=== PATIENT | female | born 1965 | race Caucasian/White ===

== ENCOUNTER → 2017-06-11 | Outpatient (CLI) | payer BC ==
[2015-11-01 16:28] VITALS: BP 98/56
--- NOTE | 2017-06-12 13:12 | MG ---
HISTORY: SCREENING Comparison: None available. FINDINGS: Bilateral CC and MLO projections of the right and left breast were obtained. Heterogeneously dense fibroglandular tissue is seen to be present. No significant architectural distortion, mass or clust ered microcalcifications can be observed to suggest malignancy. No skin thickening or nipple retrac tion is appreciated. No pathological lymphadenopathy can be identified. Benign-appearing calcifica tions scattered throughout the right and left breasts are observed. IMPRESSION: NO RADIOGRAPHIC EVIDENCE OF MALIGNANCY. ACR CATEGORY: 2 - benign findings. FOLLOW-UP EXAM 1 YEAR. Diagnostic CAD was utilized and reviewed. * 0 (ZERO) - ASSESSMENT INCOMPLETE; ADDITIONAL IMAGING IS NEEDED. * 1/1 (ONE) - NEGATIVE. * 2/II (TWO) - BENIGN FINDINGS. * 3/III (THREE) - PROBABLY BENIGN FINDING; SHORT INTERVAL FOLLOW-UP SUGGESTED. * 4/IV (FOUR) - SUSPICIOUS ABNORMALITY; BIOPSY SHOULD BE CONSIDERED. * 5/V - HIGHLY SUSPICIOUS OF MALIGNANCY; BIOPSY SHOULD BE PERFORMED. A NEGATIVE X-RAY REPORT SHOULD NOT DELAY BIOPSY IF A DOMINANT OR CLINICALLY SUSPICIOUS MASS IS PRESENT; 4 TO 8 PERCENT OF CANCERS ARE NOT IDENTIFIED BY X-RAY. A NEG ATIVE REPORT MAY REINFORCE THE CLINICAL IMPRESSION. ADENOSIS AND DENSE BREASTS MAY OBSCURE AN UNDER LYING NEOPLASM. Reported By:
== END ==
LOC: RAD 15:57
PROVIDERS: ATTEND Obstetrics & Gynecology
DX: Z12.31 Encounter for screening mammogram for malignant neoplasm of breast (principal)
CPT/HCPCS: 77067

== ENCOUNTER → 2017-07-02 | Outpatient (CLI) | payer BC ==
[2015-11-01 16:28] VITALS: BP 98/56
[~2017-07-02] MED LIST: NS 100 ML IV 100 ML IV ONE
[2017-07-02 10:09] LABS: CREATININE 0.75 mg/dL (0.55-1.02)
--- NOTE | 2017-07-02 11:54 | CT ---
CT NECK WITH IV CONTRAST CLINICAL INDICATION: Bilateral neck swelling. TECHNIQUE: Multiple-row detector helical CT examination of the neck with IV contrast per standard de partmental protocol.Dose reduction techniques including Automated Exposure Control (AEC) and adjustme nt of mA and kV were utlized. COMPARISON: None. FINDINGS: The aerodigestive structures are within normal limits. Specifically, the nasal cavity, nasopharynx, oral cavity, oropharynx, hypopharynx, larynx, and visualized trachea and esophagus demonstrate no mas ses or abnormal enhancement. No pathologically enlarged, necrotic, or otherwise abnormal lymph nodes. Submandibular glands are normal. Bilateral, small parotid calcifications and small intra parotid lymp h nodes. No ductal dilatation. The thyroid gland is normal in size without focal abnormality. Evaluation of the visualized portions of brain parenchyma and orbits demonstrates no abnormality. The visualized paranasal sinuses are predominantly clear. The tympanomastoid cavities are unopacified. T here is normal intravascular enhancement. Limited evaluation of the lung apices demonstrates no abnormality. The visualized osseous structures are within normal limits. Following administration of intravenous contrast material, there is no abnormal enhancement. IMPRESSION: 1. Bilateral, small parotid calcifications and intra parotid lymph nodes without evidence of inflamma tion or ductal obstruction. Reported By:
== END | disposition home or self-care (01) | DRG 156 ==
LOC: RAD 09:39
PROVIDERS: ATTEND Internal Medicine
DX: K11.8 Other diseases of salivary glands (principal)
CPT/HCPCS: 36415; 70491; 82565; 84520; A4222

== ENCOUNTER 2020-06-20 18:11 | Observation (INO) ==
[2020-06-20] MEDS ORDERED: TUSSIONEX PENNKINETIC SUSP ONE (20:59)
[2020-06-20] MEDS ORDERED: NS 1/2 1000 ML IV 1,000 ML IV ONE (21:00)
[2020-06-20] MEDS ORDERED: DUONEB 0.5 MG/3 MG (3 mL) NEB SCH (21:00)
[2020-06-20] MEDS ORDERED: ROBITUSSIN DM ONE (21:00)
[2020-06-20] MEDS ORDERED: VSL#3 PO ONE (21:01)
[2020-06-20] MEDS ORDERED: LEVAQUIN PREMIX IV 750 MG 750 MG/150 ML BAG IV ONE (21:01)
[2020-06-20] MEDS ORDERED: ZOFRAN INJ 4 MG VIAL IVP PRN (21:05)
[2020-06-20] MEDS ORDERED: TYLENOL 325 MG TAB PO PRN (21:05)
[2020-06-20] MEDS ORDERED: ZOFRAN INJ 4 MG VIAL ONE (21:09)
[2020-06-20] MEDS ORDERED: TYLENOL 325 MG TAB PO ONE (21:10)
[2020-06-20 21:20] LABS: BASOPHILS % (AUTO) 0.4 % (0.2-1.0); EOSINOPHILS % (AUTO) 0.1 % (0.9-2.9); HEMATOCRIT 46.8 % (36.0-47.0); HEMOGLOBIN 16.1 g/dL (12.0-16.0); LYMPHOCYTES # (AUTO) 1.2 X10^3/uL (1.3-2.9); LYMPHOCYTES % (AUTO) 22.3 % (21.0-51.0); MEAN CORPUSCULAR HEMOGLOBIN 28.6 pg (27.0-34.0); MEAN CORPUSCULAR HGB CONC 34.3 g/dL (33.0-35.0); MEAN CORPUSCULAR VOLUME 83.2 fL (80.0-100.0); MEAN PLATELET VOLUME 8.5 fL (7.4-11.0); MONOCYTES # (AUTO) 0.5 x10^3/uL (0.3-0.8); MONOCYTES % (AUTO) 8.5 % (0.0-13.0); NEUTROPHILS # (AUTO) 3.6 x10^3/uL (2.2-4.8); NEUTROPHILS % (AUTO) 68.7 % (42.0-75.0); PLATELET COUNT 160 X10^3/uL (150.0-450.0); RED BLOOD COUNT 5.63 X10^6/uL (3.5-5.4); RED CELL DISTRIBUTION WIDTH 13.1 % (11.6-16.5); WHITE BLOOD COUNT 5.3 X10^3/uL (3.6-10.0)
[2020-06-20 21:31] LABS: ALANINE AMINOTRANSFERASE 34 Units/L (12-78); ALBUMIN 3.7 g/dL (3.4-5.0); ALKALINE PHOSPHATASE 76 Units/L (46-116); ASPARTATE AMINO TRANSFERASE 52 Units/L (15-37); BLOOD UREA NITROGEN 8 mg/dL (7-18); CALCIUM 8.9 mg/dL (8.5-10.1); CARBON DIOXIDE 25.5 mmol/L (21-32); CHLORIDE 99 mmol/L (98-107); COR NA(FOR HYPERGLY) 136 mmol/L (136-145); CREATININE 0.78 mg/dL (0.55-1.02); SODIUM 135 mmol/L (136-145); TOTAL PROTEIN 7.9 g/dL (6.4-8.2); eGFR NON BLACK RACES > 60 (>60)
[2020-06-20] MEDS: LEVAQUIN PREMIX IV 750 MG 750 MG/150 ML BAG IV SCH (21:49)
[2020-06-20] MEDS: VSL#3 PO SCH (21:49)
[2020-06-20] MEDS: NS 1/2 1000 ML IV 1,000 ML IV SCH (21:49)
[2020-06-20] MEDS: ROBITUSSIN DM PO SCH (21:50)
[2020-06-20] MEDS: TUSSIONEX PENNKINETIC SUSP PO SCH (21:50)
[2020-06-20 21:51] LABS: ABG ALLEN TEST POS; ABG BASE EXCESS 1.9 mmol/L (-2.0-2.0); ABG HCO3 25.6 mmol/L (22-26)
[2020-06-20] MEDS: MUCOMYST 20% 200 MG/ML NEB SCH (22:10)
[2020-06-20] MEDS ORDERED: DUONEB 0.5 MG/3 MG (3 mL) NEB ONE (22:10)
[2020-06-20] MEDS: PULMICORT NEB TX 0.5 MG NEB SCH (22:10)
[2020-06-20] MEDS ORDERED: MUCOMYST (RESPIRATORY USE ONLY) ONE (22:11)
[2020-06-20] MEDS ORDERED: PULMICORT NEB TX 0.5 MG NEB ONE (22:11)
[2020-06-21 05:51] LABS: ABG HCO3 27.9 mmol/L (22-26)
[2020-06-21 05:52] LABS: ABG ALLEN TEST POS
[2020-06-21 06:15] LABS: BASOPHILS % (AUTO) 0.3 % (0.2-1.0); HEMOGLOBIN 14.6 g/dL (12.0-16.0); LYMPHOCYTES # (AUTO) 0.9 X10^3/uL (1.3-2.9); LYMPHOCYTES % (AUTO) 19.2 % (21.0-51.0); MEAN CORPUSCULAR HEMOGLOBIN 28.8 pg (27.0-34.0); MEAN CORPUSCULAR HGB CONC 34.8 g/dL (33.0-35.0); MEAN CORPUSCULAR VOLUME 82.8 fL (80.0-100.0); MEAN PLATELET VOLUME 8.7 fL (7.4-11.0); MONOCYTES # (AUTO) 0.4 x10^3/uL (0.3-0.8); MONOCYTES % (AUTO) 8.7 % (0.0-13.0); NEUTROPHILS # (AUTO) 3.4 x10^3/uL (2.2-4.8); NEUTROPHILS % (AUTO) 71.8 % (42.0-75.0); PLATELET COUNT 135 X10^3/uL (150.0-450.0); RED BLOOD COUNT 5.07 X10^6/uL (3.5-5.4); RED CELL DISTRIBUTION WIDTH 13.1 % (11.6-16.5); WHITE BLOOD COUNT 4.7 X10^3/uL (3.6-10.0)
--- NOTE | 2020-06-21 06:32 | RAD ---
HISTORYShortness of breathSTUDYChest AP portableCOMPARISONNoneFINDINGSThe heart is within normal limits in size. The chano are normal. The lungs are well inflated and free of acute infiltrates. No pleural effusions are identified. Bony thorax is unremarkable.IMPRESSIONLungs clearElectronically signed by: DUNIA KNIGHT (Jun 21, 2020 06:31:32)
[2020-06-21 07:12] LABS: ALANINE AMINOTRANSFERASE 30 Units/L (12-78); ALBUMIN 3.3 g/dL (3.4-5.0); ALKALINE PHOSPHATASE 67 Units/L (46-116); ASPARTATE AMINO TRANSFERASE 48 Units/L (15-37); BLOOD UREA NITROGEN 8 mg/dL (7-18); CALCIUM 8.3 mg/dL (8.5-10.1); CARBON DIOXIDE 23.8 mmol/L (21-32); CHLORIDE 99 mmol/L (98-107); COR CA(FOR HYPOALB) 8.9 mg/dL (8.5-10.1); COR NA(FOR HYPERGLY) 135 mmol/L (136-145); CREATININE 0.65 mg/dL (0.55-1.02); SODIUM 134 mmol/L (136-145); eGFR NON BLACK RACES > 60 (>60)
[2020-06-21] MEDS ORDERED: K-DUR TAB 20 MEQ PO PRN (07:58)
[2020-06-21] MEDS ORDERED: POTASSIUM CHL 60 MEQ/NS 0.45% 500 ML IV PRN (07:58)
[2020-06-21] MEDS ORDERED: K-RIDER 10 MEQ/NS 100 ML 10 MEQ/100 ML BAG IV PRN (07:58)
[2020-06-21] MEDS ORDERED: POTASSIUM CHL 40 MEQ/NS 0.45% 500 ML IV PRN (07:58)
[2020-06-21] MEDS ORDERED: MICRO K EXTEN CAP 10 MEQ PO PRN (07:58)
[2020-06-21] MEDS ORDERED: KLOR-CON PO PRN (07:58)
[2020-06-21] MEDS ORDERED: POTASSIUM CHLORIDE LIQ 20 MEQ UDC PO PRN (07:58)
[2020-06-21] MEDS ORDERED: MAGNESIUM SULFATE 1 GRAM/100 mL PREMIX 1 GM/100 ML BAG IV PRN (07:58)
[2020-06-21] MEDS ORDERED: K-DUR TAB 20 MEQ PO ONE (08:39)
[2020-06-21] MEDS ORDERED: DUONEB 0.5 MG/3 MG (3 mL) NEB SCH (09:00)
[2020-06-21] MEDS ORDERED: DECADRON TAB ONE (10:19)
[2020-06-21] MEDS: LOVENOX INJ 40 MG SYR SC SCH (10:28)
[2020-06-21] MEDS: ROBITUSSIN DM PO SCH ×4 (10:29→20:12)
[2020-06-21] MEDS: VSL#3 PO SCH (10:29)
[2020-06-21] MEDS: DECADRON TAB PO SCH (10:30)
[2020-06-21] MEDS: TUSSIONEX PENNKINETIC SUSP PO SCH ×2 (10:31→21:01)
[2020-06-21] MEDS: TORADOL 30 MG VIAL IVP SCH ×2 (10:37→18:31)
[2020-06-21] MEDS: XOPENEX 1.25 MG/3 ML NEBULE NEB SCH ×3 (10:45→17:45)
[2020-06-21] MEDS: PULMICORT NEB TX 0.5 MG NEB SCH ×2 (10:45→21:00)
[2020-06-21] MEDS: MUCOMYST 20% 200 MG/ML NEB SCH ×2 (10:45→21:00)
[2020-06-21] MEDS ORDERED: XOPENEX 1.25 MG/3 ML NEBULE NEB ONE (10:46)
[2020-06-21] MEDS ORDERED: NS 1/2 1000 ML IV 1,000 ML IV ONE (11:55)
[2020-06-21] MEDS ORDERED: SINGULAIR TAB 10 MG ONE (12:00)
[2020-06-21] MEDS ORDERED: FLONASE NASAL SPRAY ENOSTRIL ONE (12:01)
[2020-06-21] MEDS: NS 1/2 1000 ML IV 1,000 ML IV SCH (12:31)
[2020-06-21] MEDS: SINGULAIR TAB 10 MG PO SCH (12:50)
[2020-06-21] MEDS: FLONASE NASAL SPRAY ENOSTRIL SCH ×2 (12:50→20:12)
[2020-06-21] MEDS: JANUVIA PO SCH (13:54)
--- NOTE | 2020-06-21 14:36 | DR.H&P ---
H&P - History & Physical for Day of: H&P Date: 06/20/20 - Chief Complaint Chief Complaint: FEVER, CONGESTION, NAUSEA, COUGH, SOB - History of Present Illness History of Present Illness: IS A 55 YEAR OLD PATIENT OF OURS WHO PRESENTED TO THE HOSPITAL A DIRECT ADMISSION DUE TO COMPLAINTS OF FEVER, SINUS CONGESTION, NAUSEA, COUGH, AND SHORTNESS OF BREATH X 5 DAYS. SHE ADMITS TO BEING TESTED FOR COVID-19 TWO DAYS AGO, HOWEVER, RESULTS ARE STILL PENDING. SHE HAS BEEN TAKING CIPRO 500MG PO BID X 3 DAYS WITHOUT IMPROVEMENT IN SYMPTOMS. HER PAST MEDICAL HISTORY INCLUDES: HIATAL HERNIA, IBS, DIARRHEA II, APPENDECTOMY, C- SECTION, CHOLECYSTECTOMY, HYSTERECTOMY, AND HERNIA REPAIR. ON ARRIVAL TO THE ER, VITALS WERE 100.2-101-20-95%-127/86. LABS WERE OBTAINED. ABNORMAL LAB VALUES INCLUDE THE FOLLOWING: RBC 5.63, HGB 16.1, SODIUM 135, POTASSIUM 3.4, GLUCOSE 136, FERRITIN 427, TOTAL BILI 1.30, AST 52, CRP 5.40. ABG OBTAINED AND REVEALED: PH 7.460, PC02 36.0, P02 55.0, HC03 25.6, 02 SATURATION 90, FI02 21.0. BLOOD CULTURES ARE PENDING. A CHEST XTAY WAS OBTAINED AND REVEALED: LUNG CLEAR. COVID- 19 PENDING. SHE WAS STARTED ON 1/2NS AT 75 ML/HR, LEVAQUIN 750MG IV DAILY, DECADRON 6MG PO DAILY, PULMICORT NEBS BID, XOPENEX NEBS Q6H, MUCOMYST IN NEB [place] BID, TUSSIONEX 5ML PO Q12H, ROBITUSSIN DM 10ML PO QID, LOVENOX 40MG SC DAILY, TORADOL 30MG IV Q8H, HUMULIN R SLIDING SCALE, THE POTASSIUM AND MAGNESIUM PROTOCOLS, ZOFRAN 4MG IV Q6H PRN, AND HOME MEDICATIONS WERE RESUMED. OTHERWISE, WE PLAN TO FOLLOW UP WITH AM LABS, CHEST XRAY, ABG, AND CONTINUE TO MONITOR. - Past Medical History Past Medical History: Diabetes, GERD, Hypertension Additional Medical History: IBS, HIATAL HERNIA - Past Surgical History Surgical History: Appendectomy, , Cholecystectomy, Hysterectomy Additional Surgical History: HERNIA REPAIR - Family History Family Medical History: Hypertension - Social History Alcohol Use: None Drug Use: None - Medications Home Medications: Sulfa (Sulfonamide Antibiotics) [SULFA] Allergy (Verified 06/20/20 21:28) CONTINUE taking the following medications fluticasone propionate [Flonase Allergy Relief] 1 spray INTRANASAL BID 06/20/20 [History] montelukast 10 mg PO DAILY 06/20/20 [History] nebivolol [Bystolic] 2.5 mg PO DAILY 06/20/20 [History] rosuvastatin 10 mg PO HS 06/20/20 [History] semaglutide [Ozempic] 0.5 mg SUBCUT QWEEK 06/20/20 [History] sitagliptin [Januvia] 100 mg PO DAILY 06/20/20 [History] - Review of Systems Constitutional: See HPI, Fever, Chills, Weakness Eyes: No Symptoms Reported ENT: Nose Congestion Respiratory: See HPI, Cough, Shortness of Breath, SOB with Excertion Cardiovascular: No Symptoms Reported Gastrointestinal: Nausea Genitourinary: No Symptoms Reported Musculoskeletal: No Symptoms Reported Skin: No Symptoms Reported Neurological: No Symptoms Reported - Physical Exam Vital Signs: Temperature 98.2 F Pulse Rate [Right Brachial] 97 Pulse Rate 90 Respiratory Rate 20 Blood Pressure [Right Arm] 115/61 Blood Pressure [Left Arm] 119/79 Blood Pressure 98/56 O2 Sat by Pulse Oximetry 95 Oriented: Normal Eyes: Normal Ear: Normal Nose: Normal Throat: Normal Respiratory: Diminished Throughout Cardiovascular: Tachycardia : Normal Auscultation: Bowel Sounds: Normal Palpation: Normal Tenderness: Normal Skin: Normal Musculoskeletal: Normal Psychiatric: Normal Mood Description: Calm Affect: Normal Speech Pattern: Clear - Assessment/Plan (1) Acute bronchitis Qualifiers: Bronchitis organism: unspecified organism Qualified Code(s): J20.9 - Acute bronchitis, unspecified Status: Acute Plan: ADMIT, 1/2NS AT 75 ML/HR, LEVAQUIN 750MG IV DAILY, DECADRON 6MG PO DAILY, PULMICORT NEBS BID, XOPENEX NEBS Q6H, MUCOMYST IN NEB [place] BID, TUSSIONEX 5ML PO Q12H, ROBITUSSIN DM 10ML PO QID, LOVENOX 40MG SC DAILY, TORADOL 30MG IV Q8H, HUMULIN R SLIDING SCALE, THE POTASSIUM AND MAGNESIUM PROTOCOLS, ZOFRAN 4MG IV Q6H PRN, AND HOME MEDICATIONS WERE RESUMED. (2) Fever Qualifiers: Fever type: unspecified Qualified Code(s): R50.9 - Fever, unspecified Status: Acute (3) Shortness of breath Status: Acute (4) Suspected COVID-19 virus infection Status: Acute - Allergies Allergies/Adverse Reactions: Allergies Allergy/AdvReac Type Severity Reaction Status Date / Time Sulfa (Sulfonamide Allergy Verified 06/20/20 21:28 Antibiotics) [SULFA]
[2020-06-21] MEDS: NEBIVOLOL 2.5 MG PO SCH (16:09)
[2020-06-21] MEDS: HumuLIN R SUBCUT PRN ×2 (18:02→21:01)
[2020-06-21 19:03] VITALS: BMI 42.7
[2020-06-21] MEDS ORDERED: SNACK - Diabetic Appropriate PO SCH (20:00)
[2020-06-21] MEDS: LEVAQUIN PREMIX IV 750 MG 750 MG/150 ML BAG IV SCH (20:11)
[2020-06-21] MEDS ORDERED: CRESTOR TAB 10 MG PO SCH (21:00)
[2020-06-22] MEDS: TORADOL 30 MG VIAL IVP SCH ×2 (01:51→09:59)
[2020-06-22] MEDS: NS 1/2 1000 ML IV 1,000 ML IV SCH ×2 (02:06→06:42)
[2020-06-22 05:38] LABS: BASOPHILS % (AUTO) 0.2 % (0.2-1.0); HEMATOCRIT 39.7 % (36.0-47.0); HEMOGLOBIN 13.5 g/dL (12.0-16.0); LYMPHOCYTES # (AUTO) 0.7 X10^3/uL (1.3-2.9); LYMPHOCYTES % (AUTO) 12.4 % (21.0-51.0); MEAN CORPUSCULAR HEMOGLOBIN 28.6 pg (27.0-34.0); MEAN CORPUSCULAR HGB CONC 34.1 g/dL (33.0-35.0); MONOCYTES # (AUTO) 0.4 x10^3/uL (0.3-0.8); MONOCYTES % (AUTO) 7.9 % (0.0-13.0); NEUTROPHILS # (AUTO) 4.2 x10^3/uL (2.2-4.8); NEUTROPHILS % (AUTO) 79.5 % (42.0-75.0); PLATELET COUNT 131 X10^3/uL (150.0-450.0); RED BLOOD COUNT 4.72 X10^6/uL (3.5-5.4); RED CELL DISTRIBUTION WIDTH 12.9 % (11.6-16.5); WHITE BLOOD COUNT 5.3 X10^3/uL (3.6-10.0)
[2020-06-22 05:45] LABS: ALANINE AMINOTRANSFERASE 29 Units/L (12-78); ALBUMIN 3.1 g/dL (3.4-5.0); ALKALINE PHOSPHATASE 65 Units/L (46-116); ASPARTATE AMINO TRANSFERASE 44 Units/L (15-37); BLOOD UREA NITROGEN 9 mg/dL (7-18); CALCIUM 8.3 mg/dL (8.5-10.1); CARBON DIOXIDE 27.1 mmol/L (21-32); CHLORIDE 102 mmol/L (98-107); COR NA(FOR HYPERGLY) 138 mmol/L (136-145); CREATININE 0.67 mg/dL (0.55-1.02); MAGNESIUM 2.3 mg/dL (1.7-2.9); SODIUM 137 mmol/L (136-145); TOTAL PROTEIN 6.7 g/dL (6.4-8.2); eGFR NON BLACK RACES > 60 (>60)
[2020-06-22] MEDS ORDERED: NS 1/2 1000 ML IV 1,000 ML IV ONE (06:21)
--- NOTE | 2020-06-22 06:23 | RAD ---
HISTORYSOBSTUDYCHEST, 1 [id number]/12/2020TECHNIQUEAP view of the chestFINDINGSCardiac and mediastinal contours are stable. No consolidation, segmental collapse, pleural effusion or pneumothorax.IMPRESSIONNo acute pulmonary process.Electronically signed by: Donal Starks (Jun 22, 2020 06:22:09)
[2020-06-22 06:35] LABS: ABG HCO3 25.2 mmol/L (22-26)
[2020-06-22 06:36] LABS: ABG ALLEN TEST POS
[2020-06-22] MEDS ORDERED: TUSSIONEX PENNKINETIC SUSP ONE (08:09)
[2020-06-22] MEDS: TUSSIONEX PENNKINETIC SUSP PO SCH (09:12)
[2020-06-22] MEDS: LOVENOX INJ 40 MG SYR SC SCH (09:13)
[2020-06-22] MEDS: FLONASE NASAL SPRAY ENOSTRIL SCH (09:13)
[2020-06-22] MEDS: VSL#3 PO SCH (09:14)
[2020-06-22] MEDS: DECADRON TAB PO SCH (09:20)
[2020-06-22] MEDS: JANUVIA PO SCH (09:21)
[2020-06-22] MEDS: ROBITUSSIN DM PO SCH (09:22)
[2020-06-22] MEDS: SINGULAIR TAB 10 MG PO SCH (09:22)
[2020-06-22] MEDS: PULMICORT NEB TX 0.5 MG NEB SCH (11:00)
[2020-06-22] MEDS: XOPENEX 1.25 MG/3 ML NEBULE NEB SCH (11:00)
[2020-06-22] MEDS: MUCOMYST 20% 200 MG/ML NEB SCH (11:00)
[2020-06-22] MEDS: NEBIVOLOL 2.5 MG PO SCH (11:03)
[2020-06-22 13:05] VITALS: BP 110/66
== END 2020-06-22 12:40 | disposition home or self-care (01) ==
LOC: MED/SURG
PROVIDERS: ADMIT Internal Medicine; ATTEND Internal Medicine
DX: R50.9 Fever, unspecified; Z20.818 Contact with and (suspected) exposure to other bacterial communicable diseases; R79.82 Elevated C-reactive protein (CRP); J20.9 Acute bronchitis, unspecified; R73.09 Other abnormal glucose; R06.02 Shortness of breath

== ENCOUNTER 2020-06-23 12:28 | Inpatient (IN) ==
[2020-06-23] MEDS ORDERED: NS 1000 ML 1,000 ML ONE ×3 (12:44→21:20)
[2020-06-23] MEDS ORDERED: NS 1000 ML 1,000 ML IV ONE ×2 (12:47→15:31)
--- NOTE | 2020-06-23 13:21 | RAD ---
HISTORYFever SOBSTUDYPortable AP [id number]/14/2020FINDINGSNormal heart size. The right lung is essentially clear. The left diaphragm is now obscured, previously visible. There may be a left lower lobe airspace process present. No pleural fluid or pneumothorax seen.IMPRESSIONNo definite abnormality identified although there may be a developing pneumonia in the left lower lobe. See above. Correlate clinically with follow-up to confirm or exclude.Electronically signed by: RIKA STERLING (Jun 23, 2020 13:19:41)
[2020-06-23 13:26] LABS: BASOPHILS % (AUTO) 0.1 % (0.2-1.0); HEMATOCRIT 39.4 % (36.0-47.0); HEMOGLOBIN 13.6 g/dL (12.0-16.0); LYMPHOCYTES # (AUTO) 0.9 X10^3/uL (1.3-2.9); LYMPHOCYTES % (AUTO) 11.9 % (21.0-51.0); MEAN CORPUSCULAR HEMOGLOBIN 28.5 pg (27.0-34.0); MEAN CORPUSCULAR HGB CONC 34.4 g/dL (33.0-35.0); MEAN CORPUSCULAR VOLUME 82.9 fL (80.0-100.0); MEAN PLATELET VOLUME 8.2 fL (7.4-11.0); MONOCYTES # (AUTO) 0.4 x10^3/uL (0.3-0.8); MONOCYTES % (AUTO) 4.6 % (0.0-13.0); NEUTROPHILS # (AUTO) 6.5 x10^3/uL (2.2-4.8); NEUTROPHILS % (AUTO) 83.4 % (42.0-75.0); PLATELET COUNT 157 X10^3/uL (150.0-450.0); RED BLOOD COUNT 4.76 X10^6/uL (3.5-5.4); WHITE BLOOD COUNT 7.8 X10^3/uL (3.6-10.0)
[2020-06-23 13:36] LABS: ALANINE AMINOTRANSFERASE 23 Units/L (12-78); ALBUMIN 2.9 g/dL (3.4-5.0); ALKALINE PHOSPHATASE 58 Units/L (46-116); ASPARTATE AMINO TRANSFERASE 37 Units/L (15-37); BLOOD UREA NITROGEN 12 mg/dL (7-18); CALCIUM 8.3 mg/dL (8.5-10.1); CARBON DIOXIDE 26.4 mmol/L (21-32); CHLORIDE 101 mmol/L (98-107); COR CA(FOR HYPOALB) 9.2 mg/dL (8.5-10.1); COR NA(FOR HYPERGLY) 138 mmol/L (136-145); CREATININE 0.77 mg/dL (0.55-1.02); SODIUM 137 mmol/L (136-145); TOTAL PROTEIN 6.8 g/dL (6.4-8.2); eGFR NON BLACK RACES > 60 (>60)
--- NOTE | 2020-06-23 14:31 | DR.GENAD ---
HPI Time Seen Time Seen by Provider: 06/23/20 13:58 PCP Primary Care Physician: BLANE HPI Comment HPI Comment: According to pt she has been treated azithromax , hydroxychloroquine after admitted to hospital .Pt was discharged home yesterday .returns indicating she had high temp and shortness of breath and not feeling well .returns for evaluation Complaint/Symptoms Chief Complaint:: PT. WAS ADMITTED TO THE HOSPITAL ON THURSDAY PER DR. ARGUELLES FOR POTENTIAL COVID. PT. WAS DISCHARGED YESTERDAY. SPOUSE STATES OVER NIGHT, PT. BECAME WORSE. PT. C/O FEVER, SHORTNESS OF BREATH, FATIGUE AND BODY ACHES. 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 PT'S TEMP. WAS 103.6. PT. STATES COVID REPORT CAME BACK NEGATIVE. COVID-19 Coronavirus risk:travel/contact w/high risk person: No Has patient experienced Coronavirus symptoms: Yes Coronavirus symptoms experienced: Fever and Shortness of Breath Source History Provided: Patient and Family Member Mode of Arrival Mode of Arrival: Wheelchair Timing Onset of Chief Complaint: 06/23/20 PMH PMH Past Medical History: Yes Past Medical History: Diabetes, GERD and Hypertension Past Surgical History: Yes Surgical History: Appendectomy, , Cholecystectomy and Hysterectomy Family History History of Family Medical Conditions: Yes Family Medical History: Hypertension Social History Does patient currently use any type of tobacco product: No Have you used tobacco products in the last 12 months: No Type of Tobacco Use: None Does any household member use tobacco: No Alcohol Use: None Do you use any recreational Drugs:: No Lives With: Spouse Lives Where: Home Travel Risk Coronavirus risk:travel/contact w/high risk person: No Has patient experienced Coronavirus symptoms: Yes Coronavirus symptoms experienced: Fever and Shortness of Breath Infectious screening In the last 2 months have you had wt loss of >10#?: NO Have you had fever, night sweats or hemotysis?: No Have you traveled outside the country in the last 6 months?: No Isolation: Droplet ROS Review of Systems Constitutional: Chills, Fever and Weakness Eyes: No Symptoms Reported ENTM: No Symptoms Reported Respiratoy: Dry Cough and Short of Breath Cardiovascular: No Symptoms Reported Gastrointestinal/Abdominal: No Symptoms Reported Genitourinary: No Symptoms Reported Neurological: No Symptoms Reported Musculoskeletal: No Symptoms Reported Integumentary: See HPI Hematologic/Lymphatic: No Symptoms Reported PE Vital Signs Vitals: Temperature 98.6 F Pulse Rate 75 Respiratory Rate 20 Blood Pressure [Right Arm] 110/66 Blood Pressure 140/79 O2 Sat by Pulse Oximetry 95 General Limitations: No Limitations General Appearance: Alert, Anxious and In Distress Eyes Eye exam: Normal Appearance and PERRL ENT ENT Exam: Normal Oropharynx and Mucous Membranes Moist TM/Canal Exam: Bilateral: Normal Neck Neck Exam: Normal Inspection and Full ROM Chest Chest Inspection: Normal Inspection Respiratory Respiratory Exam: Normal Lung Sounds Bilat and Accessory Muscle Use Cardiovascular Cardiovascular Exam: Tachycardia, +S1 and +S2 Abdominal Exam Abdominal Exam: Normal Inspection, Normal Bowel Sounds and Soft Extremities Extremities Exam: Normal Inspection and Full ROM Back Back Exam: Normal Inspection Neurologic Neurological Exam: Alert and Oriented X3 Psychiatric Psychiatric Exam: Normal Affect Skin Skin Exam: Warm MDM Differential Diagnosis Differential Diagnosis: covid pos, cough ,hypoxia COURSE Treatment Treatment: IV fluids oxygen ROR Labs Reviewed Result Diagrams: 06/23/20 13:04 06/23/20 13:04 Laboratory: WBC 7.8 X10^3/uL (3.6-10.0) 06/23/20 13:04 RBC 4.76 X10^6/uL (3.5-5.4) 06/23/20 13:04 Hgb 13.6 g/dL (12.0-16.0) 06/23/20 13:04 Hct 39.4 % (36.0-47.0) 06/23/20 13:04 MCV 82.9 fL (80.0-100.0) 06/23/20 13:04 MCH 28.5 pg (27.0-34.0) 06/23/20 13:04 MCHC 34.4 g/dL (33.0-35.0) 06/23/20 13:04 RDW 13.0 % (11.6-16.5) 06/23/20 13:04 Plt Count 157 X10^3/uL (150.0-450.0) 06/23/20 13:04 MPV 8.2 fL (7.4-11.0) 06/23/20 13:04 Neut % (Auto) 83.4 % (42.0-75.0) H 06/23/20 13:04 Lymph % (Auto) 11.9 % (21.0-51.0) L 06/23/20 13:04 Weld % (Auto) 4.6 % (0.0-13.0) 06/23/20 13:04 Eos % (Auto) 0.0 % (0.9-2.9) L 06/23/20 13:04 Baso % (Auto) 0.1 % (0.2-1.0) L 06/23/20 13:04 Neut # (Auto) 6.5 x10^3/uL (2.2-4.8) H 06/23/20 13:04 Lymph # (Auto) 0.9 X10^3/uL (1.3-2.9) L 06/23/20 13:04 Weld # (Auto) 0.4 x10^3/uL (0.3-0.8) 06/23/20 13:04 Eos # (Auto) 0.0 x10^3/uL (0.0-0.2) 06/23/20 13:04 Baso # (Auto) 0.0 X10^3/uL (0.0-0.1) 06/23/20 13:04 Absolute Nucleated RBC 0.0 /100WBC 06/23/20 13:04 Sodium 137 mmol/L (136-145) 06/23/20 13:04 Corrected Sodium 138 mmol/L (136-145) 06/23/20 13:04 Potassium 3.4 mmol/L (3.5-5.1) L 06/23/20 13:04 Chloride 101 mmol/L (98-107) 06/23/20 13:04 Carbon Dioxide 26.4 mmol/L (21-32) 06/23/20 13:04 BUN 12 mg/dL (7-18) 06/23/20 13:04 Creatinine 0.77 mg/dL (0.55-1.02) 06/23/20 13:04 Est GFR (MDRD) Af Amer > 60 (>60) 06/23/20 13:04 Est GFR (MDRD) Non-Af > 60 (>60) 06/23/20 13:04 Glucose 124 mg/dL (65-99) H 06/23/20 13:04 Calcium 8.3 mg/dL (8.5-10.1) L 06/23/20 13:04 Corrected Calcium 9.2 mg/dL (8.5-10.1) 06/23/20 13:04 Ferritin 418 ng/mL (8-252) H 06/23/20 13:04 Total Bilirubin 1.20 mg/dL (0.2-1.0) H 06/23/20 13:04 AST 37 Units/L (15-37) 06/23/20 13:04 ALT 23 Units/L (12-78) 06/23/20 13:04 Alkaline Phosphatase 58 Units/L (46-116) 06/23/20 13:04 C-Reactive Protein 41.90 mg/L (0-3.0) H 06/23/20 13:04 Total Protein 6.8 g/dL (6.4-8.2) 06/23/20 13:04 Albumin 2.9 g/dL (3.4-5.0) L 06/23/20 13:04 Globulin 3.9 g/dL (2.5-4.5) 06/23/20 13:04 Albumin/Globulin Ratio 0.7 Ratio (1.1-2.1) L 06/23/20 13:04 Opioid Opioid Risk Tool Age (Brandon box if 16-45): No History of Preadolescent Sexual Abuse: No Total: 0 Total Score Risk Category: Low Risk Copyright: Victor M JUAREZ predicting aberrant behaviors
[2020-06-23] MEDS ORDERED: PLAQUENIL PO SCH (21:00)
[2020-06-23] MEDS ORDERED: LOVENOX INJ 30 MG SYR SC ONE (21:07)
[2020-06-23] MEDS ORDERED: PLAQUENIL PO ONE (21:07)
[2020-06-23] MEDS ORDERED: NS 100 ML IV 100 ML IV ONE (21:11)
[2020-06-23] MEDS ORDERED: ASCORBIC ACID INJ MULTI-DOSE VIAL IV ONE (21:12)
[2020-06-23] MEDS: ZINC SULFATE PO SCH (21:16)
[2020-06-23] MEDS: LOVENOX INJ 30 MG SYR SC SCH (21:17)
[2020-06-23] MEDS: ASCORBIC ACID INJ MULTI-DOSE VIAL 1,500 MG in NS 100 ML IV 100 ML IV SCH (21:17)
[2020-06-24] MEDS ORDERED: TYLENOL 325 MG TAB PO ONE (00:13)
[2020-06-24] MEDS: TYLENOL 325 MG TAB PO PRN ×3 (00:15→21:47)
[2020-06-24 00:31] VITALS: BMI 42.8
[2020-06-24] MEDS: NS 1000 ML 1,000 ML IV SCH ×3 (00:55→19:02)
[2020-06-24] MEDS: ASCORBIC ACID INJ MULTI-DOSE VIAL 1,500 MG in NS 100 ML IV 100 ML IV SCH ×4 (02:39→21:43)
[2020-06-24] MEDS ORDERED: DUONEB 0.5 MG/3 MG (3 mL) NEB ONE (04:05)
[2020-06-24 05:35] LABS: BASOPHILS % (AUTO) 0.1 % (0.2-1.0); HEMATOCRIT 36.3 % (36.0-47.0); HEMOGLOBIN 12.4 g/dL (12.0-16.0); MEAN CORPUSCULAR HEMOGLOBIN 28.7 pg (27.0-34.0); MEAN CORPUSCULAR HGB CONC 34.2 g/dL (33.0-35.0); MEAN CORPUSCULAR VOLUME 83.9 fL (80.0-100.0); MEAN PLATELET VOLUME 8.6 fL (7.4-11.0); MONOCYTES # (AUTO) 0.3 x10^3/uL (0.3-0.8); MONOCYTES % (AUTO) 4.3 % (0.0-13.0); NEUTROPHILS # (AUTO) 4.9 x10^3/uL (2.2-4.8); NEUTROPHILS % (AUTO) 79.6 % (42.0-75.0); PLATELET COUNT 134 X10^3/uL (150.0-450.0); RED BLOOD COUNT 4.33 X10^6/uL (3.5-5.4); RED CELL DISTRIBUTION WIDTH 12.9 % (11.6-16.5); WHITE BLOOD COUNT 6.1 X10^3/uL (3.6-10.0)
[2020-06-24] MEDS: DUONEB 0.5 MG/3 MG (3 mL) NEB SCH ×3 (05:43→20:10)
[2020-06-24 06:05] LABS: ALANINE AMINOTRANSFERASE 20 Units/L (12-78); ALBUMIN 2.6 g/dL (3.4-5.0); ALKALINE PHOSPHATASE 50 Units/L (46-116); ASPARTATE AMINO TRANSFERASE 39 Units/L (15-37); BLOOD UREA NITROGEN 6 mg/dL (7-18); CALCIUM 7.7 mg/dL (8.5-10.1); CHLORIDE 101 mmol/L (98-107); COR CA(FOR HYPOALB) 8.8 mg/dL (8.5-10.1); CREATININE 0.59 mg/dL (0.55-1.02); SODIUM 135 mmol/L (136-145); TOTAL PROTEIN 6.1 g/dL (6.4-8.2); eGFR NON BLACK RACES > 60 (>60)
[2020-06-24] MEDS: ZINC SULFATE PO SCH ×2 (08:50→21:45)
[2020-06-24] MEDS: LOVENOX INJ 30 MG SYR SC SCH ×2 (08:59→21:43)
[2020-06-24] MEDS ORDERED: VITAMIN A PO SCH ×3 (09:00→11:00)
[2020-06-24] MEDS ORDERED: DECADRON TAB PO SCH (09:00)
[2020-06-24] MEDS ORDERED: VITAMIN D (1.25MG) PO SCH (09:00)
[2020-06-24] MEDS ORDERED: PLAQUENIL PO ONE (09:11)
[2020-06-24] MEDS ORDERED: REMDESIVIR (INVESTIGATIONAL DRUG GS-5734) 200 MG in NS 250 ML IV 250 ML IV NR (10:00)
[2020-06-24] MEDS ORDERED: DECADRON INJ PRESERVATIVE-FREE ONE (10:55)
[2020-06-24] MEDS ORDERED: ZOFRAN INJ 4 MG VIAL ONE (10:55)
[2020-06-24] MEDS ORDERED: ATIVAN INJ 2 MG VIAL ONE (10:56)
[2020-06-24] MEDS ORDERED: NS 50 ML IV 50 ML IV ONE (10:59)
[2020-06-24] MEDS: ZOFRAN INJ 4 MG VIAL 16 MG, ATIVAN INJ 2 MG VIAL 1 MG, DECADRON INJ 10 MG in NS 50 ML I... IV PRN (11:01)
[2020-06-24] MEDS: SOLU-Medrol 40 MG VIAL IVP SCH ×3 (11:02→21:45)
[2020-06-24 11:43] LABS: ABG ALLEN TEST POSS; ABG BASE EXCESS 1.6 mmol/L (-2.0-2.0); ABG HCO3 23.9 mmol/L (22-26)
[2020-06-24] MEDS: PULMICORT NEB TX 0.5 MG NEB SCH ×2 (14:20→20:10)
[2020-06-24] MEDS ORDERED: SOLU-Medrol 40 MG VIAL ONE ×2 (15:25→21:02)
[2020-06-24] MEDS ORDERED: POTASSIUM CHL 40 MEQ/NS 0.45% 500 ML IV PRN (16:34)
[2020-06-24] MEDS ORDERED: KLOR-CON PO PRN (16:34)
[2020-06-24] MEDS ORDERED: K-DUR TAB 20 MEQ PO PRN (16:34)
[2020-06-24] MEDS ORDERED: MICRO K EXTEN CAP 10 MEQ PO PRN (16:34)
[2020-06-24] MEDS ORDERED: POTASSIUM CHL 60 MEQ/NS 0.45% 500 ML IV PRN (16:34)
[2020-06-24] MEDS ORDERED: POTASSIUM CHLORIDE LIQ 20 MEQ UDC PO PRN (16:34)
[2020-06-24] MEDS ORDERED: K-RIDER 10 MEQ/NS 100 ML 10 MEQ/100 ML BAG IV PRN (16:34)
[2020-06-24] MEDS ORDERED: K-DUR TAB 20 MEQ PO ONE (16:40)
[2020-06-24] MEDS ORDERED: MAGNESIUM SULFATE 1 GRAM/100 mL PREMIX 1 GM/100 ML BAG IV PRN (16:58)
[2020-06-24] MEDS ORDERED: MAGNESIUM SULFATE 1 GRAM/100 mL PREMIX 1 G/100 ML BAG IV ONE (17:05)
--- NOTE | 2020-06-24 20:11 | DR.UPDATE ---
H&P Update History and Physical Update: History and Physical reviewed and patient examined. Changes noted: Yes with the following: WAS DISCHARGED FROM THE HOSPITAL ON 06/22/20 FOLLOWING TREATMENT FOR ACUTE BRONCHITIS AND SUSPECTED COVID. SHE WAS STABLE UPON DISCHARGE, HOWEVER, SHE RETURNED 06/23/20 REPORTING INCREASED SHORTNESS OF BREATH, FATIGUE, BODY ACHES, COUGH, AND FEVER. ON ARRIVAL TO THE ER, VITALS WERE 99.4-84-22-93%RA-98/52. LABS WERE OBTAINED. ABNRORMAL LAB VALUES INCLUDE THE FOLLOWING: POTASSIUM 3.4, GLUCOSE 124, CALCIUM 8.3, FERRITIN 418, TOTAL BILI 1.20, CRP 41.90, ALBUMIN 2.9. AN ABG WAS OBTAINED AND REVEALED: PH 7.510, PC02 30.0, P02 79.0, HC03 23.9, 02 SATURATION 97, BASE EXCESS 1.6, FI02 36.0. A CHEST XRAY WAS OBTAINED AND REVEALED: No definite abnormality identified although there may be a developing pneumonia in the left lower lobe. SHE WAS READMITTED FOR FURTHER EVALUATION AND TREATMENT OF DEVELOPING PNEUMONIA AND SUSPECTED COVID. SHE WAS STARTED ON NS AT KVO, REMDESIVIR 200MG IV X 1, THEN 100MG IV DAILY, SOLU-MEDROL 80MG IV Q8H, LOVENOX 30MG SC BID, DUONEBS TID, PULMICORT NEBS BID, THE POTASSIUM AND MAGNESIUM PROTOCOL, ASCORBIC ACID 1500MG IV Q6H, VITAMIN A DAILY, ZINC 220MG PO BID, AND A ZOFRAN COCKTAIL. WE WILL REVIEW HER HOME MEDICATIONS. OTHERWISE, WE WILL FOLLOW UP WITH AM LABS, CHEST XRAY, ABG, AND CONTINUE TO MONITOR. H&P Reviewed: Yes Patient was examined?: Yes
[2020-06-24] MEDS ORDERED: HumuLIN R ONE (22:00)
[2020-06-24] MEDS: HumuLIN R SUBCUT PRN (22:28)
[2020-06-25] MEDS: ASCORBIC ACID INJ MULTI-DOSE VIAL 1,500 MG in NS 100 ML IV 100 ML IV SCH ×4 (02:00→21:14)
[2020-06-25] MEDS ORDERED: SOLU-Medrol 40 MG VIAL ONE (04:54)
[2020-06-25 05:06] LABS: ABG ALLEN TEST POS; ABG HCO3 24.8 mmol/L (22-26)
[2020-06-25] MEDS ORDERED: SOLU-Medrol 125 MG VIAL ONE (05:37)
[2020-06-25] MEDS: SOLU-Medrol 40 MG VIAL IVP SCH ×3 (06:03→22:31)
[2020-06-25] MEDS: HumuLIN R SUBCUT PRN ×4 (06:04→21:15)
--- NOTE | 2020-06-25 06:05 | RAD ---
HISTORYSOB, COVID +STUDYCHEST, 1 [id number]/15/2020TECHNIQUEAP view of the chestFINDINGSCardiac and mediastinal contours are stable. Stable bilateral scattered interstitial opacities. No pleural effusion or pneumothorax.IMPRESSIONNo significant change in mild interstitial opacities consistent with covid 19.Electronically signed by: Donal Starks (Jun 25, 2020 06:04:48)
[2020-06-25 06:11] LABS: ALANINE AMINOTRANSFERASE 23 Units/L (12-78); ALBUMIN 2.6 g/dL (3.4-5.0); ALKALINE PHOSPHATASE 57 Units/L (46-116); ASPARTATE AMINO TRANSFERASE 38 Units/L (15-37); BLOOD UREA NITROGEN 8 mg/dL (7-18); CALCIUM 8.3 mg/dL (8.5-10.1); CARBON DIOXIDE 23.9 mmol/L (21-32); CHLORIDE 105 mmol/L (98-107); COR CA(FOR HYPOALB) 9.4 mg/dL (8.5-10.1); COR NA(FOR HYPERGLY) 142 mmol/L (136-145); CREATININE 0.54 mg/dL (0.55-1.02); MAGNESIUM 2.3 mg/dL (1.7-2.9); SODIUM 139 mmol/L (136-145); TOTAL PROTEIN 6.8 g/dL (6.4-8.2); eGFR NON BLACK RACES > 60 (>60)
[2020-06-25 06:15] LABS: BASOPHILS % (AUTO) 0 % (0.2-1.0); EOSINOPHILS % (AUTO) 0.1 % (0.9-2.9); HEMATOCRIT 38.7 % (36.0-47.0); HEMOGLOBIN 13.1 g/dL (12.0-16.0); LYMPHOCYTES # (AUTO) 0.5 X10^3/uL (1.3-2.9); LYMPHOCYTES % (AUTO) 9.6 % (21.0-51.0); MEAN CORPUSCULAR HEMOGLOBIN 28.4 pg (27.0-34.0); MEAN CORPUSCULAR HGB CONC 33.9 g/dL (33.0-35.0); MEAN CORPUSCULAR VOLUME 83.8 fL (80.0-100.0); MONOCYTES # (AUTO) 0.1 x10^3/uL (0.3-0.8); MONOCYTES % (AUTO) 2.9 % (0.0-13.0); NEUTROPHILS # (AUTO) 4.5 x10^3/uL (2.2-4.8); NEUTROPHILS % (AUTO) 87.4 % (42.0-75.0); PLATELET COUNT 172 X10^3/uL (150.0-450.0); RED BLOOD COUNT 4.62 X10^6/uL (3.5-5.4); WHITE BLOOD COUNT 5.1 X10^3/uL (3.6-10.0)
[2020-06-25] MEDS: DUONEB 0.5 MG/3 MG (3 mL) NEB SCH ×3 (06:34→20:05)
[2020-06-25] MEDS: PULMICORT NEB TX 0.5 MG NEB SCH ×2 (08:45→20:05)
[2020-06-25] MEDS ORDERED: REMDESIVIR (INVESTIGATIONAL DRUG GS-5734) IV ONE (08:48)
[2020-06-25] MEDS ORDERED: VITAMIN A PO SCH (09:00)
[2020-06-25] MEDS ORDERED: NS 250 ML IV 250 ML IV ONE (09:19)
[2020-06-25] MEDS ORDERED: LOVENOX INJ 40 MG SYR SC SCH (10:00)
[2020-06-25] MEDS: ZINC SULFATE PO SCH ×2 (10:04→21:13)
[2020-06-25] MEDS: VITAMIN A PO SCH (10:04)
[2020-06-25] MEDS: REMDESIVIR (INVESTIGATIONAL DRUG GS-5734) 100 MG in NS 250 ML IV 250 ML IV SCH (10:05)
[2020-06-25] MEDS: VITAMIN D3 125 mcg (5,000 UNITS) PO SCH (10:05)
[2020-06-25] MEDS: ELIQUIS PO SCH ×2 (11:41→21:14)
[2020-06-25] MEDS: TUSSIONEX PENNKINETIC SUSP PO SCH ×2 (11:43→22:33)
[2020-06-25] MEDS: FLONASE NASAL SPRAY ENOSTRIL SCH ×2 (11:43→21:15)
[2020-06-25] MEDS: TESSALON PERLES PO SCH ×3 (11:44→21:10)
[2020-06-25] MEDS: JANUVIA PO SCH (11:44)
[2020-06-25] MEDS: SINGULAIR TAB 10 MG PO SCH (11:44)
--- NOTE | 2020-06-25 18:13 | PCM.PROG ---
Progress Note - Progress Note for Day of Date of Exam: 06/25/20 - Subjective Subjective: IS BEING TREATED FOR PNEUMONIA DUE TO SUSPECTED COVID-19. HER COVID TEST LAST WEEK WAS NEGATIVE, HOWEVER, HER SPOUSE HAS TESTED POSITIVE AND LABS ARE INDICITIVE OF COVID. TODAY, SHE IS ALERT AND ORIENTED, LYING IN BED ON MORNING ROUNDS. SHE CONTINUES WITH COMPLAINTS OF COUGH, SHORNTESS OF BREATH, WEAKNESS, AND BODY ACHES. SHE REPORTS INCREASE IN SHORTNESS OF BREATH TODAY. ON EXAMINATION, HEART IS REGULAR IN RATE AND RHYTHM. BILATERAL LUNGS ARE NOTED WITH SCATTERED WHEEZING THROUGHOUT. ABDOMEN IS ROUND, SOFT, AND NON-TENDER WITH NORMAL BOWEL SOUNDS NOTED IN ALL QUADRANTS. HER VITALS THIS MORNING ARE: 97.7-91-24-90%NC-111/56. LABS WERE OBTAINED. ABNORMAL LAB VALUES INCLUDE THE FOLLOWING: CREATININE 0.54, GLUCOSE 219, CALCIUM 8.3, FERRITIN 609, AST 38, CRP 108.40, ALBUMIN 2.6. AN ABG WAS OBTAINED AND REVEALED: PH 7.400, PC02 40.0, P02 57.0, HC03 24.8, 02 SATURATION 89.0, FI02 36.0. A CHEST XRAY WAS OBTAINED AND REVEALED: No significant change in mild interstitial opacities consistent with covid 19. SHE IS CURRENTLY RECEIVING NS AT KVO, REMDESIVIR 100MG IV DAILY, SOLU-MEDROL 80MG IV Q8H, LOVENOX 30MG SC BID, DUONEBS TID, PULMICORT NEBS BID, THE POTASSIUM AND MAGNESIUM PROTOCOL, ASCORBIC ACID 1500MG IV Q6H, VITAMIN A DAILY, ZINC 220MG PO BID, AND A ZOFRAN COCKTAIL. WE HAVE ORDERED A UNIT OF [facility]ES[facility] PLASMA AND WILL TRANSFUSE WHEN IT IS AVAILABLE. OTHERWISE, WE PLAN TO FOLLOW UP WITH AM LABS, CHEST XRAY, AND ABG AND CONTINUE TO MONITOR. - Past Medical Family Social History Past Med/Fam/Surg Hx: No changes since H&P Allergies: Allergies Sulfa (Sulfonamide Antibiotics) [SULFA] Allergy (Verified 06/23/20 12:40) - Review of Systems ROS: No change since H&P - Vital Signs and I&O's Vital Signs: Temperature 97.9 F Pulse Rate [Right Brachial] 87 Pulse Rate 78 Respiratory Rate 22 Blood Pressure [Right Arm] 110/53 Blood Pressure 120/55 O2 Sat by Pulse Oximetry 94 Intake and Output: Intake & Output 06/23/20 06/24/20 06/25/20 06/26/20 11:59 11:59 11:59 11:59 Intake Total 501 / 501 3203 / 3203 Output Total 400 / 400 Balance 501 / 501 2803 / 2803 - Physical Exam Oriented: Normal Eyes: Normal Ear: Normal Nose: Normal Throat: Normal Respiratory: Generalized, Diminished, Wheezes Cardiovascular: Normal : Normal Auscultation: Bowel Sounds: Normal Palpation: Normal Tenderness: Normal Skin: Normal Musculoskeletal: Normal Psychiatric: Normal Mood Description: Calm Affect: Normal Speech Pattern: Clear, Appropriate - Laboratory and Diagnostics Result Diagrams: 06/25/20 04:47 06/25/20 04:47 Labs: Laboratory WBC 5.1 X10^3/uL (3.6-10.0) 06/25/20 04:47 RBC 4.62 X10^6/uL (3.5-5.4) 06/25/20 04:47 Hgb 13.1 g/dL (12.0-16.0) 06/25/20 04:47 Hct 38.7 % (36.0-47.0) 06/25/20 04:47 MCV 83.8 fL (80.0-100.0) 06/25/20 04:47 MCH 28.4 pg (27.0-34.0) 06/25/20 04:47 MCHC 33.9 g/dL (33.0-35.0) 06/25/20 04:47 RDW 13.0 % (11.6-16.5) 06/25/20 04:47 Plt Count 172 X10^3/uL (150.0-450.0) 06/25/20 04:47 MPV 8.0 fL (7.4-11.0) 06/25/20 04:47 Neut % (Auto) 87.4 % (42.0-75.0) H 06/25/20 04:47 Lymph % (Auto) 9.6 % (21.0-51.0) L 06/25/20 04:47 Dewey % (Auto) 2.9 % (0.0-13.0) 06/25/20 04:47 Eos % (Auto) 0.1 % (0.9-2.9) L 06/25/20 04:47 Baso % (Auto) 0 % (0.2-1.0) L 06/25/20 04:47 Neut # (Auto) 4.5 x10^3/uL (2.2-4.8) 06/25/20 04:47 Lymph # (Auto) 0.5 X10^3/uL (1.3-2.9) L 06/25/20 04:47 [place]wey # (Auto) 0.1 x10^3/uL (0.3-0.8) L 06/25/20 04:47 Eos # (Auto) 0.0 x10^3/uL (0.0-0.2) 06/25/20 04:47 Baso # (Auto) 0.0 X10^3/uL (0.0-0.1) 06/25/20 04:47 Absolute Nucleated RBC 0.1 /100WBC 06/25/20 04:47 Sample Site Rr 06/25/20 05:00 ABG pH 7.400 (7.35-7.45) 06/25/20 05:00 ABG pCO2 40.0 mmHg (35.0-45.0) 06/25/20 05:00 ABG pO2 57.0 mmHg (80.0-100.0) L 06/25/20 05:00 ABG HCO3 24.8 mmol/L (22-26) 06/25/20 05:00 ABG O2 Saturation 89.0 % (90-100) L 06/25/20 05:00 ABG Base Excess 0.0 mmol/L (-2.0-2.0) 06/25/20 05:00 Luis F Test Pos 06/25/20 05:00 A-a Gradient 150.0 mmHg 06/25/20 05:00 FiO2 36.0 06/25/20 05:00 Blood Gas Comments Ghislaine well sw 06/25/20 05:00 Sodium 139 mmol/L (136-145) 06/25/20 04:47 Corrected Sodium 142 mmol/L (136-145) 06/25/20 04:47 Potassium 4.0 mmol/L (3.5-5.1) 06/25/20 04:47 Chloride 105 mmol/L (98-107) 06/25/20 04:47 Carbon Dioxide 23.9 mmol/L (21-32) 06/25/20 04:47 BUN 8 mg/dL (7-18) 06/25/20 04:47 Creatinine 0.54 mg/dL (0.55-1.02) L 06/25/20 04:47 Est GFR (MDRD) Af Amer > 60 (>60) 06/25/20 04:47 Est GFR (MDRD) Non-Af > 60 (>60) 06/25/20 04:47 Glucose 219 mg/dL (65-99) H 06/25/20 04:47 Calcium 8.3 mg/dL (8.5-10.1) L 06/25/20 04:47 Corrected Calcium 9.4 mg/dL (8.5-10.1) 06/25/20 04:47 Magnesium 2.3 mg/dL (1.7-2.9) 06/25/20 04:47 Ferritin 609 ng/mL (8-252) H 06/25/20 04:47 Total Bilirubin 0.60 mg/dL (0.2-1.0) 06/25/20 04:47 AST 38 Units/L (15-37) H 06/25/20 04:47 ALT 23 Units/L (12-78) 06/25/20 04:47 Alkaline Phosphatase 57 Units/L (46-116) 06/25/20 04:47 Troponin I < 0.02 ng/mL (0-1.5) 06/23/20 18:57 C-Reactive Protein 108.40 mg/L (0-3.0) H 06/25/20 04:47 Total Protein 6.8 g/dL (6.4-8.2) 06/25/20 04:47 Albumin 2.6 g/dL (3.4-5.0) L 06/25/20 04:47 Globulin 4.2 g/dL (2.5-4.5) 06/25/20 04:47 Albumin/Globulin Ratio 0.6 Ratio (1.1-2.1) L 06/25/20 04:47 SARS-CoV-2 (PCR) Positive (NEGATIVE) A 06/25/20 14:55 Blood Type A POSITIVE 06/25/20 11:00 - Plan (1) Pneumonia Status: Acute Qualifiers: Pneumonia type: due to unspecified organism Laterality: left Lung location: lower lobe of lung Qualified Code(s): J18.9 - Pneumonia, unspecified organism Plan: NS AT KVO, REMDESIVIR 100MG IV DAILY, SOLU-MEDROL 80MG IV Q8H, LOVENOX 30MG SC BID, DUONEBS TID, PULMICORT NEBS BID, THE POTASSIUM AND MAGNESIUM PROTOCOL, ASCORBIC ACID 1500MG IV Q6H, VITAMIN A DAILY, ZINC 220MG PO BID, AND A ZOFRAN COCKTAIL, PLASMA WHEN AVAILABLE (2) Suspected COVID-19 virus infection Status: Acute
[2020-06-25] MEDS: NS 1000 ML 1,000 ML IV SCH (19:43)
[2020-06-25] MEDS: SNACK - Diabetic Appropriate PO SCH (19:45)
[2020-06-25] MEDS ORDERED: SNACK - Diabetic Appropriate PO SCH (20:00)
[2020-06-25] MEDS: CRESTOR TAB 10 MG PO SCH (21:14)
[2020-06-26] MEDS: ASCORBIC ACID INJ MULTI-DOSE VIAL 1,500 MG in NS 100 ML IV 100 ML IV SCH ×4 (02:46→21:45)
[2020-06-26 04:24] LABS: ABG BASE EXCESS 3.9 mmol/L (-2.0-2.0); ABG HCO3 28.5 mmol/L (22-26)
[2020-06-26 04:25] LABS: ABG ALLEN TEST POS
[2020-06-26] MEDS: DUONEB 0.5 MG/3 MG (3 mL) NEB SCH ×3 (05:38→21:25)
--- NOTE | 2020-06-26 05:59 | RAD ---
HISTORYSOBSTUDYCHEST, 1 [id number]/17/2020TECHNIQUEAP view of the chestFINDINGSCardiac silhouette is stably enlarged. Mild worsening in bilateral scattered airspace and interstitial opacities. No pleural effusion or pneumothorax.IMPRESSIONMild worsening bilateral infiltrates.Electronically signed by: Donal Starks (Jun 26, 2020 05:59:15)
[2020-06-26] MEDS: TESSALON PERLES PO SCH ×3 (06:01→21:00)
[2020-06-26] MEDS: SOLU-Medrol 40 MG VIAL IVP SCH ×3 (06:01→20:58)
[2020-06-26] MEDS: HumuLIN R SUBCUT PRN ×4 (06:02→20:52)
[2020-06-26 06:03] LABS: BASOPHILS % (AUTO) 0.2 % (0.2-1.0); HEMATOCRIT 37.8 % (36.0-47.0); HEMOGLOBIN 12.9 g/dL (12.0-16.0); LYMPHOCYTES # (AUTO) 0.7 X10^3/uL (1.3-2.9); LYMPHOCYTES % (AUTO) 6.5 % (21.0-51.0); MEAN CORPUSCULAR HEMOGLOBIN 28.4 pg (27.0-34.0); MEAN CORPUSCULAR HGB CONC 34.2 g/dL (33.0-35.0); MEAN CORPUSCULAR VOLUME 83.2 fL (80.0-100.0); MEAN PLATELET VOLUME 7.8 fL (7.4-11.0); MONOCYTES # (AUTO) 0.4 x10^3/uL (0.3-0.8); MONOCYTES % (AUTO) 3.6 % (0.0-13.0); NEUTROPHILS % (AUTO) 89.7 % (42.0-75.0); PLATELET COUNT 229 X10^3/uL (150.0-450.0); RED BLOOD COUNT 4.54 X10^6/uL (3.5-5.4); RED CELL DISTRIBUTION WIDTH 12.9 % (11.6-16.5)
[2020-06-26 06:26] LABS: ALANINE AMINOTRANSFERASE 19 Units/L (12-78); ALBUMIN 2.5 g/dL (3.4-5.0); ALKALINE PHOSPHATASE 56 Units/L (46-116); ASPARTATE AMINO TRANSFERASE 32 Units/L (15-37); BLOOD UREA NITROGEN 10 mg/dL (7-18); CALCIUM 8.5 mg/dL (8.5-10.1); CARBON DIOXIDE 25.9 mmol/L (21-32); CHLORIDE 106 mmol/L (98-107); COR CA(FOR HYPOALB) 9.7 mg/dL (8.5-10.1); COR NA(FOR HYPERGLY) 146 mmol/L (136-145); CREATININE 0.72 mg/dL (0.55-1.02); SODIUM 142 mmol/L (136-145); TOTAL PROTEIN 6.4 g/dL (6.4-8.2); eGFR NON BLACK RACES > 60 (>60)
[2020-06-26] MEDS: ELIQUIS PO SCH ×2 (08:29→21:54)
[2020-06-26] MEDS: FLONASE NASAL SPRAY ENOSTRIL SCH ×2 (08:30→21:50)
[2020-06-26] MEDS: JANUVIA PO SCH (08:31)
[2020-06-26] MEDS: ZINC SULFATE PO SCH ×2 (08:31→21:55)
[2020-06-26] MEDS: VITAMIN D3 125 mcg (5,000 UNITS) PO SCH (08:31)
[2020-06-26] MEDS: VITAMIN A PO SCH (08:32)
[2020-06-26] MEDS: SINGULAIR TAB 10 MG PO SCH (08:32)
[2020-06-26] MEDS ORDERED: LOVENOX INJ 30 MG SYR SC SCH (09:00)
[2020-06-26] MEDS: NEBIVOLOL 2.5 MG PO SCH (09:29)
[2020-06-26] MEDS: REMDESIVIR (INVESTIGATIONAL DRUG GS-5734) 100 MG in NS 250 ML IV 250 ML IV SCH (09:30)
[2020-06-26] MEDS: PULMICORT NEB TX 0.5 MG NEB SCH ×2 (09:50→21:25)
[2020-06-26] MEDS: TUSSIONEX PENNKINETIC SUSP PO SCH ×2 (11:32→23:06)
[2020-06-26] MEDS: TYLENOL 325 MG TAB PO PRN (11:36)
[2020-06-26] MEDS ORDERED: BENADRYL INJ 50 MG VIAL IVP ONE (16:35)
[2020-06-26] MEDS ORDERED: TYLENOL 325 MG TAB PO ONE ×2 (16:39→16:41)
[2020-06-26] MEDS ORDERED: BENADRYL INJ 50 MG VIAL ONE (16:41)
[2020-06-26] MEDS: NS 1000 ML 1,000 ML IV SCH (19:25)
[2020-06-26] MEDS: CRESTOR TAB 10 MG PO SCH (20:46)
[2020-06-26] MEDS: SNACK - Diabetic Appropriate PO SCH (22:33)
[2020-06-27] MEDS: ASCORBIC ACID INJ MULTI-DOSE VIAL 1,500 MG in NS 100 ML IV 100 ML IV SCH ×4 (03:31→21:00)
[2020-06-27 05:03] LABS: BASOPHILS % (AUTO) 0.1 % (0.2-1.0); HEMATOCRIT 37.2 % (36.0-47.0); HEMOGLOBIN 12.5 g/dL (12.0-16.0); LYMPHOCYTES # (AUTO) 0.5 X10^3/uL (1.3-2.9); LYMPHOCYTES % (AUTO) 4.1 % (21.0-51.0); MEAN CORPUSCULAR HEMOGLOBIN 28.4 pg (27.0-34.0); MEAN CORPUSCULAR HGB CONC 33.7 g/dL (33.0-35.0); MEAN CORPUSCULAR VOLUME 84.1 fL (80.0-100.0); MEAN PLATELET VOLUME 8.2 fL (7.4-11.0); MONOCYTES # (AUTO) 0.5 x10^3/uL (0.3-0.8); MONOCYTES % (AUTO) 3.9 % (0.0-13.0); NEUTROPHILS # (AUTO) 11.2 x10^3/uL (2.2-4.8); NEUTROPHILS % (AUTO) 91.9 % (42.0-75.0); PLATELET COUNT 265 X10^3/uL (150.0-450.0); RED BLOOD COUNT 4.42 X10^6/uL (3.5-5.4); RED CELL DISTRIBUTION WIDTH 13.2 % (11.6-16.5); WHITE BLOOD COUNT 12.1 X10^3/uL (3.6-10.0)
[2020-06-27 05:22] LABS: ALANINE AMINOTRANSFERASE 20 Units/L (12-78); ALBUMIN 2.4 g/dL (3.4-5.0); ALKALINE PHOSPHATASE 58 Units/L (46-116); ASPARTATE AMINO TRANSFERASE 41 Units/L (15-37); BLOOD UREA NITROGEN 16 mg/dL (7-18); CALCIUM 8.2 mg/dL (8.5-10.1); CARBON DIOXIDE 28.6 mmol/L (21-32); CHLORIDE 108 mmol/L (98-107); COR CA(FOR HYPOALB) 9.5 mg/dL (8.5-10.1); COR NA(FOR HYPERGLY) 148 mmol/L (136-145); CREATININE 0.75 mg/dL (0.55-1.02); SODIUM 144 mmol/L (136-145); eGFR NON BLACK RACES > 60 (>60)
[2020-06-27] MEDS: TESSALON PERLES PO SCH ×2 (05:50→17:56)
[2020-06-27] MEDS: SOLU-Medrol 40 MG VIAL IVP SCH ×3 (05:50→22:00)
[2020-06-27 05:56] LABS: BAND NEUTROPHILS % 3 % (0-10); PLATELET MORPHOLOGY COMMENT NORMAL (NORMAL)
--- NOTE | 2020-06-27 06:12 | RAD ---
HISTORYShortness of breathSTUDYChest AP [id number]/18/2020FINDINGSThe heart remains enlarged. No definite congestive heart failure is noted. Bilateral interstitial patchy alveolar and some confluent alveolar infiltrates are again identified and are more prominent than on the prior examination even considering a difference in film technique. No pleural effusions are identified. Bony thorax is unremarkable.IMPRESSIONNo change cardiomegaly without congestive heart failureIncreasing bilateral interstitial, patchy alveolar and confluent alveolar infiltrates when compared with the prior examinationElectronically signed by: DUNIA KNIGHT (Jun 27, 2020 06:11:22)
[2020-06-27] MEDS: DUONEB 0.5 MG/3 MG (3 mL) NEB SCH ×3 (06:15→20:32)
[2020-06-27] MEDS: HumuLIN R SUBCUT PRN ×3 (06:27→21:00)
[2020-06-27 06:57] LABS: ABG BASE EXCESS 6.3 mmol/L (-2.0-2.0)
[2020-06-27 06:58] LABS: ABG ALLEN TEST POS; ABG HCO3 32.7 mmol/L (22-26)
--- NOTE | 2020-06-27 08:28 | PCM.PROG ---
Progress Note - Progress Note for Day of Date of Exam: 06/26/20 - Subjective Subjective: IS BEING TREATED FOR PNEUMONIA DUE TO SUSPECTED COVID- 19. TODAY, SHE IS ALERT AND ORIENTED, LYING IN BED ON MORNING ROUNDS. SHE CONTINUES WITH COMPLAINTS OF COUGH, SHORNTESS OF BREATH, WEAKNESS, AND BODY ACHES. SHE DENIES SIGNIFICANT IMPROVEMENT IN SYMPTOMS SINCE YESTERDAY. ON EX AMINATION, HEART IS REGULAR IN RATE AND RHYTHM. BILATERAL LUNGS ARE NOTED WITH SCATTERED WHEEZING THROUGHOUT. ABDOMEN IS ROUND, SOFT, AND NON-TENDER WITH NORMAL BOWEL SOUNDS NOTED IN ALL QUADRANTS. HER VITALS THIS MORNING ARE: 98.1-77-20-92%NC-117/62. LABS WERE OBTAINED. ABNORMAL LAB VALUES INCLUDE THE FOLLOWING: GLUCOSE 271, FERRITIN 781, CRP 32.30, ALBUMIN 2.5. AN ABG WAS OBTAINED AND REVEALED: PH 7.390, PC02 54, P02 56, HC03 32.7, 02 SAT 88, BASE EXCESS 6.3, FIO2 100. A CHEST XRAY WAS OBTAINED AND REVEALED: No change cardiomegaly without congestive heart failure. Increasing bilateral inters titial, patchy alveolar and confluent alveolar infiltrates when compared with the prior examination. SHE IS CURRENTLY RECEIVING NS AT [facility], REMDESIVIR 100MG IV DAILY, SOLU-MEDROL 80MG IV Q8H, LOVENOX 30MG SC BID, DUONEBS TID, PULMICORT NEBS BID, THE POTASSIUM AND MAGNESIUM PROTOCOL, ASCORBIC ACID 1500MG IV Q6H, VITAMIN A DAILY, ZINC 220MG PO BID, AND A ZOFRAN COCKTAIL. WE HAVE ORDERED A UNIT OF CON [facility]ES[facility] PLASMA AND WILL TRANSFUSE WHEN IT IS AVAILABLE. OTHERWISE, WE PLAN TO FOLLOW UP WITH AM LABS, CHEST XRAY, AND ABG AND CONTINUE TO MONITOR. - Past Medical Family Social History Past Med/Fam/Surg Hx: No changes since H&P Allergies: Allergies Sulfa (Sulfonamide Antibiotics) [SULFA] Allergy (Verified 06/23/20 12:40) - Review of Systems ROS: No change since H&P - Vital Signs and I&O's Vital Signs: Temperature 98.4 F Pulse Rate [Right Brachial] 71 Pulse Rate 77 Respiratory Rate 24 Blood Pressure [Right Arm] 125/60 Blood Pressure 120/55 O2 Sat by Pulse Oximetry 97 Intake and Output: Intake & Output 08/16/06/25/20 06/26/20 06/27/20 11:59 11:59 11:59 11:59 Intake Total 501 / 501 3203 / 3203 3439 / 3439 2814 / 2814 Output Total 400 / 400 Balance 501 / 501 2803 / 2803 3439 / 3439 2814 / 2814 - Physical Exam Oriented: Normal Eyes: Normal Ear: Normal Nose: Normal Throat: Normal Respiratory: Generalized, Diminished, Wheezes Cardiovascular: Normal : Normal Auscultation: Bowel Sounds: Normal Tenderness: Normal Skin: Normal Musculoskeletal: Normal Psychiatric: Normal Mood Description: Calm Affect: Normal Speech Pattern: Clear, Appropriate - Laboratory and Diagnostics Result Diagrams: 06/27/20 04:31 06/27/20 04:31 Labs: Laboratory WBC 12.1 X10^3/uL (3.6-10.0) H 06/27/20 04:31 RBC 4.42 X10^6/uL (3.5-5.4) 06/27/20 04:31 Hgb 12.5 g/dL (12.0-16.0) 06/27/20 04:31 Hct 37.2 % (36.0-47.0) 06/27/20 04:31 MCV 84.1 fL (80.0-100.0) 06/27/20 04:31 MCH 28.4 pg (27.0-34.0) 06/27/20 04:31 MCHC 33.7 g/dL (33.0-35.0) 06/27/20 04:31 RDW 13.2 % (11.6-16.5) 06/27/20 04:31 Plt Count 265 X10^3/uL (150.0-450.0) 06/27/20 04:31 Plt Count Comment Adequate (ADEQUATE) 06/27/20 04:31 MPV 8.2 fL (7.4-11.0) 06/27/20 04:31 Neut % (Auto) 91.9 % (42.0-75.0) H 06/27/20 04:31 Lymph % (Auto) 4.1 % (21.0-51.0) L 06/27/20 04:31 [place] % (Auto) 3.9 % (0.0-13.0) 06/27/20 04:31 Eos % (Auto) 0.0 % (0.9-2.9) L 06/27/20 04:31 Baso % (Auto) 0.1 % (0.2-1.0) L 06/27/20 04:31 Neut # (Auto) 11.2 x10^3/uL (2.2-4.8) H 06/27/20 04:31 Lymph # (Auto) 0.5 X10^3/uL (1.3-2.9) L 06/27/20 04:31 [place] # (Auto) 0.5 x10^3/uL (0.3-0.8) 06/27/20 04:31 Eos # (Auto) 0.0 x10^3/uL (0.0-0.2) 06/27/20 04:31 Baso # (Auto) 0.0 X10^3/uL (0.0-0.1) 06/27/20 04:31 Absolute Nucleated RBC 0.0 /100WBC 06/27/20 04:31 Total Counted 100 06/27/20 04:31 Neutrophils % (Manual) 86 % (39-76) H 06/27/20 04:31 Band Neutrophils % 3 % (0-10) 06/27/20 04:31 Lymphocytes % (Manual) 8 % (13-43) L 06/27/20 04:31 Monocytes % (Manual) 3 % (4-9) L 06/27/20 04:31 Plt Morphology Comment Normal (NORMAL) 06/27/20 04:31 RBC Morphology Normal (NORMAL) 06/27/20 04:31 Sample Site Rrad 06/27/20 05:00 ABG pH 7.390 (7.35-7.45) 06/27/20 05:00 ABG pCO2 54.0 mmHg (35.0-45.0) H* 06/27/20 05:00 ABG pO2 56.0 mmHg (80.0-100.0) L 06/27/20 05:00 ABG HCO3 32.7 mmol/L (22-26) H* 06/27/20 05:00 ABG O2 Saturation 88.0 % (90-100) L 06/27/20 05:00 ABG Base Excess 6.3 mmol/L (-2.0-2.0) H 06/27/20 05:00 Luis F Test Pos 06/27/20 05:00 A-a Gradient 590.0 mmHg 06/27/20 05:00 FiO2 100.0 06/27/20 05:00 Blood Gas Comments Ghislaine abg well-mtf 06/27/20 05:00 Sodium 144 mmol/L (136-145) 06/27/20 04:31 Corrected Sodium 148 mmol/L (136-145) H 06/27/20 04:31 Potassium 3.9 mmol/L (3.5-5.1) 06/27/20 04:31 Chloride 108 mmol/L (98-107) H 06/27/20 04:31 Carbon Dioxide 28.6 mmol/L (21-32) 06/27/20 04:31 BUN 16 mg/dL (7-18) 06/27/20 04:31 Creatinine 0.75 mg/dL (0.55-1.02) 06/27/20 04:31 Est GFR (MDRD) Af Amer > 60 (>60) 06/27/20 04:31 Est GFR (MDRD) Non-Af > 60 (>60) 06/27/20 04:31 Glucose 251 mg/dL (65-99) H 06/27/20 04:31 Calcium 8.2 mg/dL (8.5-10.1) L 06/27/20 04:31 Corrected Calcium 9.5 mg/dL (8.5-10.1) 06/27/20 04:31 Magnesium 2.3 mg/dL (1.7-2.9) 06/25/20 04:47 Ferritin 657 ng/mL (8-252) H 06/27/20 04:31 Total Bilirubin 0.50 mg/dL (0.2-1.0) 06/27/20 04:31 AST 41 Units/L (15-37) H 06/27/20 04:31 ALT 20 Units/L (12-78) 06/27/20 04:31 Alkaline Phosphatase 58 Units/L (46-116) 06/27/20 04:31 Troponin I < 0.02 ng/mL (0-1.5) 06/23/20 18:57 C-Reactive Protein 13.30 mg/L (0-3.0) H 06/27/20 04:31 Total Protein 6.0 g/dL (6.4-8.2) L 06/27/20 04:31 Albumin 2.4 g/dL (3.4-5.0) L 06/27/20 04:31 Globulin 3.6 g/dL (2.5-4.5) 06/27/20 04:31 Albumin/Globulin Ratio 0.7 Ratio (1.1-2.1) L 06/27/20 04:31 SARS-CoV-2 (PCR) Positive (NEGATIVE) A 06/25/20 14:55 Blood Type A POSITIVE 06/25/20 11:00 Antibody Screen Cancelled 06/25/20 11:00 - Plan (1) Pneumonia Status: Acute Qualifiers: Pneumonia type: due to unspecified organism Laterality: left Lung location: lower lobe of lung Qualified Code(s): J18.9 - Pneumonia, unspecified organism Plan: NS AT [facility], REMDESIVIR 100MG IV DAILY, SOLU-MEDROL 80MG IV Q8H, LOVENOX 30MG SC BID, DUONEBS TID, PULMICORT NEBS BID, THE POTASSIUM AND MAGNESIUM PROTOCOL, ASCORBIC ACID 1500MG IV Q6H, VITAMIN A DAILY, ZINC 220MG PO BID, AND A ZOFRAN COCKTAIL, PLASMA WHEN AVAILABLE (2) Suspected COVID-19 virus infection Status: Acute
[2020-06-27] MEDS: NEBIVOLOL 2.5 MG PO SCH (09:00)
[2020-06-27] MEDS: SINGULAIR TAB 10 MG PO SCH (09:00)
[2020-06-27] MEDS: ZINC SULFATE PO SCH (09:00)
[2020-06-27] MEDS: JANUVIA PO SCH (09:00)
[2020-06-27] MEDS: VITAMIN D3 125 mcg (5,000 UNITS) PO SCH (09:00)
[2020-06-27] MEDS: FLONASE NASAL SPRAY ENOSTRIL SCH ×2 (09:00→21:00)
[2020-06-27] MEDS: VITAMIN A PO SCH (09:00)
[2020-06-27] MEDS: REMDESIVIR (INVESTIGATIONAL DRUG GS-5734) 100 MG in NS 250 ML IV 250 ML IV SCH (09:00)
[2020-06-27] MEDS: ELIQUIS PO SCH (09:00)
[2020-06-27] MEDS: PULMICORT NEB TX 0.5 MG NEB SCH ×2 (09:05→20:32)
--- NOTE | 2020-06-27 11:57 | PCM.PROG ---
Progress Note - Progress Note for Day of Date of Exam: 06/27/20 - Subjective Subjective: IS BEING TREATED FOR PNEUMONIA DUE TO SUSPECTED COVID- 19. TODAY, SHE IS ALERT AND ORIENTED, LYING IN BED ON MORNING ROUNDS. SHE CONTINUES WITH COMPLAINTS OF COUGH, SHORNTESS OF BREATH, WEAKNESS, AND BODY ACHES. SHE REPORTS INCREASE OF SHORTNESS OF BREATH LAST NIGHT AND THIS MORNING. OXYGEN WAS INCREASED THROUGHOUT THE NIGHT. ON EXAMINATION, HEART IS REGULAR IN RATE AND RHYTHM. BILATERAL LUNGS ARE NOTED WITH SCATTERED WHEEZING THROUGHOUT. ABDOMEN IS ROUND, SOFT, AND NON-TENDER WITH NORMAL BOWEL SOUNDS NOTED IN ALL QUADRANTS. HER VITALS THIS MORNING ARE: 98.4-77-22-94%NRB-128/68. LABS WERE OBTAINED. ABNORMAL LAB VALUES INCLUDE THE FOLLOWING: WBC 12.1, CHLORIDE 108, GLUCOSE 251, CALCIUM 8.2, FERRITIN 657, AST 41, CRP 13.30, TOTAL PROTEIN 6.0, ALBUMIN 2.4. AN ABG WAS OBTAINED AND REVEALED: PH 7.390, PC02 54.0, P02 56, HC03 32.7, 02 SAT 88.0, BASE EXCESS 6.3, FI02 100. A CHEST XRAY WAS OBTAINED AND REVEALED: No change cardiomegaly without congestive heart failure. Increasing bilateral interstitial, patchy alveolar and confluent alveolar infiltrates when compared with the prior examination. SHE IS CURRENTLY RECEIVING NS AT [facility], REMDESIVIR 100MG IV DAILY, SOLU-MEDROL 80MG IV Q8H, LOVENOX 30MG SC BID, DUONEBS TID, PULMICORT NEBS BID, THE POTASSIUM AND MAGNESIUM PROTOCOL, ASCORBIC ACID 1500MG IV Q6H, VITAMIN A DAILY, ZINC 220MG PO BID, AND A ZOFRAN COCKTAIL. WE HAVE ORDERED A UNIT OF [facility] PLASMA AND WILL TRANSFUSE WHEN IT IS AVAILABLE. OTHERWISE, WE PLAN TO FOLLOW UP WITH AM LABS, CHEST XRAY, AND ABG AND CONTINUE TO MONITOR. - Past Medical Family Social History Past Med/Fam/Surg Hx: No changes since H&P Allergies: Allergies Sulfa (Sulfonamide Antibiotics) [SULFA] Allergy (Verified 06/23/20 12:40) - Review of Systems ROS: No change since H&P - Vital Signs and I&O's Vital Signs: Temperature 98.4 F Pulse Rate [Right Brachial] 71 Pulse Rate 77 Respiratory Rate 24 Blood Pressure [Right Arm] 125/60 Blood Pressure 120/55 O2 Sat by Pulse Oximetry 94 Intake and Output: Intake & Output 06/24/20 06/25/20 06/26/20 06/27/20 11:59 11:59 11:59 11:59 Intake Total 501 / 501 3203 / 3203 3439 / 3439 2814 / 2814 Output Total 400 / 400 Balance 501 / 501 2803 / 2803 3439 / 3439 2814 / 2814 - Physical Exam Oriented: Normal Eyes: Normal Ear: Normal Nose: Normal Throat: Normal Respiratory: Generalized, Diminished, Wheezes Cardiovascular: Normal : Normal Auscultation: Bowel Sounds: Normal Palpation: Normal Tenderness: Normal Skin: Normal Musculoskeletal: Normal Psychiatric: Normal Mood Description: Calm Affect: Normal Speech Pattern: Clear, Appropriate - Laboratory and Diagnostics Result Diagrams: 06/27/20 04:31 06/27/20 04:31 Labs: Laboratory WBC 12.1 X10^3/uL (3.6-10.0) H 06/27/20 04:31 RBC 4.42 X10^6/uL (3.5-5.4) 06/27/20 04:31 Hgb 12.5 g/dL (12.0-16.0) 06/27/20 04:31 Hct 37.2 % (36.0-47.0) 06/27/20 04:31 MCV 84.1 fL (80.0-100.0) 06/27/20 04:31 MCH 28.4 pg (27.0-34.0) 06/27/20 04:31 MCHC 33.7 g/dL (33.0-35.0) 06/27/20 04:31 RDW 13.2 % (11.6-16.5) 06/27/20 04:31 Plt Count 265 X10^3/uL (150.0-450.0) 06/27/20 04:31 Plt Count Comment Adequate (ADEQUATE) 06/27/20 04:31 MPV 8.2 fL (7.4-11.0) 06/27/20 04:31 Neut % (Auto) 91.9 % (42.0-75.0) H 06/27/20 04:31 Lymph % (Auto) 4.1 % (21.0-51.0) L 06/27/20 04:31 [place] % (Auto) 3.9 % (0.0-13.0) 06/27/20 04:31 Eos % (Auto) 0.0 % (0.9-2.9) L 06/27/20 04:31 Baso % (Auto) 0.1 % (0.2-1.0) L 06/27/20 04:31 Neut # (Auto) 11.2 x10^3/uL (2.2-4.8) H 06/27/20 04:31 Lymph # (Auto) 0.5 X10^3/uL (1.3-2.9) L 06/27/20 04:31 [place] # (Auto) 0.5 x10^3/uL (0.3-0.8) 06/27/20 04:31 Eos # (Auto) 0.0 x10^3/uL (0.0-0.2) 06/27/20 04:31 Baso # (Auto) 0.0 X10^3/uL (0.0-0.1) 06/27/20 04:31 Absolute Nucleated RBC 0.0 /100WBC 06/27/20 04:31 Total Counted 100 06/27/20 04:31 Neutrophils % (Manual) 86 % (39-76) H 06/27/20 04:31 Band Neutrophils % 3 % (0-10) 06/27/20 04:31 Lymphocytes % (Manual) 8 % (13-43) L 06/27/20 04:31 Monocytes % (Manual) 3 % (4-9) L 06/27/20 04:31 Plt Morphology Comment Normal (NORMAL) 06/27/20 04:31 RBC Morphology Normal (NORMAL) 06/27/20 04:31 Sample Site Rrad 06/27/20 05:00 ABG pH 7.390 (7.35-7.45) 06/27/20 05:00 ABG pCO2 54.0 mmHg (35.0-45.0) H* 06/27/20 05:00 ABG pO2 56.0 mmHg (80.0-100.0) L 06/27/20 05:00 ABG HCO3 32.7 mmol/L (22-26) H* 06/27/20 05:00 ABG O2 Saturation 88.0 % (90-100) L 06/27/20 05:00 ABG Base Excess 6.3 mmol/L (-2.0-2.0) H 06/27/20 05:00 Luis F Test Pos 06/27/20 05:00 A-a Gradient 590.0 mmHg 06/27/20 05:00 FiO2 100.0 06/27/20 05:00 Blood Gas Comments Ghislaine abg well-mtf 06/27/20 05:00 Sodium 144 mmol/L (136-145) 06/27/20 04:31 Corrected Sodium 148 mmol/L (136-145) H 06/27/20 04:31 Potassium 3.9 mmol/L (3.5-5.1) 06/27/20 04:31 Chloride 108 mmol/L (98-107) H 06/27/20 04:31 Carbon Dioxide 28.6 mmol/L (21-32) 06/27/20 04:31 BUN 16 mg/dL (7-18) 06/27/20 04:31 Creatinine 0.75 mg/dL (0.55-1.02) 06/27/20 04:31 Est GFR (MDRD) Af Amer > 60 (>60) 06/27/20 04:31 Est GFR (MDRD) Non-Af > 60 (>60) 06/27/20 04:31 Glucose 251 mg/dL (65-99) H 06/27/20 04:31 Calcium 8.2 mg/dL (8.5-10.1) L 06/27/20 04:31 Corrected Calcium 9.5 mg/dL (8.5-10.1) 06/27/20 04:31 Magnesium 2.3 mg/dL (1.7-2.9) 06/25/20 04:47 Ferritin 657 ng/mL (8-252) H 06/27/20 04:31 Total Bilirubin 0.50 mg/dL (0.2-1.0) 06/27/20 04:31 AST 41 Units/L (15-37) H 06/27/20 04:31 ALT 20 Units/L (12-78) 06/27/20 04:31 Alkaline Phosphatase 58 Units/L (46-116) 06/27/20 04:31 Troponin I < 0.02 ng/mL (0-1.5) 06/23/20 18:57 C-Reactive Protein 13.30 mg/L (0-3.0) H 06/27/20 04:31 Total Protein 6.0 g/dL (6.4-8.2) L 06/27/20 04:31 Albumin 2.4 g/dL (3.4-5.0) L 06/27/20 04:31 Globulin 3.6 g/dL (2.5-4.5) 06/27/20 04:31 Albumin/Globulin Ratio 0.7 Ratio (1.1-2.1) L 06/27/20 04:31 SARS-CoV-2 (PCR) Positive (NEGATIVE) A 06/25/20 14:55 Blood Type A POSITIVE 06/25/20 11:00 Antibody Screen Cancelled 06/25/20 11:00 - Plan (1) Pneumonia Status: Acute Qualifiers: Pneumonia type: due to unspecified organism Laterality: left Lung location: lower lobe of lung Qualified Code(s): J18.9 - Pneumonia, unspecified organism Plan: NS AT [facility], REMDESIVIR 100MG IV DAILY, SOLU-MEDROL 80MG IV Q8H, LOVENOX 30MG SC BID, DUONEBS TID, PULMICORT NEBS BID, THE POTASSIUM AND MAGNESIUM PROTOCOL, ASCORBIC ACID 1500MG IV Q6H, VITAMIN A DAILY, ZINC 220MG PO BID, AND A ZOFRAN COCKTAIL, PLASMA WHEN AVAILABLE (2) Suspected COVID-19 virus infection Status: Acute
[2020-06-27] MEDS: ZOFRAN INJ 4 MG VIAL 16 MG, ATIVAN INJ 2 MG VIAL 1 MG, DECADRON INJ 10 MG in NS 50 ML I... IV PRN ×2 (13:31→21:00)
[2020-06-27] MEDS ORDERED: ZOFRAN INJ 4 MG VIAL ONE (20:27)
[2020-06-27] MEDS ORDERED: DECADRON INJ PRESERVATIVE-FREE ONE (20:27)
[2020-06-27] MEDS ORDERED: ATIVAN INJ 2 MG VIAL ONE (20:28)
[2020-06-27] MEDS ORDERED: NS 100 ML IV 100 ML IV ONE (20:30)
[2020-06-27] MEDS: NS 1000 ML 1,000 ML IV SCH (21:00)
[2020-06-27] MEDS: SNACK - Diabetic Appropriate PO SCH (23:33)
[2020-06-28] MEDS: TUSSIONEX PENNKINETIC SUSP PO SCH ×3 (01:00→21:00)
[2020-06-28] MEDS: CRESTOR TAB 10 MG PO SCH ×2 (01:00→21:00)
[2020-06-28] MEDS: ELIQUIS PO SCH ×3 (01:00→21:00)
[2020-06-28] MEDS: ZINC SULFATE PO SCH ×3 (01:00→21:00)
[2020-06-28] MEDS: TESSALON PERLES PO SCH ×4 (01:00→21:00)
[2020-06-28 01:41] LABS: BILIRUBIN,URINE NEGATIVE (NEGATIVE); BLOOD/HEMOGLOBIN,URINE NEGATIVE (NEGATIVE); GLUCOSE, URINE NEGATIVE (NEGATIVE); KETONES,URINE NEGATIVE (NEGATIVE); LEUKOCYTE ESTERASE ,URINE NEGATIVE (NEGATIVE); NITRITES,URINE NEGATIVE (NEGATIVE); PROTEIN,URINE 1+ (NEGATIVE); UROBILINOGEN,URINE NORMAL (NORMAL)
[2020-06-28 01:43] LABS: APPEARANCE,URINE CLEAR (CLEAR); COLOR,URINE YELLOW (YELLOW)
[2020-06-28 01:44] LABS: BACTERIA,URINE NEGATIVE /HPF (NEGATIVE); MUCUS,URINE FEW /HPF (NEGATIVE); RBC,URINE NONE SEEN /HPF (0-3); SQUAMOUS EPITHELIAL CELL,UR RARE /HPF (NEGATIVE)
[2020-06-28] MEDS: ASCORBIC ACID INJ MULTI-DOSE VIAL 1,500 MG in NS 100 ML IV 100 ML IV SCH ×4 (03:11→21:00)
--- NOTE | 2020-06-28 05:44 | RAD ---
HISTORYSOBSTUDYCHEST, 1 [id number] trachea is midline. The cardiac silhouette is stable. Improved left lung aeration and worsening right lung field patchy opacity/infiltrates. Right lower lobe air bronchogram increased.. The bony thorax is stable.IMPRESSIONWorsening right lung field airspace opacity/infiltrates.Slight interval improvement in left lung field opacities/infiltrates.Electronically signed by: Ginna Velásquez (Jun 28, 2020 05:42:47)
[2020-06-28 06:06] LABS: ALANINE AMINOTRANSFERASE 19 Units/L (12-78); ALBUMIN 2.2 g/dL (3.4-5.0); ALKALINE PHOSPHATASE 68 Units/L (46-116); ASPARTATE AMINO TRANSFERASE 49 Units/L (15-37); BLOOD UREA NITROGEN 17 mg/dL (7-18); CALCIUM 8.1 mg/dL (8.5-10.1); CARBON DIOXIDE 33.3 mmol/L (21-32); CHLORIDE 105 mmol/L (98-107); COR CA(FOR HYPOALB) 9.5 mg/dL (8.5-10.1); COR NA(FOR HYPERGLY) 147 mmol/L (136-145); CREATININE 0.76 mg/dL (0.55-1.02); SODIUM 143 mmol/L (136-145); TOTAL PROTEIN 5.7 g/dL (6.4-8.2); eGFR NON BLACK RACES > 60 (>60)
[2020-06-28 06:12] LABS: BASOPHILS % (AUTO) 0.1 % (0.2-1.0); HEMATOCRIT 38.5 % (36.0-47.0); HEMOGLOBIN 12.9 g/dL (12.0-16.0); LYMPHOCYTES # (AUTO) 0.5 X10^3/uL (1.3-2.9); LYMPHOCYTES % (AUTO) 4.2 % (21.0-51.0); MEAN CORPUSCULAR HEMOGLOBIN 28.1 pg (27.0-34.0); MEAN CORPUSCULAR HGB CONC 33.4 g/dL (33.0-35.0); MEAN CORPUSCULAR VOLUME 84.1 fL (80.0-100.0); MEAN PLATELET VOLUME 7.7 fL (7.4-11.0); MONOCYTES # (AUTO) 0.4 x10^3/uL (0.3-0.8); MONOCYTES % (AUTO) 3.9 % (0.0-13.0); NEUTROPHILS # (AUTO) 10.5 x10^3/uL (2.2-4.8); NEUTROPHILS % (AUTO) 91.8 % (42.0-75.0); PLATELET COUNT 267 X10^3/uL (150.0-450.0); RED BLOOD COUNT 4.59 X10^6/uL (3.5-5.4); RED CELL DISTRIBUTION WIDTH 12.9 % (11.6-16.5); WHITE BLOOD COUNT 11.4 X10^3/uL (3.6-10.0)
[2020-06-28] MEDS: SOLU-Medrol 40 MG VIAL IVP SCH (06:17)
[2020-06-28] MEDS: HumuLIN R SUBCUT PRN ×4 (06:20→21:00)
[2020-06-28 06:40] LABS: ABG BASE EXCESS 12.7 mmol/L (-2.0-2.0)
[2020-06-28 06:42] LABS: ABG ALLEN TEST POS; ABG HCO3 38.9 mmol/L (22-26)
[2020-06-28] MEDS: DUONEB 0.5 MG/3 MG (3 mL) NEB SCH ×4 (06:45→21:25)
[2020-06-28 07:02] LABS: BAND NEUTROPHILS % 3 % (0-10)
[2020-06-28 07:04] LABS: PLATELET MORPHOLOGY COMMENT NORMAL (NORMAL)
--- NOTE | 2020-06-28 08:36 | PCM.PROG ---
Progress Note - Progress Note for Day of Date of Exam: 06/26/20 - Subjective Subjective: IS BEING TREATED FOR PNEUMONIA DUE TO SUSPECTED COVID- 19. TODAY, SHE IS ALERT AND ORIENTED, LYING IN BED ON MORNING ROUNDS. SHE CONTINUES WITH COMPLAINTS OF COUGH, SHORNTESS OF BREATH, WEAKNESS, AND BODY ACHES. SHE DENIES SIGNIFICANT IMPROVEMENT IN SYMPTOMS SINCE YESTERDAY. ON EX AMINATION, HEART IS REGULAR IN RATE AND RHYTHM. BILATERAL LUNGS ARE NOTED WITH SCATTERED WHEEZING THROUGHOUT. ABDOMEN IS ROUND, SOFT, AND NON-TENDER WITH NORMAL BOWEL SOUNDS NOTED IN ALL QUADRANTS. HER VITALS THIS MORNING ARE: 98.1-77-20-92%NC-117/62. LABS WERE OBTAINED. ABNORMAL LAB VALUES INCLUDE THE FOLLOWING: GLUCOSE 271, FERRITIN 781, TOTAL PROTEIN 32.30, ALBUMIN 2.5. AN ABG WAS OBTAINED AND REVEALED: PH 7.440, PC02 42, P02 59, HC03 28.5, 02 SAT 91, FI02 36.0. A CHEST XRAY WAS OBTAINED AND REVEALED: Mild worsening bilateral infiltrates. SHE IS CURRENTLY RECEIVING NS AT [facility], REMDESIVIR 100MG IV DAILY, SOLU-MEDROL 80MG IV Q8H, LOVENOX 30MG SC BID, DUONEBS TID, PULMICORT NEBS BID, THE POTASSIUM AND MAGNESIUM PROTOCOL, ASCORBIC ACID 1500MG IV Q6H, VITAMIN A DAILY, ZINC 220MG PO BID, AND A ZOFRAN COCKTAIL. WE HAVE ORDERED A UNIT OF [facility] PLASMA AND WILL TRANSFUSE WHEN IT IS AVAILABLE. OTHERWISE, WE PLAN TO FOLLOW UP WITH AM LABS, CHEST XRAY, AND ABG AND CONTINUE TO MONITOR. - Past Medical Family Social History Past Med/Fam/Surg Hx: No changes since H&P Allergies: Allergies Sulfa (Sulfonamide Antibiotics) [SULFA] Allergy (Verified 06/23/20 12:40) - Review of Systems ROS: No change since H&P - Vital Signs and I&O's Vital Signs: Temperature 98.8 F Pulse Rate [Right Brachial] 62 Pulse Rate 64 Respiratory Rate 26 Blood Pressure [Right Arm] 133/63 Blood Pressure 120/55 O2 Sat by Pulse Oximetry 95 Intake and Output: Intake & Output 06/25/20 06/26/20 06/27/20 06/28/20 11:59 11:59 11:59 11:59 Intake Total 3203 / 3203 3439 / 3439 2814 / 2814 1562 / 1562 Output Total 400 / 400 530 / 530 Balance 2803 / 2803 3439 / 3439 2814 / 2814 1032 / 1032 - Physical Exam Oriented: Normal Eyes: Normal Ear: Normal Nose: Normal Throat: Normal Respiratory: Generalized, Diminished, Wheezes Cardiovascular: Normal : Normal Auscultation: Bowel Sounds: Normal Tenderness: Normal Skin: Normal Musculoskeletal: Normal Psychiatric: Normal Mood Description: Calm Affect: Normal Speech Pattern: Clear, Appropriate - Laboratory and Diagnostics Result Diagrams: 06/28/20 04:55 06/28/20 04:55 Labs: Laboratory WBC 11.4 X10^3/uL (3.6-10.0) H 06/28/20 04:55 RBC 4.59 X10^6/uL (3.5-5.4) 06/28/20 04:55 Hgb 12.9 g/dL (12.0-16.0) 06/28/20 04:55 Hct 38.5 % (36.0-47.0) 06/28/20 04:55 MCV 84.1 fL (80.0-100.0) 06/28/20 04:55 MCH 28.1 pg (27.0-34.0) 06/28/20 04:55 MCHC 33.4 g/dL (33.0-35.0) 06/28/20 04:55 RDW 12.9 % (11.6-16.5) 06/28/20 04:55 Plt Count 267 X10^3/uL (150.0-450.0) 06/28/20 04:55 Plt Count Comment Adequate (ADEQUATE) 06/28/20 04:55 MPV 7.7 fL (7.4-11.0) 06/28/20 04:55 Neut % (Auto) 91.8 % (42.0-75.0) H 06/28/20 04:55 Lymph % (Auto) 4.2 % (21.0-51.0) L 06/28/20 04:55 [place] % (Auto) 3.9 % (0.0-13.0) 06/28/20 04:55 Eos % (Auto) 0.0 % (0.9-2.9) L 06/28/20 04:55 Baso % (Auto) 0.1 % (0.2-1.0) L 06/28/20 04:55 Neut # (Auto) 10.5 x10^3/uL (2.2-4.8) H 06/28/20 04:55 Lymph # (Auto) 0.5 X10^3/uL (1.3-2.9) L 06/28/20 04:55 [place] # (Auto) 0.4 x10^3/uL (0.3-0.8) 06/28/20 04:55 Eos # (Auto) 0.0 x10^3/uL (0.0-0.2) 06/28/20 04:55 Baso # (Auto) 0.0 X10^3/uL (0.0-0.1) 06/28/20 04:55 Absolute Nucleated RBC 0.0 /100WBC 06/28/20 04:55 Total Counted 100 06/28/20 04:55 Neutrophils % (Manual) 89 % (39-76) H 06/28/20 04:55 Band Neutrophils % 3 % (0-10) 06/28/20 04:55 Lymphocytes % (Manual) 6 % (13-43) L 06/28/20 04:55 Monocytes % (Manual) 2 % (4-9) L 06/28/20 04:55 Plt Morphology Comment Normal (NORMAL) 06/28/20 04:55 RBC Morphology Normal (NORMAL) 06/28/20 04:55 Sample Site Rrad 06/28/20 06:33 ABG pH 7.450 (7.35-7.45) 06/28/20 06:33 ABG pCO2 56.0 mmHg (35.0-45.0) H* 06/28/20 06:33 ABG pO2 61.0 mmHg (80.0-100.0) L 06/28/20 06:33 ABG HCO3 38.9 mmol/L (22-26) H* 06/28/20 06:33 ABG O2 Saturation 92.0 % (90-100) 06/28/20 06:33 ABG Base Excess 12.7 mmol/L (-2.0-2.0) H 06/28/20 06:33 Luis F Test Pos 06/28/20 06:33 A-a Gradient 582.0 mmHg 06/28/20 06:33 FiO2 100.0 06/28/20 06:33 Blood Gas Comments Ghislaine abg well-mtf 06/28/20 06:33 Sodium 143 mmol/L (136-145) 06/28/20 04:55 Corrected Sodium 147 mmol/L (136-145) H 06/28/20 04:55 Potassium 3.8 mmol/L (3.5-5.1) 06/28/20 04:55 Chloride 105 mmol/L (98-107) 06/28/20 04:55 Carbon Dioxide 33.3 mmol/L (21-32) H 06/28/20 04:55 BUN 17 mg/dL (7-18) 06/28/20 04:55 Creatinine 0.76 mg/dL (0.55-1.02) 06/28/20 04:55 Est GFR (MDRD) Af Amer > 60 (>60) 06/28/20 04:55 Est GFR (MDRD) Non-Af > 60 (>60) 06/28/20 04:55 Glucose 258 mg/dL (65-99) H 06/28/20 04:55 Calcium 8.1 mg/dL (8.5-10.1) L 06/28/20 04:55 Corrected Calcium 9.5 mg/dL (8.5-10.1) 06/28/20 04:55 Magnesium 2.3 mg/dL (1.7-2.9) 06/25/20 04:47 Ferritin 538 ng/mL (8-252) H 06/28/20 04:55 Total Bilirubin 0.80 mg/dL (0.2-1.0) 06/28/20 04:55 AST 49 Units/L (15-37) H 06/28/20 04:55 ALT 19 Units/L (12-78) 06/28/20 04:55 Alkaline Phosphatase 68 Units/L (46-116) 06/28/20 04:55 Troponin I < 0.02 ng/mL (0-1.5) 06/23/20 18:57 C-Reactive Protein 14.60 mg/L (0-3.0) H 06/28/20 04:55 Total Protein 5.7 g/dL (6.4-8.2) L 06/28/20 04:55 Albumin 2.2 g/dL (3.4-5.0) L 06/28/20 04:55 Globulin 3.5 g/dL (2.5-4.5) 06/28/20 04:55 Albumin/Globulin Ratio 0.6 Ratio (1.1-2.1) L 06/28/20 04:55 Specimen Type Clean catch urine 06/28/20 01:20 Urine Color Yellow (YELLOW) 06/28/20 01:20 Urine Appearance Clear (CLEAR) 06/28/20 01:20 Urine pH 5.0 (5.0 - 8.0) 06/28/20 01:20 Ur Specific [place] 1.020 (1.000-1.030) 06/28/20 01:20 Urine Protein 1+ (NEGATIVE) 06/28/20 01:20 Urine Glucose (UA) Negative (NEGATIVE) 06/28/20 01:20 Urine Ketones Negative (NEGATIVE) 06/28/20 01:20 Urine Occult Blood Negative (NEGATIVE) 06/28/20 01:20 Urine Nitrite Negative (NEGATIVE) 06/28/20 01:20 Urine Bilirubin Negative (NEGATIVE) 06/28/20 01:20 Urine Urobilinogen Normal (NORMAL) 06/28/20 01:20 Ur Leukocyte Esterase Negative (NEGATIVE) 06/28/20 01:20 Urine RBC None seen /HPF (0-3) 06/28/20 01:20 Urine WBC 0-2 /HPF (0-5) 06/28/20 01:20 Ur Squamous Epith Cells Rare /HPF (NEGATIVE) 06/28/20 01:20 Urine Bacteria Negative /HPF (NEGATIVE) 06/28/20 01:20 Urine Mucus Few /HPF (NEGATIVE) 06/28/20 01:20 Ur Culture Indicated? No/not indicated 06/28/20 01:20 SARS-CoV-2 (PCR) Positive (NEGATIVE) A 06/25/20 14:55 Blood Type A POSITIVE 06/25/20 11:00 Antibody Screen Cancelled 06/25/20 11:00 - Plan (1) Pneumonia Status: Acute Qualifiers: Pneumonia type: due to unspecified organism Laterality: left Lung location: lower lobe of lung Qualified Code(s): J18.9 - Pneumonia, unspecified organism Plan: NS AT KVO, REMDESIVIR 100MG IV DAILY, SOLU-MEDROL 80MG IV Q8H, LOVENOX 30MG SC BID, DUONEBS TID, PULMICORT NEBS BID, THE POTASSIUM AND MAGNESIUM PROTOCOL, ASCORBIC ACID 1500MG IV Q6H, VITAMIN A DAILY, ZINC 220MG PO BID, AND A ZOFRAN COCKTAIL, PLASMA WHEN AVAILABLE (2) Suspected COVID-19 virus infection Status: Acute
[2020-06-28] MEDS ORDERED: NS 100 ML IV 100 ML IV ONE (09:00)
[2020-06-28] MEDS: SINGULAIR TAB 10 MG PO SCH (09:11)
[2020-06-28] MEDS: JANUVIA PO SCH (09:11)
[2020-06-28] MEDS: REMDESIVIR (INVESTIGATIONAL DRUG GS-5734) 100 MG in NS 250 ML IV 250 ML IV SCH (09:13)
[2020-06-28] MEDS: VITAMIN D3 125 mcg (5,000 UNITS) PO SCH (09:14)
[2020-06-28] MEDS: VITAMIN A PO SCH (09:21)
[2020-06-28] MEDS: PULMICORT NEB TX 0.5 MG NEB SCH ×2 (09:30→21:25)
[2020-06-28] MEDS: FLONASE NASAL SPRAY ENOSTRIL SCH ×2 (10:56→21:00)
[2020-06-28] MEDS: NEBIVOLOL 2.5 MG PO SCH (10:56)
[2020-06-28] MEDS: LEVAQUIN PREMIX IV 750 MG 750 MG/150 ML BAG IV SCH (11:07)
[2020-06-28] MEDS ORDERED: ZOFRAN INJ 4 MG VIAL IVP PRN (12:34)
[2020-06-28] MEDS: MORPHINE SULFATE JET NEB NEB SCH ×3 (12:40→23:16)
[2020-06-28] MEDS: SOLU-Medrol 125 MG VIAL IVP SCH ×2 (13:39→21:00)
[2020-06-28] MEDS: XANAX PO PRN (16:05)
[2020-06-28] MEDS ORDERED: MORPHINE SULFATE JET NEB NEB ONE (17:24)
[2020-06-28] MEDS ORDERED: ZOFRAN INJ 4 MG VIAL ONE (22:58)
[2020-06-28] MEDS ORDERED: ATIVAN INJ 2 MG VIAL ONE (22:59)
[2020-06-28] MEDS ORDERED: DECADRON INJ PRESERVATIVE-FREE ONE (22:59)
[2020-06-29] MEDS: XANAX PO PRN
[2020-06-29] MEDS ORDERED: SALINE 0.9% 3 ML NEB TX ONE ×2 (03:33→09:35)
[2020-06-29] MEDS: NS 1000 ML 1,000 ML IV SCH ×3 (03:45→19:06)
[2020-06-29] MEDS: SNACK - Diabetic Appropriate PO SCH ×2 (03:48→20:00)
[2020-06-29] MEDS: ASCORBIC ACID INJ MULTI-DOSE VIAL 1,500 MG in NS 100 ML IV 100 ML IV SCH ×4 (04:00→21:00)
[2020-06-29] MEDS ORDERED: ASCORBIC ACID INJ MULTI-DOSE VIAL IV ONE (04:10)
[2020-06-29 05:07] LABS: ABG BASE EXCESS 13.2 mmol/L (-2.0-2.0)
[2020-06-29 05:09] LABS: ABG ALLEN TEST POS; ABG HCO3 38.7 mmol/L (22-26)
[2020-06-29] MEDS: MORPHINE SULFATE JET NEB NEB SCH ×4 (05:17→22:00)
[2020-06-29 06:06] LABS: ALANINE AMINOTRANSFERASE 19 Units/L (12-78); ALBUMIN 2.2 g/dL (3.4-5.0); ALKALINE PHOSPHATASE 75 Units/L (46-116); ASPARTATE AMINO TRANSFERASE 49 Units/L (15-37); BLOOD UREA NITROGEN 15 mg/dL (7-18); CALCIUM 8.1 mg/dL (8.5-10.1); CARBON DIOXIDE 35.2 mmol/L (21-32); CHLORIDE 100 mmol/L (98-107); COR CA(FOR HYPOALB) 9.5 mg/dL (8.5-10.1); COR NA(FOR HYPERGLY) 142 mmol/L (136-145); SODIUM 138 mmol/L (136-145); TOTAL PROTEIN 5.8 g/dL (6.4-8.2); eGFR NON BLACK RACES > 60 (>60)
--- NOTE | 2020-06-29 06:09 | RAD ---
HISTORYShortness of breathSTUDYChest AP [id number]/2020FINDINGSThe heart remains enlarged. Bilateral interstitial and confluent alveolar infiltrates are again identified slightly improved when compared with the prior examination. No pleural effusions are identified. Bony thorax is unremarkable. Mild gastric distension is identified.IMPRESSIONNo change cardiomegaly without congestive heart failureSlight improvement in the bilateral interstitial and confluent alveolar infiltrates being followedMild gastric distensionElectronically signed by: DUNIA KNIGHT (Jun 29, 2020 06:08:19)
[2020-06-29 06:10] LABS: BASOPHILS % (AUTO) 0.1 % (0.2-1.0); HEMATOCRIT 37.8 % (36.0-47.0); HEMOGLOBIN 12.9 g/dL (12.0-16.0); LYMPHOCYTES # (AUTO) 0.4 X10^3/uL (1.3-2.9); LYMPHOCYTES % (AUTO) 3.4 % (21.0-51.0); MEAN CORPUSCULAR HEMOGLOBIN 28.1 pg (27.0-34.0); MEAN CORPUSCULAR HGB CONC 34.2 g/dL (33.0-35.0); MEAN CORPUSCULAR VOLUME 82.3 fL (80.0-100.0); MEAN PLATELET VOLUME 7.8 fL (7.4-11.0); MONOCYTES # (AUTO) 0.4 x10^3/uL (0.3-0.8); MONOCYTES % (AUTO) 3.5 % (0.0-13.0); NEUTROPHILS # (AUTO) 10.5 x10^3/uL (2.2-4.8); PLATELET COUNT 242 X10^3/uL (150.0-450.0); RED CELL DISTRIBUTION WIDTH 13.1 % (11.6-16.5); WHITE BLOOD COUNT 11.3 X10^3/uL (3.6-10.0)
[2020-06-29] MEDS: SOLU-Medrol 125 MG VIAL IVP SCH ×3 (06:29→22:00)
[2020-06-29] MEDS: TESSALON PERLES PO SCH ×3 (06:29→22:00)
[2020-06-29] MEDS: HumuLIN R SUBCUT PRN ×3 (06:33→16:54)
[2020-06-29 07:44] LABS: BAND NEUTROPHILS % 4 % (0-10); PLATELET MORPHOLOGY COMMENT NORMAL (NORMAL)
[2020-06-29] MEDS: LEVAQUIN PREMIX IV 750 MG 750 MG/150 ML BAG IV SCH (08:05)
--- NOTE | 2020-06-29 08:11 | PCM.PROG ---
Progress Note - Progress Note for Day of Date of Exam: 06/28/20 - Subjective Subjective: IS BEING TREATED FOR PNEUMONIA DUE TO SUSPECTED COVID- 19 AND RESPIRATORY DISTRESS. TODAY, SHE IS ALERT AND ORIENTED, LYING IN BED ON MORNING ROUNDS. SHE CONTINUES WITH COMPLAINTS OF COUGH, SHORNTESS OF BREATH, WEAKNESS, AND BODY ACHES. SHE CONTINUES TO REPORT INCREASE IN SHORTNESS OF BREATH. SHE WAS PLACED ON THE BIPAP THROUGHOUT THE NIGHT. ON EXAMINATION, HEART IS REGULAR IN RATE AND RHYTHM. BILATERAL LUNGS ARE NOTED WITH SCATTERED WHEEZING THROUGHOUT. ABDOMEN IS ROUND, SOFT, AND NON-TENDER WITH NORMAL BOWEL SOUNDS NOTED IN ALL QUADRANTS. HER VITALS THIS MORNING ARE: 99.3-71-20-98%BIPAP-152/79. LABS WERE OBTAINED. ABNORMAL LAB VALUES INCLUDE THE FOLLOWING: WBC 11.4, CARBON DIOXIDE 33.3, GLUCOSE 258, CALCIUM 8.1, FERRITIN 538, AST 49, CRP 14.60, TOTAL PROTEIN 5.7, ALBUMIN 2.2. AN ABG WAS OBTAINED AND REVEALED: PH 7.450, PC02 56, P02 61, HC03 38.9, 02 SAT 92, FI02 100. A CHEST XRAY WAS OBTAINED AND REVEALED: Worsening right lung field airspace opacity/infiltrates. Slight interval improvement in left lung field opacities/infiltrates. SHE IS CURRENTLY RECEIVING NS AT [facility], REMDESIVIR 100MG IV DAILY, SOLU-MEDROL 80MG IV Q8H, LOVENOX 30MG SC BID, DUONEBS TID, PULMICORT NEBS BID, THE POTASSIUM AND MAGNESIUM PROTOCOL, ASCORBIC ACID 1500MG IV Q6H, VITAMIN A DAILY, ZINC 220MG PO BID, AND A ZOFRAN COCKTAIL. SHE HAS RECEIVED ONE UNIT OF CONVALESCENT PLASMA AND WILL RECEIVE ANOTHER WHEN IT BECOMES AVAILABLE. WE WILL INCREASE SOLU-MEDROL TO 125MG IV Q8H AND ADD MORPHINE 2MG TO NEB TX Q6H. OTHERWISE, WE PLAN TO FOLLOW UP WITH AM LABS, CHEST XRAY, AND ABG AND CONTINUE TO MONITOR. - Past Medical Family Social History Past Med/Fam/Surg Hx: No changes since H&P Allergies: Allergies Sulfa (Sulfonamide Antibiotics) [SULFA] Allergy (Verified 06/23/20 12:40) - Review of Systems ROS: No change since H&P - Vital Signs and I&O's Vital Signs: Temperature 98.6 F Pulse Rate [Right Brachial] 60 Pulse Rate 66 Respiratory Rate 20 Blood Pressure [Right Arm] 138/66 Blood Pressure 120/55 O2 Sat by Pulse Oximetry 97 Intake and Output: Intake & Output 06/26/20 06/27/20 06/28/20 06/29/20 11:59 11:59 11:59 11:59 Intake Total 3439 / 3439 2814 / 2814 1562 / 1562 3007 / 3007 Output Total 530 / 530 850 / 850 Balance 3439 / 3439 2814 / 2814 1032 / 1032 2157 / 2157 - Physical Exam Oriented: Normal Eyes: Normal Ear: Normal Nose: Normal Throat: Normal Respiratory: Generalized, Diminished, Wheezes Cardiovascular: Normal : Normal Auscultation: Bowel Sounds: Normal Palpation: Normal Tenderness: Normal Skin: Normal Musculoskeletal: Normal Psychiatric: Normal Mood Description: Calm Affect: Normal Speech Pattern: Clear, Appropriate - Laboratory and Diagnostics Result Diagrams: 06/29/20 05:10 06/29/20 05:10 Labs: Laboratory WBC 11.3 X10^3/uL (3.6-10.0) H 06/29/20 05:10 RBC 4.60 X10^6/uL (3.5-5.4) 06/29/20 05:10 Hgb 12.9 g/dL (12.0-16.0) 06/29/20 05:10 Hct 37.8 % (36.0-47.0) 06/29/20 05:10 MCV 82.3 fL (80.0-100.0) 06/29/20 05:10 MCH 28.1 pg (27.0-34.0) 06/29/20 05:10 MCHC 34.2 g/dL (33.0-35.0) 06/29/20 05:10 RDW 13.1 % (11.6-16.5) 06/29/20 05:10 Plt Count 242 X10^3/uL (150.0-450.0) 06/29/20 05:10 Plt Count Comment Adequate (ADEQUATE) 06/29/20 05:10 MPV 7.8 fL (7.4-11.0) 06/29/20 05:10 Neut % (Auto) 93.0 % (42.0-75.0) H 06/29/20 05:10 Lymph % (Auto) 3.4 % (21.0-51.0) L 06/29/20 05:10 [place] % (Auto) 3.5 % (0.0-13.0) 06/29/20 05:10 Eos % (Auto) 0.0 % (0.9-2.9) L 06/29/20 05:10 Baso % (Auto) 0.1 % (0.2-1.0) L 06/29/20 05:10 Neut # (Auto) 10.5 x10^3/uL (2.2-4.8) H 06/29/20 05:10 Lymph # (Auto) 0.4 X10^3/uL (1.3-2.9) L 06/29/20 05:10 [place] # (Auto) 0.4 x10^3/uL (0.3-0.8) 06/29/20 05:10 Eos # (Auto) 0.0 x10^3/uL (0.0-0.2) 06/29/20 05:10 Baso # (Auto) 0.0 X10^3/uL (0.0-0.1) 06/29/20 05:10 Absolute Nucleated RBC 0.0 /100WBC 06/29/20 05:10 Total Counted 100 06/29/20 05:10 Neutrophils % (Manual) 85 % (39-76) H 06/29/20 05:10 Band Neutrophils % 4 % (0-10) 06/29/20 05:10 Lymphocytes % (Manual) 3 % (13-43) L 06/29/20 05:10 Monocytes % (Manual) 3 % (4-9) L 06/29/20 05:10 Eosinophils % (Manual) 4 % (0-6) 06/29/20 05:10 Plt Morphology Comment Normal (NORMAL) 06/29/20 05:10 RBC Morphology Normal (NORMAL) 06/29/20 05:10 Sample Site Rr 06/29/20 05:00 ABG pH 7.480 (7.35-7.45) H 06/29/20 05:00 ABG pCO2 52.0 mmHg (35.0-45.0) H* 06/29/20 05:00 ABG pO2 122.0 mmHg (80.0-100.0) H 06/29/20 05:00 ABG HCO3 38.7 mmol/L (22-26) H* 06/29/20 05:00 ABG O2 Saturation 99.0 % (90-100) 06/29/20 05:00 ABG Base Excess 13.2 mmol/L (-2.0-2.0) H 06/29/20 05:00 Luis F Test Pos 06/29/20 05:00 A-a Gradient 526.0 mmHg 06/29/20 05:00 FiO2 100.0 06/29/20 05:00 Blood Gas Comments Ghislaine well ae 06/29/20 05:00 Sodium 138 mmol/L (136-145) 06/29/20 05:10 Corrected Sodium 142 mmol/L (136-145) 06/29/20 05:10 Potassium 3.8 mmol/L (3.5-5.1) 06/29/20 05:10 Chloride 100 mmol/L (98-107) 06/29/20 05:10 Carbon Dioxide 35.2 mmol/L (21-32) H 06/29/20 05:10 BUN 15 mg/dL (7-18) 06/29/20 05:10 Creatinine 0.70 mg/dL (0.55-1.02) 06/29/20 05:10 Est GFR (MDRD) Af Amer > 60 (>60) 06/29/20 05:10 Est GFR (MDRD) Non-Af > 60 (>60) 06/29/20 05:10 Glucose 272 mg/dL (65-99) H 06/29/20 05:10 Calcium 8.1 mg/dL (8.5-10.1) L 06/29/20 05:10 Corrected Calcium 9.5 mg/dL (8.5-10.1) 06/29/20 05:10 Magnesium 2.3 mg/dL (1.7-2.9) 06/25/20 04:47 Ferritin 509 ng/mL (8-252) H 06/29/20 05:10 Total Bilirubin 1.10 mg/dL (0.2-1.0) H 06/29/20 05:10 AST 49 Units/L (15-37) H 06/29/20 05:10 ALT 19 Units/L (12-78) 06/29/20 05:10 Alkaline Phosphatase 75 Units/L (46-116) 06/29/20 05:10 Troponin I < 0.02 ng/mL (0-1.5) 06/23/20 18:57 C-Reactive Protein 15.90 mg/L (0-3.0) H 06/29/20 05:10 Total Protein 5.8 g/dL (6.4-8.2) L 06/29/20 05:10 Albumin 2.2 g/dL (3.4-5.0) L 06/29/20 05:10 Globulin 3.6 g/dL (2.5-4.5) 06/29/20 05:10 Albumin/Globulin Ratio 0.6 Ratio (1.1-2.1) L 06/29/20 05:10 Specimen Type Clean catch urine 06/28/20 01:20 Urine Color Yellow (YELLOW) 06/28/20 01:20 Urine Appearance Clear (CLEAR) 06/28/20 01:20 Urine pH 5.0 (5.0 - 8.0) 06/28/20 01:20 Ur Specific [place] 1.020 (1.000-1.030) 06/28/20 01:20 Urine Protein 1+ (NEGATIVE) 06/28/20 01:20 Urine Glucose (UA) Negative (NEGATIVE) 06/28/20 01:20 Urine Ketones Negative (NEGATIVE) 06/28/20 01:20 Urine Occult Blood Negative (NEGATIVE) 06/28/20 01:20 Urine Nitrite Negative (NEGATIVE) 06/28/20 01:20 Urine Bilirubin Negative (NEGATIVE) 06/28/20 01:20 Urine Urobilinogen Normal (NORMAL) 06/28/20 01:20 Ur Leukocyte Esterase Negative (NEGATIVE) 06/28/20 01:20 Urine RBC None seen /HPF (0-3) 06/28/20 01:20 Urine WBC 0-2 /HPF (0-5) 06/28/20 01:20 Ur Squamous Epith Cells Rare /HPF (NEGATIVE) 06/28/20 01:20 Urine Bacteria Negative /HPF (NEGATIVE) 06/28/20 01:20 Urine Mucus Few /HPF (NEGATIVE) 06/28/20 01:20 Ur Culture Indicated? No/not indicated 06/28/20 01:20 SARS-CoV-2 (PCR) Positive (NEGATIVE) A 06/25/20 14:55 Blood Type A POSITIVE 06/25/20 11:00 Antibody Screen Cancelled 06/25/20 11:00 - Plan (1) Pneumonia Status: Acute Qualifiers: Pneumonia type: due to unspecified organism Laterality: left Lung location: lower lobe of lung Qualified Code(s): J18.9 - Pneumonia, unspecified organism Plan: NS AT [facility], REMDESIVIR 100MG IV DAILY, SOLU-MEDROL 125MG IV Q8H, LOVENOX 30MG SC BID, DUONEBS TID, PULMICORT NEBS BID, THE POTASSIUM AND MAGNESIUM PROTOCOL, ASCORBIC ACID 1500MG IV Q6H, VITAMIN A DAILY, ZINC 220MG PO BID, AND A ZOFRAN COCKTAIL, PLASMA WHEN AVAILABLE (2) Suspected COVID-19 virus infection Status: Acute
[2020-06-29] MEDS: PULMICORT NEB TX 0.5 MG NEB SCH ×2 (08:31→22:00)
[2020-06-29] MEDS: DUONEB 0.5 MG/3 MG (3 mL) NEB SCH ×4 (08:31→22:00)
[2020-06-29] MEDS ORDERED: NS 100 ML IV 100 ML IV ONE (08:52)
[2020-06-29] MEDS ORDERED: MORPHINE SULFATE INJ 2 MG INJ ONE (09:34)
[2020-06-29] MEDS: SALINE 0.9% 3 ML NEB TX NEB PRN (09:38)
[2020-06-29] MEDS: ELIQUIS PO SCH ×2 (09:51→21:00)
[2020-06-29] MEDS: JANUVIA PO SCH (09:52)
[2020-06-29] MEDS: NEBIVOLOL 2.5 MG PO SCH (09:53)
[2020-06-29] MEDS: SINGULAIR TAB 10 MG PO SCH (09:53)
[2020-06-29] MEDS: FLONASE NASAL SPRAY ENOSTRIL SCH ×2 (09:53→21:00)
[2020-06-29] MEDS: VITAMIN D3 125 mcg (5,000 UNITS) PO SCH (09:54)
[2020-06-29] MEDS: TUSSIONEX PENNKINETIC SUSP PO SCH ×2 (09:54→21:00)
[2020-06-29] MEDS: ZINC SULFATE PO SCH ×2 (09:54→21:00)
[2020-06-29] MEDS: VITAMIN A PO SCH (09:55)
[2020-06-29] MEDS ORDERED: SALINE 0.9% 3 ML NEB TX NEB SCH (16:00)
--- NOTE | 2020-06-29 16:55 | DR.UPDATE ---
H&P Update History and Physical Update: History and Physical reviewed and patient examined. Changes noted: NO Yes with the following: H&P Reviewed: Yes Patient was examined?: Yes Procedures (ALL) - Central Line Placement PCM.CLCO: written consent Time out performed: Yes Patient placed pm monitor/pulse ox: Yes prep: mask, gown, gloves, other Centrial line prep: chlorhexidine scrub Local anesthsia used: lidocane 1% Ultrasound used for placement: Yes (right IJ visualized during cannulation) Central line lumen ininserted: triple Post procedure: sutured in place, good blood return, all ports aspirated, flushed,capped, sterile dressing applied Post procedure xray: tip oc catheter in good position, no pneumothorax seen Patient tolerated procedure: Yes Complications: none
--- NOTE | 2020-06-29 16:59 | RAD ---
HISTORYCENTRAL LINE PLACEMENTSTUDYCHEST x-ray, 1 VIEWCOMPARISONX-ray 06/29/2020FINDINGSCentral venous catheter terminates in the right atrium of the heart. No pneumothorax is seen. Diffuse abnormal lung densities are seen, similar to prior study given differences in technique. Appearance is worrisome for atypical pneumonia. Heart is probably normal in size. Possible small left pleural effusion. No pneumothorax is seen.IMPRESSIONCentral venous catheter terminates in the region of the right atrium of the heart. No pneumothorax is seen.Electronically signed by: Giorgi De Paz (Jun 29, 2020 16:58:23)
[2020-06-29] MEDS: COLACE CAP 100 MG PO SCH (21:00)
[2020-06-29] MEDS: CRESTOR TAB 10 MG PO SCH (21:00)
[2020-06-29] MEDS ORDERED: BENADRYL INJ 50 MG VIAL IVP ONE (23:39)
[2020-06-29] MEDS ORDERED: BENADRYL INJ 50 MG VIAL ONE (23:41)
[2020-06-30] MEDS: TYLENOL 325 MG TAB PO PRN (00:17)
[2020-06-30] MEDS: HumuLIN R SUBCUT PRN ×5 (00:27→22:34)
[2020-06-30] MEDS ORDERED: NS 250 ML IV 250 ML IV ONE (01:19)
[2020-06-30] MEDS: ASCORBIC ACID INJ MULTI-DOSE VIAL 1,500 MG in NS 100 ML IV 100 ML IV SCH ×4 (04:00→21:30)
[2020-06-30] MEDS: MORPHINE SULFATE JET NEB NEB SCH ×4 (05:28→21:20)
[2020-06-30] MEDS: SALINE 0.9% 3 ML NEB TX NEB PRN ×2 (05:28→21:20)
[2020-06-30 05:29] LABS: ABG BASE EXCESS 13.5 mmol/L (-2.0-2.0)
[2020-06-30 05:30] LABS: ABG ALLEN TEST POS; ABG HCO3 39.3 mmol/L (22-26)
[2020-06-30 05:49] LABS: BASOPHILS % (AUTO) 0.2 % (0.2-1.0); HEMOGLOBIN 12.7 g/dL (12.0-16.0); LYMPHOCYTES # (AUTO) 0.3 X10^3/uL (1.3-2.9); LYMPHOCYTES % (AUTO) 2.5 % (21.0-51.0); MEAN CORPUSCULAR HEMOGLOBIN 28.4 pg (27.0-34.0); MEAN CORPUSCULAR HGB CONC 34.4 g/dL (33.0-35.0); MEAN CORPUSCULAR VOLUME 82.7 fL (80.0-100.0); MEAN PLATELET VOLUME 7.8 fL (7.4-11.0); MONOCYTES # (AUTO) 0.4 x10^3/uL (0.3-0.8); MONOCYTES % (AUTO) 3.7 % (0.0-13.0); NEUTROPHILS % (AUTO) 93.6 % (42.0-75.0); PLATELET COUNT 227 X10^3/uL (150.0-450.0); RED BLOOD COUNT 4.48 X10^6/uL (3.5-5.4); WHITE BLOOD COUNT 10.7 X10^3/uL (3.6-10.0)
[2020-06-30 06:01] LABS: ALANINE AMINOTRANSFERASE 20 Units/L (12-78); ALBUMIN 2.2 g/dL (3.4-5.0); ALKALINE PHOSPHATASE 74 Units/L (46-116); ASPARTATE AMINO TRANSFERASE 44 Units/L (15-37); BLOOD UREA NITROGEN 14 mg/dL (7-18); CALCIUM 8.1 mg/dL (8.5-10.1); CARBON DIOXIDE 37.6 mmol/L (21-32); CHLORIDE 100 mmol/L (98-107); COR CA(FOR HYPOALB) 9.5 mg/dL (8.5-10.1); COR NA(FOR HYPERGLY) 143 mmol/L (136-145); CREATININE 0.77 mg/dL (0.55-1.02); SODIUM 138 mmol/L (136-145); TOTAL PROTEIN 5.6 g/dL (6.4-8.2); eGFR NON BLACK RACES > 60 (>60)
[2020-06-30] MEDS: SOLU-Medrol 125 MG VIAL IVP SCH ×3 (06:27→22:30)
[2020-06-30] MEDS: TESSALON PERLES PO SCH ×3 (06:28→22:31)
--- NOTE | 2020-06-30 06:43 | RAD ---
HISTORYSOB pneumoniaSTUDYAP [id number] stable cardiac enlargement. Interval increase in diffuse bilateral airspace disease throughout both lungs. Stable position of right IJ line. No large pleural effusion or complicating pneumothorax seen.IMPRESSIONIncreasing bilateral pulmonary infiltrates consistent with multifocal pneumonia. Superimposed element of pulmonary edema may be present.Electronically signed by: RIKA STERLING (Jun 30, 2020 06:42:44)
[2020-06-30 06:55] LABS: BAND NEUTROPHILS % 2 % (0-10)
[2020-06-30 06:56] LABS: PLATELET MORPHOLOGY COMMENT NORMAL (NORMAL)
[2020-06-30] MEDS: FLONASE NASAL SPRAY ENOSTRIL SCH ×2 (08:26→22:32)
[2020-06-30] MEDS ORDERED: ELIQUIS ONE (08:33)
[2020-06-30] MEDS: ELIQUIS PO SCH ×2 (08:58→22:32)
[2020-06-30] MEDS: JANUVIA PO SCH (08:58)
[2020-06-30] MEDS: TUSSIONEX PENNKINETIC SUSP PO SCH ×2 (08:59→21:33)
[2020-06-30] MEDS: MILK OF MAGNESIA PO SCH (08:59)
[2020-06-30] MEDS: NEBIVOLOL 2.5 MG PO SCH (08:59)
[2020-06-30] MEDS: VITAMIN D3 125 mcg (5,000 UNITS) PO SCH (09:00)
[2020-06-30] MEDS: VITAMIN A PO SCH (09:00)
[2020-06-30] MEDS: LEVAQUIN PREMIX IV 750 MG 750 MG/150 ML BAG IV SCH (09:01)
[2020-06-30] MEDS: ZINC SULFATE PO SCH ×2 (09:01→21:33)
[2020-06-30] MEDS ORDERED: SINGULAIR TAB 10 MG ONE (09:03)
[2020-06-30] MEDS: DUONEB 0.5 MG/3 MG (3 mL) NEB SCH ×4 (09:05→21:20)
[2020-06-30] MEDS: PULMICORT NEB TX 0.5 MG NEB SCH ×2 (09:05→21:20)
[2020-06-30] MEDS: SINGULAIR TAB 10 MG PO SCH (09:15)
--- NOTE | 2020-06-30 10:35 | PCM.PROG ---
Progress Note - Progress Note for Day of Date of Exam: 06/29/20 - Subjective Subjective: IS BEING TREATED FOR PNEUMONIA DUE TO SUSPECTED COVID- 19 AND RESPIRATORY DISTRESS. TODAY, SHE IS ALERT AND ORIENTED, LYING IN BED ON MORNING ROUNDS. SHE CONTINUES WITH COMPLAINTS OF COUGH, SHORNTESS OF BREATH, WEAKNESS, AND BODY ACHES. SHE IS CURRENTLY UTILIZING THE BIPAP. SHE REPORTS SLIGHT IMPROVEMENT IN SYMPTOMS TODAY. ON EXAMINATION, HEART IS REGULAR IN RATE AND RHYTHM. BILATERAL LUNGS ARE NOTED WITH SCATTERED WHEEZING THROUGHOUT. ABDOMEN IS ROUND, SOFT, AND NON-TENDER WITH NORMAL BOWEL SOUNDS NOTED IN ALL QUADRANTS. HER VITALS THIS MORNING ARE: 98.1-59-20-92%BIPAP-136/63. LABS WERE OBTAINED. ABNORMAL LAB VALUES INCLUDE THE FOLLOWING: WBC 11.3, CARBON DIOXIDE 35.2, GLUCOSE 272, CALCIUM 8.1, FERRITIN 509, TOTAL BILI 1.10, AST 49, CRP 15.90, TOTAL PROTEIN 15.90, TOTAL PROTEIN 5.8, ALBUMIN 2.2. AN ABG WAS OBTAINED AND REVEALED: PH 7.480, PC02 52, P02 122, HC03 38.7, 02 SAT 99, BASE EXCESS 13.2, FI02 100. A CHEST XRAY WAS OBTAINED AND REVEALED: No change cardiomegaly without congestive heart failure. Slight improvement in the bilateral interstitial and confluent alveolar infiltrates being followed. Mild gastric distension. SHE IS CURRENTLY RECEIVING NS AT O, REMDESIVIR 100MG IV DAILY, SOLU-MEDROL 125MG IV Q8H, LOVENOX 30MG SC BID, DUONEBS TID, PULMICORT NEBS BID, MORPHINE 2MG TO NEB TX Q6H, THE POTASSIUM AND MAGNESIUM PROTOCOL, ASCORBIC ACID 1500MG IV Q6H, VITAMIN A DAILY, ZINC 220MG PO BID, AND A ZOFRAN COCKTAIL. SHE HAS RECEIVED ONE UNIT OF CONVALESCENT PLASMA AND WILL RECEIVE ANOTHER WHEN IT BECOMES AVAILABLE. WE WILL CONTINUE WITH CURRENT PLAN OF CARE TODAY. OTHERWISE, WE PLAN TO FOLLOW UP WITH AM LABS, CHEST XRAY, AND ABG AND CONTINUE TO MONITOR. - Past Medical Family Social History Past Med/Fam/Surg Hx: No changes since H&P Allergies: Allergies Sulfa (Sulfonamide Antibiotics) [SULFA] Allergy (Verified 06/23/20 12:40) - Review of Systems ROS: No change since H&P - Vital Signs and I&O's Vital Signs: Temperature 97.7 F Pulse Rate [Right Brachial] 58 Pulse Rate 72 Respiratory Rate 17 Blood Pressure [Right Arm] 137/71 Blood Pressure 120/55 O2 Sat by Pulse Oximetry 96 Intake and Output: Intake & Output 06/27/20 06/28/20 06/29/20 06/30/20 11:59 11:59 11:59 11:59 Intake Total 2814 / 2814 1562 / 1562 3007 / 3007 2259 / 2259 Output Total 530 / 530 850 / 850 2450 / 2450 Balance 2814 / 2814 1032 / 1032 2157 / 2157 -191 / -191 - Physical Exam Oriented: Normal Eyes: Normal Ear: Normal Nose: Normal Throat: Normal Respiratory: Generalized, Diminished, Wheezes Cardiovascular: Normal : Normal Auscultation: Bowel Sounds: Normal Tenderness: Normal Skin: Normal Musculoskeletal: Normal Psychiatric: Normal Mood Description: Calm Affect: Normal Speech Pattern: Clear, Appropriate - Laboratory and Diagnostics Result Diagrams: 06/30/20 04:50 06/30/20 04:50 Labs: Laboratory WBC 10.7 X10^3/uL (3.6-10.0) H 06/30/20 04:50 RBC 4.48 X10^6/uL (3.5-5.4) 06/30/20 04:50 Hgb 12.7 g/dL (12.0-16.0) 06/30/20 04:50 Hct 37.0 % (36.0-47.0) 06/30/20 04:50 MCV 82.7 fL (80.0-100.0) 06/30/20 04:50 MCH 28.4 pg (27.0-34.0) 06/30/20 04:50 MCHC 34.4 g/dL (33.0-35.0) 06/30/20 04:50 RDW 13.0 % (11.6-16.5) 06/30/20 04:50 Plt Count 227 X10^3/uL (150.0-450.0) 06/30/20 04:50 Plt Count Comment Adequate (ADEQUATE) 06/30/20 04:50 MPV 7.8 fL (7.4-11.0) 06/30/20 04:50 Neut % (Auto) 93.6 % (42.0-75.0) H 06/30/20 04:50 Lymph % (Auto) 2.5 % (21.0-51.0) L 06/30/20 04:50 [place] % (Auto) 3.7 % (0.0-13.0) 06/30/20 04:50 Eos % (Auto) 0.0 % (0.9-2.9) L 06/30/20 04:50 Baso % (Auto) 0.2 % (0.2-1.0) 06/30/20 04:50 Neut # (Auto) 10.0 x10^3/uL (2.2-4.8) H 06/30/20 04:50 Lymph # (Auto) 0.3 X10^3/uL (1.3-2.9) L 06/30/20 04:50 [place] # (Auto) 0.4 x10^3/uL (0.3-0.8) 06/30/20 04:50 Eos # (Auto) 0.0 x10^3/uL (0.0-0.2) 06/30/20 04:50 Baso # (Auto) 0.0 X10^3/uL (0.0-0.1) 06/30/20 04:50 Absolute Nucleated RBC 0.0 /100WBC 06/30/20 04:50 Total Counted 100 06/30/20 04:50 Neutrophils % (Manual) 87 % (39-76) H 06/30/20 04:50 Band Neutrophils % 2 % (0-10) 06/30/20 04:50 Lymphocytes % (Manual) 4 % (13-43) L 06/30/20 04:50 Monocytes % (Manual) 7 % (4-9) 06/30/20 04:50 Eosinophils % (Manual) 4 % (0-6) 06/29/20 05:10 Plt Morphology Comment Normal (NORMAL) 06/30/20 04:50 RBC Morphology Normal (NORMAL) 06/30/20 04:50 Sample Site Lr 06/30/20 05:25 ABG pH 7.470 (7.35-7.45) H 06/30/20 05:25 ABG pCO2 54.0 mmHg (35.0-45.0) H* 06/30/20 05:25 ABG pO2 104.0 mmHg (80.0-100.0) H 06/30/20 05:25 ABG HCO3 39.3 mmol/L (22-26) H* 06/30/20 05:25 ABG O2 Saturation 98.0 % (90-100) 06/30/20 05:25 ABG Base Excess 13.5 mmol/L (-2.0-2.0) H 06/30/20 05:25 Luis F Test Pos 06/30/20 05:25 A-a Gradient 542.0 mmHg 06/30/20 05:25 FiO2 100.0 06/30/20 05:25 Blood Gas Comments Ghislaine well ae 06/30/20 05:25 Sodium 138 mmol/L (136-145) 06/30/20 04:50 Corrected Sodium 143 mmol/L (136-145) 06/30/20 04:50 Potassium 3.9 mmol/L (3.5-5.1) 06/30/20 04:50 Chloride 100 mmol/L (98-107) 06/30/20 04:50 Carbon Dioxide 37.6 mmol/L (21-32) H 06/30/20 04:50 BUN 14 mg/dL (7-18) 06/30/20 04:50 Creatinine 0.77 mg/dL (0.55-1.02) 06/30/20 04:50 Est GFR (MDRD) Af Amer > 60 (>60) 06/30/20 04:50 Est GFR (MDRD) Non-Af > 60 (>60) 06/30/20 04:50 Glucose 305 mg/dL (65-99) H 06/30/20 04:50 Calcium 8.1 mg/dL (8.5-10.1) L 06/30/20 04:50 Corrected Calcium 9.5 mg/dL (8.5-10.1) 06/30/20 04:50 Magnesium 2.3 mg/dL (1.7-2.9) 06/25/20 04:47 Ferritin 458 ng/mL (8-252) H 06/30/20 04:50 Total Bilirubin 1.00 mg/dL (0.2-1.0) 06/30/20 04:50 AST 44 Units/L (15-37) H 06/30/20 04:50 ALT 20 Units/L (12-78) 06/30/20 04:50 Alkaline Phosphatase 74 Units/L (46-116) 06/30/20 04:50 Troponin I < 0.02 ng/mL (0-1.5) 06/23/20 18:57 C-Reactive Protein 10.00 mg/L (0-3.0) H 06/30/20 04:50 Total Protein 5.6 g/dL (6.4-8.2) L 06/30/20 04:50 Albumin 2.2 g/dL (3.4-5.0) L 06/30/20 04:50 Globulin 3.4 g/dL (2.5-4.5) 06/30/20 04:50 Albumin/Globulin Ratio 0.6 Ratio (1.1-2.1) L 06/30/20 04:50 Specimen Type Clean catch urine 06/28/20 01:20 Urine Color Yellow (YELLOW) 06/28/20 01:20 Urine Appearance Clear (CLEAR) 06/28/20 01:20 Urine pH 5.0 (5.0 - 8.0) 06/28/20 01:20 Ur Specific [place] 1.020 (1.000-1.030) 06/28/20 01:20 Urine Protein 1+ (NEGATIVE) 06/28/20 01:20 Urine Glucose (UA) Negative (NEGATIVE) 06/28/20 01:20 Urine Ketones Negative (NEGATIVE) 06/28/20 01:20 Urine Occult Blood Negative (NEGATIVE) 06/28/20 01:20 Urine Nitrite Negative (NEGATIVE) 06/28/20 01:20 Urine Bilirubin Negative (NEGATIVE) 06/28/20 01:20 Urine Urobilinogen Normal (NORMAL) 06/28/20 01:20 Ur Leukocyte Esterase Negative (NEGATIVE) 06/28/20 01:20 Urine RBC None seen /HPF (0-3) 06/28/20 01:20 Urine WBC 0-2 /HPF (0-5) 06/28/20 01:20 Ur Squamous Epith Cells Rare /HPF (NEGATIVE) 06/28/20 01:20 Urine Bacteria Negative /HPF (NEGATIVE) 06/28/20 01:20 Urine Mucus Few /HPF (NEGATIVE) 06/28/20 01:20 Ur Culture Indicated? No/not indicated 06/28/20 01:20 SARS-CoV-2 (PCR) Positive (NEGATIVE) A 06/25/20 14:55 Blood Type A POSITIVE 06/25/20 11:00 Antibody Screen Cancelled 06/25/20 11:00 - Plan (1) Pneumonia Status: Acute Qualifiers: Pneumonia type: due to unspecified organism Laterality: left Lung location: lower lobe of lung Qualified Code(s): J18.9 - Pneumonia, unspecified organism Plan: NS AT [facility], REMDESIVIR 100MG IV DAILY, SOLU-MEDROL 125MG IV Q8H, LOVENOX 30MG SC BID, DUONEBS TID, PULMICORT NEBS BID, THE POTASSIUM AND MAGNESIUM PROTOCOL, ASCORBIC ACID 1500MG IV Q6H, VITAMIN A DAILY, ZINC 220MG PO BID, AND A ZOFRAN COCKTAIL, PLASMA WHEN AVAILABLE (2) Suspected COVID-19 virus infection Status: Acute
--- NOTE | 2020-06-30 10:38 | PCM.PROG ---
Progress Note - Progress Note for Day of Date of Exam: 06/30/20 - Subjective Subjective: IS BEING TREATED FOR PNEUMONIA DUE TO SUSPECTED COVID- 19 AND RESPIRATORY DISTRESS. TODAY, SHE IS ALERT AND ORIENTED, LYING IN BED ON MORNING ROUNDS. SHE CONTINUES WITH COMPLAINTS OF COUGH, SHORNTESS OF BREATH, WEAKNESS, AND BODY ACHES. SHE IS CURRENTLY UTILIZING THE NON-REBREATHER. SHE CONTINUES TO REPORT SLIGHT IMPROVEMENT IN SYMPTOMS TODAY. ON EXAMINATION, HEART IS REGULAR IN RATE AND RHYTHM. BILATERAL LUNGS ARE NOTED WITH SCATTERED WHEEZING THROUGHOUT. ABDOMEN IS ROUND, SOFT, AND NON-TENDER WITH NORMAL BOWEL SOUNDS NOTED IN ALL QUADRANTS. HER VITALS THIS MORNING ARE: 97.7-58-17-96%NRB-137/71. LABS WERE OBTAINED. ABNORMAL LAB VALUES INCLUDE THE FOLLOWING: WBC 10.7, CARBON DIOXIDE 37.6, GLUCOSE 305, CALCIUM 8.1, FERRITIN 458, AST 44, CRP 10.00, TOTAL PROTEIN 5.6, ALBUMIN 2.2. AN ABG WAS OBTAINED AND REVEALED: PH 7.480, PC02 52, P02 122, HC03 38.7, 02 SAT 99, BASE EXCESS 13.2, FI02 100. A CHEST XRAY WAS OBTAINED AND REVEALED: Increasing bilateral pulmonary infiltrates consistent with multifocal pneumonia. Superimposed element of pulmonary edema may be present. SHE IS CURRENTLY RECEIVING NS AT KVO, SOLU-MEDROL 125MG IV Q8H, LOVENOX 30MG SC BID, DUONEBS TID, PULMICORT NEBS BID, MORPHINE 2MG TO NEB [place] Q6H, THE POTASSIUM AND MAGNESIUM PROTOCOL, ASCORBIC ACID 1500MG IV Q6H, VITAMIN A DAILY, ZINC 220MG PO BID, AND A ZOFRAN COCKTAIL. SHE HAS RECEIVED ONE UNIT OF CO NVALESCENT PLASMA AND WILL RECEIVE ANOTHER WHEN IT BECOMES AVAILABLE. WE WILL CONTINUE WITH CURRENT PLAN OF CARE TODAY. OTHERWISE, WE PLAN TO FOLLOW UP WITH AM LABS, CHEST XRAY, AND ABG AND CONTINUE TO MONITOR. - Past Medical Family Social History Past Med/Fam/Surg Hx: No changes since H&P Allergies: Allergies Sulfa (Sulfonamide Antibiotics) [SULFA] Allergy (Verified 06/23/20 12:40) - Review of Systems ROS: No change since H&P - Vital Signs and I&O's Vital Signs: Temperature 97.7 F Pulse Rate [Right Brachial] 58 Pulse Rate 72 Respiratory Rate 17 Blood Pressure [Right Arm] 137/71 Blood Pressure 120/55 O2 Sat by Pulse Oximetry 96 Intake and Output: Intake & Output 06/27/20 06/28/20 06/29/20 06/30/20 11:59 11:59 11:59 11:59 Intake Total 2814 / 2814 1562 / 1562 3007 / 3007 2259 / 2259 Output Total 530 / 530 850 / 850 2450 / 2450 Balance 2814 / 2814 1032 / 1032 2157 / 2157 -191 / -191 - Physical Exam Oriented: Normal Eyes: Normal Ear: Normal Nose: Normal Throat: Normal Respiratory: Generalized, Diminished, Wheezes Cardiovascular: Normal : Normal Auscultation: Bowel Sounds: Normal Tenderness: Normal Skin: Normal Musculoskeletal: Normal Psychiatric: Normal Mood Description: Calm Affect: Normal Speech Pattern: Clear, Appropriate - Laboratory and Diagnostics Result Diagrams: 06/30/20 04:50 06/30/20 04:50 Labs: Laboratory WBC 10.7 X10^3/uL (3.6-10.0) H 06/30/20 04:50 RBC 4.48 X10^6/uL (3.5-5.4) 06/30/20 04:50 Hgb 12.7 g/dL (12.0-16.0) 06/30/20 04:50 Hct 37.0 % (36.0-47.0) 06/30/20 04:50 MCV 82.7 fL (80.0-100.0) 06/30/20 04:50 MCH 28.4 pg (27.0-34.0) 06/30/20 04:50 MCHC 34.4 g/dL (33.0-35.0) 06/30/20 04:50 RDW 13.0 % (11.6-16.5) 06/30/20 04:50 Plt Count 227 X10^3/uL (150.0-450.0) 06/30/20 04:50 Plt Count Comment Adequate (ADEQUATE) 06/30/20 04:50 MPV 7.8 fL (7.4-11.0) 06/30/20 04:50 Neut % (Auto) 93.6 % (42.0-75.0) H 06/30/20 04:50 Lymph % (Auto) 2.5 % (21.0-51.0) L 06/30/20 04:50 [place] % (Auto) 3.7 % (0.0-13.0) 06/30/20 04:50 Eos % (Auto) 0.0 % (0.9-2.9) L 06/30/20 04:50 Baso % (Auto) 0.2 % (0.2-1.0) 06/30/20 04:50 Neut # (Auto) 10.0 x10^3/uL (2.2-4.8) H 06/30/20 04:50 Lymph # (Auto) 0.3 X10^3/uL (1.3-2.9) L 06/30/20 04:50 [place] # (Auto) 0.4 x10^3/uL (0.3-0.8) 06/30/20 04:50 Eos # (Auto) 0.0 x10^3/uL (0.0-0.2) 06/30/20 04:50 Baso # (Auto) 0.0 X10^3/uL (0.0-0.1) 06/30/20 04:50 Absolute Nucleated RBC 0.0 /100WBC 06/30/20 04:50 Total Counted 100 06/30/20 04:50 Neutrophils % (Manual) 87 % (39-76) H 06/30/20 04:50 Band Neutrophils % 2 % (0-10) 06/30/20 04:50 Lymphocytes % (Manual) 4 % (13-43) L 06/30/20 04:50 Monocytes % (Manual) 7 % (4-9) 06/30/20 04:50 Eosinophils % (Manual) 4 % (0-6) 06/29/20 05:10 Plt Morphology Comment Normal (NORMAL) 06/30/20 04:50 RBC Morphology Normal (NORMAL) 06/30/20 04:50 Sample Site Lr 06/30/20 05:25 ABG pH 7.470 (7.35-7.45) H 06/30/20 05:25 ABG pCO2 54.0 mmHg (35.0-45.0) H* 06/30/20 05:25 ABG pO2 104.0 mmHg (80.0-100.0) H 06/30/20 05:25 ABG HCO3 39.3 mmol/L (22-26) H* 06/30/20 05:25 ABG O2 Saturation 98.0 % (90-100) 06/30/20 05:25 ABG Base Excess 13.5 mmol/L (-2.0-2.0) H 06/30/20 05:25 Luis F Test Pos 06/30/20 05:25 A-a Gradient 542.0 mmHg 06/30/20 05:25 FiO2 100.0 06/30/20 05:25 Blood Gas Comments Ghislaine well ae 06/30/20 05:25 Sodium 138 mmol/L (136-145) 06/30/20 04:50 Corrected Sodium 143 mmol/L (136-145) 06/30/20 04:50 Potassium 3.9 mmol/L (3.5-5.1) 06/30/20 04:50 Chloride 100 mmol/L (98-107) 06/30/20 04:50 Carbon Dioxide 37.6 mmol/L (21-32) H 06/30/20 04:50 BUN 14 mg/dL (7-18) 06/30/20 04:50 Creatinine 0.77 mg/dL (0.55-1.02) 06/30/20 04:50 Est GFR (MDRD) Af Amer > 60 (>60) 06/30/20 04:50 Est GFR (MDRD) Non-Af > 60 (>60) 06/30/20 04:50 Glucose 305 mg/dL (65-99) H 06/30/20 04:50 Calcium 8.1 mg/dL (8.5-10.1) L 06/30/20 04:50 Corrected Calcium 9.5 mg/dL (8.5-10.1) 06/30/20 04:50 Magnesium 2.3 mg/dL (1.7-2.9) 06/25/20 04:47 Ferritin 458 ng/mL (8-252) H 06/30/20 04:50 Total Bilirubin 1.00 mg/dL (0.2-1.0) 06/30/20 04:50 AST 44 Units/L (15-37) H 06/30/20 04:50 ALT 20 Units/L (12-78) 06/30/20 04:50 Alkaline Phosphatase 74 Units/L (46-116) 06/30/20 04:50 Troponin I < 0.02 ng/mL (0-1.5) 06/23/20 18:57 C-Reactive Protein 10.00 mg/L (0-3.0) H 06/30/20 04:50 Total Protein 5.6 g/dL (6.4-8.2) L 06/30/20 04:50 Albumin 2.2 g/dL (3.4-5.0) L 06/30/20 04:50 Globulin 3.4 g/dL (2.5-4.5) 06/30/20 04:50 Albumin/Globulin Ratio 0.6 Ratio (1.1-2.1) L 06/30/20 04:50 Specimen Type Clean catch urine 06/28/20 01:20 Urine Color Yellow (YELLOW) 06/28/20 01:20 Urine Appearance Clear (CLEAR) 06/28/20 01:20 Urine pH 5.0 (5.0 - 8.0) 06/28/20 01:20 Ur Specific [place] 1.020 (1.000-1.030) 06/28/20 01:20 Urine Protein 1+ (NEGATIVE) 06/28/20 01:20 Urine Glucose (UA) Negative (NEGATIVE) 06/28/20 01:20 Urine Ketones Negative (NEGATIVE) 06/28/20 01:20 Urine Occult Blood Negative (NEGATIVE) 06/28/20 01:20 Urine Nitrite Negative (NEGATIVE) 06/28/20 01:20 Urine Bilirubin Negative (NEGATIVE) 06/28/20 01:20 Urine Urobilinogen Normal (NORMAL) 06/28/20 01:20 Ur Leukocyte Esterase Negative (NEGATIVE) 06/28/20 01:20 Urine RBC None seen /HPF (0-3) 06/28/20 01:20 Urine WBC 0-2 /HPF (0-5) 06/28/20 01:20 Ur Squamous Epith Cells Rare /HPF (NEGATIVE) 06/28/20 01:20 Urine Bacteria Negative /HPF (NEGATIVE) 06/28/20 01:20 Urine Mucus Few /HPF (NEGATIVE) 06/28/20 01:20 Ur Culture Indicated? No/not indicated 06/28/20 01:20 SARS-CoV-2 (PCR) Positive (NEGATIVE) A 06/25/20 14:55 Blood Type A POSITIVE 06/25/20 11:00 Antibody Screen Cancelled 06/25/20 11:00 - Plan (1) Pneumonia Status: Acute Qualifiers: Pneumonia type: due to unspecified organism Laterality: left Lung location: lower lobe of lung Qualified Code(s): J18.9 - Pneumonia, unspecified organism Plan: NS AT [facility], SOLU-MEDROL 125MG IV Q8H, LOVENOX 30MG SC BID, DUONEBS TID, PULMICORT NEBS BID, THE POTASSIUM AND MAGNESIUM PROTOCOL, ASCORBIC ACID 1500MG IV Q6H, VITAMIN A DAILY, ZINC 220MG PO BID, AND A ZOFRAN COCKTAIL, PLASMA WHEN AVAILABLE (2) Suspected COVID-19 virus infection Status: Acute
[2020-06-30] MEDS: SNACK - Diabetic Appropriate PO SCH (20:31)
[2020-06-30] MEDS: CRESTOR TAB 10 MG PO SCH (21:31)
[2020-06-30] MEDS: COLACE CAP 100 MG PO SCH (21:31)
[2020-06-30] MEDS: NS 1000 ML 1,000 ML IV SCH (22:13)
[2020-06-30] MEDS: XANAX PO PRN (22:35)
[2020-07-01] MEDS: ASCORBIC ACID INJ MULTI-DOSE VIAL 1,500 MG in NS 100 ML IV 100 ML IV SCH ×2 (03:01→10:23)
[2020-07-01 05:34] LABS: ABG BASE EXCESS 13.5 mmol/L (-2.0-2.0)
[2020-07-01 05:35] LABS: ABG ALLEN TEST POS; ABG HCO3 40.1 mmol/L (22-26)
[2020-07-01 06:24] LABS: ALANINE AMINOTRANSFERASE 19 Units/L (12-78); ALBUMIN 2.1 g/dL (3.4-5.0); ALKALINE PHOSPHATASE 70 Units/L (46-116); ASPARTATE AMINO TRANSFERASE 42 Units/L (15-37); BLOOD UREA NITROGEN 14 mg/dL (7-18); CALCIUM 7.8 mg/dL (8.5-10.1); CARBON DIOXIDE 39.7 mmol/L (21-32); CHLORIDE 101 mmol/L (98-107); COR CA(FOR HYPOALB) 9.3 mg/dL (8.5-10.1); COR NA(FOR HYPERGLY) 144 mmol/L (136-145); CREATININE 0.72 mg/dL (0.55-1.02); SODIUM 139 mmol/L (136-145); TOTAL PROTEIN 5.2 g/dL (6.4-8.2); eGFR NON BLACK RACES > 60 (>60)
[2020-07-01] MEDS: TESSALON PERLES PO SCH ×3 (06:31→22:00)
[2020-07-01] MEDS: SOLU-Medrol 125 MG VIAL IVP SCH ×3 (06:31→21:00)
[2020-07-01] MEDS: HumuLIN R SUBCUT PRN ×3 (06:32→21:00)
[2020-07-01] MEDS: MORPHINE SULFATE JET NEB NEB SCH ×4 (06:41→21:45)
[2020-07-01] MEDS: SALINE 0.9% 3 ML NEB TX NEB PRN (06:41)
[2020-07-01 06:45] LABS: BASOPHILS % (AUTO) 0 % (0.2-1.0); HEMATOCRIT 36.4 % (36.0-47.0); HEMOGLOBIN 12.2 g/dL (12.0-16.0); LYMPHOCYTES # (AUTO) 0.2 X10^3/uL (1.3-2.9); LYMPHOCYTES % (AUTO) 1.8 % (21.0-51.0); MEAN CORPUSCULAR HEMOGLOBIN 28.2 pg (27.0-34.0); MEAN CORPUSCULAR HGB CONC 33.4 g/dL (33.0-35.0); MEAN CORPUSCULAR VOLUME 84.4 fL (80.0-100.0); MEAN PLATELET VOLUME 8.5 fL (7.4-11.0); MONOCYTES # (AUTO) 0.4 x10^3/uL (0.3-0.8); MONOCYTES % (AUTO) 3.4 % (0.0-13.0); NEUTROPHILS # (AUTO) 11.8 x10^3/uL (2.2-4.8); NEUTROPHILS % (AUTO) 94.8 % (42.0-75.0); PLATELET COUNT 212 X10^3/uL (150.0-450.0); RED BLOOD COUNT 4.31 X10^6/uL (3.5-5.4); RED CELL DISTRIBUTION WIDTH 12.7 % (11.6-16.5); WHITE BLOOD COUNT 12.4 X10^3/uL (3.6-10.0)
--- NOTE | 2020-07-01 07:07 | RAD ---
HISTORYFollow-up COVID-19STUDYChest AP [id number]/22/2020FINDINGSPatient is rotated to the left. There is a right IJ line in good position. The heart remains enlarged. Bilateral patchy and confluent alveolar infiltrates are unchang ed. No pleural effusions are identified. Bony thorax is unremarkable.IMPRESSIONNo significant change from the prior examinationElectronically signed by: DUNIA KNIGHT (Jul 01, 2020 07:06:46)
[2020-07-01 07:23] LABS: BAND NEUTROPHILS % 6 % (0-10); PLATELET MORPHOLOGY COMMENT NORMAL (NORMAL)
[2020-07-01] MEDS: DUONEB 0.5 MG/3 MG (3 mL) NEB SCH ×4 (09:00→21:40)
[2020-07-01] MEDS: PULMICORT NEB TX 0.5 MG NEB SCH ×2 (09:00→21:45)
[2020-07-01] MEDS: LEVAQUIN PREMIX IV 750 MG 750 MG/150 ML BAG IV SCH (09:49)
[2020-07-01] MEDS: ELIQUIS PO SCH ×2 (10:16→21:00)
[2020-07-01] MEDS: JANUVIA PO SCH (10:18)
[2020-07-01] MEDS: VITAMIN A PO SCH (10:19)
[2020-07-01] MEDS: TUSSIONEX PENNKINETIC SUSP PO SCH ×2 (10:19→21:00)
[2020-07-01] MEDS: SINGULAIR TAB 10 MG PO SCH (10:19)
[2020-07-01] MEDS: FLONASE NASAL SPRAY ENOSTRIL SCH ×2 (10:19→21:00)
[2020-07-01] MEDS: ZINC SULFATE PO SCH ×2 (10:20→21:00)
[2020-07-01] MEDS: VITAMIN D3 125 mcg (5,000 UNITS) PO SCH (10:21)
[2020-07-01] MEDS: MILK OF MAGNESIA PO SCH (10:21)
[2020-07-01] MEDS: NEBIVOLOL 2.5 MG PO SCH (10:21)
[2020-07-01] MEDS: ASCORBIC ACID INJ MULTI-DOSE VIAL 1,500 MG in NS 50 ML IV 50 ML IV SCH ×2 (14:32→21:00)
[2020-07-01] MEDS: SNACK - Diabetic Appropriate PO SCH (20:00)
[2020-07-01] MEDS: CRESTOR TAB 10 MG PO SCH (21:00)
[2020-07-01] MEDS: COLACE CAP 100 MG PO SCH (21:00)
[2020-07-01] MEDS: XANAX PO PRN (21:00)
[2020-07-02] MEDS: NS 1000 ML 1,000 ML IV SCH ×3 (03:10→23:23)
[2020-07-02] MEDS: ASCORBIC ACID INJ MULTI-DOSE VIAL 1,500 MG in NS 50 ML IV 50 ML IV SCH ×4 (03:11→20:44)
[2020-07-02] MEDS: SALINE 0.9% 3 ML NEB TX NEB PRN (05:58)
[2020-07-02] MEDS: MORPHINE SULFATE JET NEB NEB SCH ×4 (05:58→21:36)
[2020-07-02] MEDS ORDERED: SOLU-Medrol 125 MG VIAL ONE (06:01)
[2020-07-02] MEDS: SOLU-Medrol 125 MG VIAL IVP SCH ×4 (06:10→22:29)
[2020-07-02] MEDS: TESSALON PERLES PO SCH ×3 (06:10→22:29)
[2020-07-02] MEDS: HumuLIN R SUBCUT PRN ×4 (06:12→22:30)
[2020-07-02 06:13] LABS: ABG ALLEN TEST POS; ABG HCO3 45.2 mmol/L (22-26)
[2020-07-02 06:30] LABS: ALANINE AMINOTRANSFERASE 20 Units/L (12-78); ALKALINE PHOSPHATASE 61 Units/L (46-116); ASPARTATE AMINO TRANSFERASE 41 Units/L (15-37); BLOOD UREA NITROGEN 16 mg/dL (7-18); CALCIUM 7.7 mg/dL (8.5-10.1); CARBON DIOXIDE 36.5 mmol/L (21-32); CHLORIDE 101 mmol/L (98-107); COR CA(FOR HYPOALB) 9.3 mg/dL (8.5-10.1); COR NA(FOR HYPERGLY) 142 mmol/L (136-145); CREATININE 0.65 mg/dL (0.55-1.02); SODIUM 138 mmol/L (136-145); TOTAL PROTEIN 4.8 g/dL (6.4-8.2); eGFR NON BLACK RACES > 60 (>60)
[2020-07-02 06:55] LABS: BASOPHILS % (AUTO) 0.1 % (0.2-1.0); EOSINOPHILS % (AUTO) 0.1 % (0.9-2.9); HEMATOCRIT 34.2 % (36.0-47.0); HEMOGLOBIN 11.4 g/dL (12.0-16.0); LYMPHOCYTES # (AUTO) 0.5 X10^3/uL (1.3-2.9); MEAN CORPUSCULAR HEMOGLOBIN 28.1 pg (27.0-34.0); MEAN CORPUSCULAR HGB CONC 33.5 g/dL (33.0-35.0); MEAN CORPUSCULAR VOLUME 83.9 fL (80.0-100.0); MEAN PLATELET VOLUME 8.4 fL (7.4-11.0); MONOCYTES # (AUTO) 0.5 x10^3/uL (0.3-0.8); MONOCYTES % (AUTO) 4.2 % (0.0-13.0); NEUTROPHILS # (AUTO) 10.9 x10^3/uL (2.2-4.8); NEUTROPHILS % (AUTO) 91.6 % (42.0-75.0); PLATELET COUNT 196 X10^3/uL (150.0-450.0); RED BLOOD COUNT 4.07 X10^6/uL (3.5-5.4); RED CELL DISTRIBUTION WIDTH 12.9 % (11.6-16.5); WHITE BLOOD COUNT 11.9 X10^3/uL (3.6-10.0)
[2020-07-02 07:56] LABS: PLATELET MORPHOLOGY COMMENT NORMAL (NORMAL)
--- NOTE | 2020-07-02 07:58 | RAD ---
HISTORYShort of breathSTUDYCHEST, 1 VIEWCOMPARISONChest film July 01, 2020FINDINGSThe trachea is midline. There is a right internal jugular central venous catheter tip in the right atrium. The cardiac silhouette is unremarkable . The diffuse bilateral alveolar infiltrates show mild improvement compared to yesterdays film this may be partially due to technique. No effusion is observed.. The bony thorax is unremarkable.IMPRESSIONPersistent bilateral diffuse patchy alveolar infiltrates throughout both lungs that may show minimal improvement compared to yesterdays film.Right internal jugular line in place.Electronically signed by: JIGNA DUQUE (Jul 02, 2020 07:58:05)
--- NOTE | 2020-07-02 08:47 | PCM.PROG ---
Progress Note - Progress Note for Day of Date of Exam: 07/01/20 - Subjective Subjective: IS BEING TREATED FOR PNEUMONIA DUE TO COVID-19 AND RESPIRATORY DISTRESS. TODAY, SHE IS ALERT AND ORIENTED, LYING IN BED ON MORNING ROUNDS. SHE CONTINUES WITH COMPLAINTS OF COUGH, SHORNTESS OF BREATH, WEAKNESS, AND BODY ACHES. SHE IS CURRENTLY UTILIZING THE NON-REBREATHER. SHE CONTINUES TO REPORT SLIGHT IMPROVEMENT IN SYMPTOMS TODAY. ON EXAMINATION, HEART IS REGULAR IN RATE AND RHYTHM. BILATERAL LUNGS ARE NOTED WITH SCATTERED WHEEZING THROUGHOUT. ABDOMEN IS ROUND, SOFT, AND NON-TENDER WITH NORMAL BOWEL SOUNDS NOTED IN ALL QUADRANTS. HER VITALS THIS MORNING ARE: 98.2-65-16-97%NRB-130/67. LABS WERE OBTAINED. ABNORMAL LAB VALUES INCLUDE THE FOLLOWING: WBC 12.4, CARBON DIOXIDE 39.7, GLUCOSE 291, CALCIUM 7.8, FERRITIN 400, AST 42, CRP 6.80, TOTAL PROTEIN 5.2, ALBUMIN 2.1. AN ABG WAS OBTAINED AND REVEALED: PH 7.440, PC02 59, P02 115, HC03 40.1, 02 SAT 99, FI02 100. A CHEST XRAY WAS OBTAINED AND REVEALED: Patient is rotated to the left. There is a right IJ line in good position. The heart remains enlarged. Bilateral patchy and confluent alveolar infiltrates are unchanged. No pleural effusions are identified. Bony thorax is unremarkable. SHE IS CURRENTLY RECEIVING NS AT KVO, SOLU-MEDROL 125MG IV Q8H, LOVENOX 30MG SC BID, DUONEBS TID, PULMICORT NEBS BID, MORPHINE 2MG TO NEB [place] Q6H, THE POTASSIUM AND MAGNESIUM PROTOCOL, ASCORBIC ACID 1500MG IV Q6H, VITAMIN A DAILY, ZINC 220MG PO BID, AND A ZOFRAN COCKTAIL. SHE HAS RECEIVED ONE UNIT OF CONVALESCENT PLASMA AND WILL RECEIVE ANOTHER WHEN IT BECOMES AVAILABLE. WE WILL CONTINUE WITH CURRENT PLAN OF CARE TODAY AND TRANSITION HER TO OXYGEN VIA NASAL CANNULA. OTHERWISE, WE PLAN TO FOLLOW UP WITH AM LABS, CHEST XRAY, AND ABG AND CONTINUE TO MONITOR. - Past Medical Family Social History Past Med/Fam/Surg Hx: No changes since H&P Allergies: Allergies Sulfa (Sulfonamide Antibiotics) [SULFA] Allergy (Verified 06/23/20 12:40) - Review of Systems ROS: No change since H&P - Vital Signs and I&O's Vital Signs: Temperature 98.1 F Pulse Rate [Right Brachial] 75 Pulse Rate 81 Respiratory Rate 30 Blood Pressure [Right Arm] 120/58 Blood Pressure 120/55 O2 Sat by Pulse Oximetry 92 Intake and Output: Intake & Output 06/29/20 06/30/20 07/01/20 07/02/20 11:59 11:59 11:59 11:59 Intake Total 3007 / 3007 2259 / 2259 2031 / 2031 2513 / 2513 Output Total 850 / 850 2450 / 2450 1200 / 1200 1400 / 1400 Balance 2157 / 2157 -191 / -191 831 / 831 1113 / 1113 - Physical Exam Oriented: Normal Eyes: Normal Ear: Normal Nose: Normal Throat: Normal Respiratory: Generalized, Diminished, Wheezes Cardiovascular: Normal : Normal Auscultation: Bowel Sounds: Normal Palpation: Normal Tenderness: Normal Skin: Normal Musculoskeletal: Normal Psychiatric: Normal Mood Description: Calm Affect: Normal Speech Pattern: Clear, Appropriate - Laboratory and Diagnostics Result Diagrams: 07/02/20 05:35 07/02/20 05:35 Labs: Laboratory WBC 11.9 X10^3/uL (3.6-10.0) H 07/02/20 05:35 RBC 4.07 X10^6/uL (3.5-5.4) 07/02/20 05:35 Hgb 11.4 g/dL (12.0-16.0) L 07/02/20 05:35 Hct 34.2 % (36.0-47.0) L 07/02/20 05:35 MCV 83.9 fL (80.0-100.0) 07/02/20 05:35 MCH 28.1 pg (27.0-34.0) 07/02/20 05:35 MCHC 33.5 g/dL (33.0-35.0) 07/02/20 05:35 RDW 12.9 % (11.6-16.5) 07/02/20 05:35 Plt Count 196 X10^3/uL (150.0-450.0) 07/02/20 05:35 Plt Count Comment Adequate (ADEQUATE) 07/02/20 05:35 MPV 8.4 fL (7.4-11.0) 07/02/20 05:35 Neut % (Auto) 91.6 % (42.0-75.0) H 07/02/20 05:35 Lymph % (Auto) 4.0 % (21.0-51.0) L 07/02/20 05:35 [place] % (Auto) 4.2 % (0.0-13.0) 07/02/20 05:35 Eos % (Auto) 0.1 % (0.9-2.9) L 07/02/20 05:35 Baso % (Auto) 0.1 % (0.2-1.0) L 07/02/20 05:35 Neut # (Auto) 10.9 x10^3/uL (2.2-4.8) H 07/02/20 05:35 Lymph # (Auto) 0.5 X10^3/uL (1.3-2.9) L 07/02/20 05:35 [place] # (Auto) 0.5 x10^3/uL (0.3-0.8) 07/02/20 05:35 Eos # (Auto) 0.0 x10^3/uL (0.0-0.2) 07/02/20 05:35 Baso # (Auto) 0.0 X10^3/uL (0.0-0.1) 07/02/20 05:35 Absolute Nucleated RBC 0.0 /100WBC 07/02/20 05:35 Total Counted 100 07/02/20 05:35 Neutrophils % (Manual) 86 % (39-76) H 07/02/20 05:35 Band Neutrophils % 6 % (0-10) 07/01/20 05:10 Lymphocytes % (Manual) 11 % (13-43) L 07/02/20 05:35 Monocytes % (Manual) 3 % (4-9) L 07/02/20 05:35 Eosinophils % (Manual) 4 % (0-6) 06/29/20 05:10 Plt Morphology Comment Normal (NORMAL) 07/02/20 05:35 RBC Morphology Normal (NORMAL) 07/02/20 05:35 Sample Site Rrad 07/02/20 06:05 ABG pH 7.500 (7.35-7.45) H 07/02/20 06:05 ABG pCO2 58.0 mmHg (35.0-45.0) H* 07/02/20 06:05 ABG pO2 56.0 mmHg (80.0-100.0) L 07/02/20 06:05 ABG HCO3 45.2 mmol/L (22-26) H* 07/02/20 06:05 ABG O2 Saturation 91.0 % (90-100) 07/02/20 06:05 ABG Base Excess 19.0 mmol/L (-2.0-2.0) H 07/02/20 06:05 Luis F Test Pos 07/02/20 06:05 A-a Gradient 192.0 mmHg 07/02/20 06:05 FiO2 45.0 07/02/20 06:05 Blood Gas Comments Ghislaine abg well-mtf 07/02/20 06:05 Sodium 138 mmol/L (136-145) 07/02/20 05:35 Corrected Sodium 142 mmol/L (136-145) 07/02/20 05:35 Potassium 4.2 mmol/L (3.5-5.1) 07/02/20 05:35 Chloride 101 mmol/L (98-107) 07/02/20 05:35 Carbon Dioxide 36.5 mmol/L (21-32) H 07/02/20 05:35 BUN 16 mg/dL (7-18) 07/02/20 05:35 Creatinine 0.65 mg/dL (0.55-1.02) 07/02/20 05:35 Est GFR (MDRD) Af Amer > 60 (>60) 07/02/20 05:35 Est GFR (MDRD) Non-Af > 60 (>60) 07/02/20 05:35 Glucose 269 mg/dL (65-99) H 07/02/20 05:35 Calcium 7.7 mg/dL (8.5-10.1) L 07/02/20 05:35 Corrected Calcium 9.3 mg/dL (8.5-10.1) 07/02/20 05:35 Magnesium 2.3 mg/dL (1.7-2.9) 06/25/20 04:47 Ferritin 390 ng/mL (8-252) H 07/02/20 05:35 Total Bilirubin 1.00 mg/dL (0.2-1.0) 07/02/20 05:35 AST 41 Units/L (15-37) H 07/02/20 05:35 ALT 20 Units/L (12-78) 07/02/20 05:35 Alkaline Phosphatase 61 Units/L (46-116) 07/02/20 05:35 Troponin I < 0.02 ng/mL (0-1.5) 06/23/20 18:57 C-Reactive Protein 2.20 mg/L (0-3.0) 07/02/20 05:35 Total Protein 4.8 g/dL (6.4-8.2) L 07/02/20 05:35 Albumin 2.0 g/dL (3.4-5.0) L 07/02/20 05:35 Globulin 2.8 g/dL (2.5-4.5) 07/02/20 05:35 Albumin/Globulin Ratio 0.7 Ratio (1.1-2.1) L 07/02/20 05:35 Specimen Type Clean catch urine 06/28/20 01:20 Urine Color Yellow (YELLOW) 06/28/20 01:20 Urine Appearance Clear (CLEAR) 06/28/20 01:20 Urine pH 5.0 (5.0 - 8.0) 06/28/20 01:20 Ur Specific [place] 1.020 (1.000-1.030) 06/28/20 01:20 Urine Protein 1+ (NEGATIVE) 06/28/20 01:20 Urine Glucose (UA) Negative (NEGATIVE) 06/28/20 01:20 Urine Ketones Negative (NEGATIVE) 06/28/20 01:20 Urine Occult Blood Negative (NEGATIVE) 06/28/20 01:20 Urine Nitrite Negative (NEGATIVE) 06/28/20 01:20 Urine Bilirubin Negative (NEGATIVE) 06/28/20 01:20 Urine Urobilinogen Normal (NORMAL) 06/28/20 01:20 Ur Leukocyte Esterase Negative (NEGATIVE) 06/28/20 01:20 Urine RBC None seen /HPF (0-3) 06/28/20 01:20 Urine WBC 0-2 /HPF (0-5) 06/28/20 01:20 Ur Squamous Epith Cells Rare /HPF (NEGATIVE) 06/28/20 01:20 Urine Bacteria Negative /HPF (NEGATIVE) 06/28/20 01:20 Urine Mucus Few /HPF (NEGATIVE) 06/28/20 01:20 Ur Culture Indicated? No/not indicated 06/28/20 01:20 SARS-CoV-2 (PCR) Positive (NEGATIVE) A 06/25/20 14:55 Blood Type A POSITIVE 06/25/20 11:00 Antibody Screen Cancelled 06/25/20 11:00 - Plan (1) Pneumonia Status: Acute Qualifiers: Pneumonia type: due to unspecified organism Laterality: left Lung location: lower lobe of lung Qualified Code(s): J18.9 - Pneumonia, unspecified organism Plan: NS AT [facility], SOLU-MEDROL 125MG IV Q8H, LOVENOX 30MG SC BID, DUONEBS TID, PULMICORT NEBS BID, THE POTASSIUM AND MAGNESIUM PROTOCOL, ASCORBIC ACID 1500MG IV Q6H, VITAMIN A DAILY, ZINC 220MG PO BID, AND A ZOFRAN COCKTAIL, PLASMA WHEN AVAILABLE (2) Suspected COVID-19 virus infection Status: Acute
[2020-07-02] MEDS: ELIQUIS PO SCH ×2 (08:59→20:47)
[2020-07-02] MEDS: MILK OF MAGNESIA PO SCH (09:00)
[2020-07-02] MEDS: LEVAQUIN PREMIX IV 750 MG 750 MG/150 ML BAG IV SCH (09:00)
[2020-07-02] MEDS: FLONASE NASAL SPRAY ENOSTRIL SCH ×2 (09:00→21:30)
[2020-07-02] MEDS: JANUVIA PO SCH (09:00)
[2020-07-02] MEDS: TUSSIONEX PENNKINETIC SUSP PO SCH ×2 (09:01→20:46)
[2020-07-02] MEDS: SINGULAIR TAB 10 MG PO SCH (09:01)
[2020-07-02] MEDS: VITAMIN D3 125 mcg (5,000 UNITS) PO SCH (09:02)
[2020-07-02] MEDS: VITAMIN A PO SCH (09:02)
[2020-07-02] MEDS: ZINC SULFATE PO SCH ×2 (09:02→20:46)
[2020-07-02] MEDS: NEBIVOLOL 2.5 MG PO SCH (09:03)
[2020-07-02] MEDS: PULMICORT NEB TX 0.5 MG NEB SCH ×2 (09:20→21:36)
[2020-07-02] MEDS: DUONEB 0.5 MG/3 MG (3 mL) NEB SCH ×4 (09:20→21:36)
--- NOTE | 2020-07-02 12:31 | PCM.PROG ---
Progress Note - Progress Note for Day of Date of Exam: 07/02/20 - Subjective Subjective: IS BEING TREATED FOR PNEUMONIA DUE TO COVID-19 AND RESPIRATORY DISTRESS. TODAY, SHE IS ALERT AND ORIENTED, LYING IN BED ON MORNING ROUNDS. SHE CONTINUES WITH COMPLAINTS OF COUGH, SHORNTESS OF BREATH, WEAKNESS, AND BODY ACHES. SHE IS CURRENTLY UTILIZING OXYGEN VIA NASAL CANNULA. SHE DENIES SIGNIFICANT IMPROVEMENT IN SYMPTOMS SINCE PREVIOUS DAY. ON EXAMINATION, HEART IS REGULAR IN RATE AND RHYTHM. BILATERAL LUNGS ARE NOTED WITH SCATTERED WHEEZING THROUGHOUT. ABDOMEN IS ROUND, SOFT, AND NON-TENDER WITH NORMAL BOWEL SOUNDS NOTED IN ALL QUADRANTS. HER VITALS THIS MORNING ARE: 98.1-75-30-92%-120/58. LABS WERE OBTAINED. ABNORMAL LAB VALUES INCLUDE THE FOLLOWING: WBC 11.9, HGB 11.4, HCT 34.2, CARBON DIOXIDE 36.5, GLUCOSE 269, CALCIUM 7.7, FERRITIN 390, AST 41, TOTAL PROTEIN 4.8, ALBUMIN 2.0. AN ABG WAS OBTAINED AND REVEALED: PH 7.500, PC02 58, P02 56, HC03 45.2, 02 SAT 91, FI02 45. A CHEST XRAY WAS OBTAINED AND REVEALED: Persistent bilateral diffuse patchy alveolar infiltrates throughout both lungs that may show minimal improvement compared to yesterdays film. Right internal jugular line in place. SHE IS CURRENTLY RECEIVING NS AT [facility], SOLU- MEDROL 125MG IV Q8H, LOVENOX 30MG SC BID, DUONEBS TID, PULMICORT NEBS BID, MORPHINE 2MG TO NEB TX Q6H, THE POTASSIUM AND MAGNESIUM PROTOCOL, ASCORBIC ACID 1500MG IV Q6H, VITAMIN A DAILY, ZINC 220MG PO BID, AND A ZOFRAN COCKTAIL. SHE HAS RECEIVED ONE UNIT OF CONVALESCENT PLASMA AND WILL RECEIVE ANOTHER WHEN IT BECOMES AVAILABLE. WE WILL CONTINUE WITH CURRENT PLAN OF CARE TODAY. OTHERWISE, WE PLAN TO FOLLOW UP WITH AM LABS, CHEST XRAY, AND ABG AND CONTINUE TO MONITOR. - Past Medical Family Social History Past Med/Fam/Surg Hx: No changes since H&P Allergies: Allergies Sulfa (Sulfonamide Antibiotics) [SULFA] Allergy (Verified 06/23/20 12:40) - Review of Systems ROS: No change since H&P - Vital Signs and I&O's Vital Signs: Temperature 98.1 F Pulse Rate [Right Brachial] 75 Pulse Rate 68 Respiratory Rate 30 Blood Pressure [Right Arm] 120/58 Blood Pressure 120/55 O2 Sat by Pulse Oximetry 19 Intake and Output: Intake & Output 06/30/20 07/01/20 07/02/20 07/03/20 11:59 11:59 11:59 11:59 Intake Total 2259 / 2259 2030 / 2030 2513 / 2513 Output Total 2450 / 2450 1200 / 1200 1400 / 1400 Balance -191 / -191 831 / 831 1113 / 1113 - Physical Exam Oriented: Normal Eyes: Normal Ear: Normal Nose: Normal Throat: Normal Respiratory: Generalized, Diminished, Wheezes Cardiovascular: Normal : Normal Auscultation: Bowel Sounds: Normal Tenderness: Normal Skin: Normal Musculoskeletal: Normal Psychiatric: Normal Mood Description: Calm Affect: Normal Speech Pattern: Clear, Appropriate - Laboratory and Diagnostics Result Diagrams: 07/02/20 05:35 07/02/20 05:35 Labs: Laboratory WBC 11.9 X10^3/uL (3.6-10.0) H 07/02/20 05:35 RBC 4.07 X10^6/uL (3.5-5.4) 07/02/20 05:35 Hgb 11.4 g/dL (12.0-16.0) L 07/02/20 05:35 Hct 34.2 % (36.0-47.0) L 07/02/20 05:35 MCV 83.9 fL (80.0-100.0) 07/02/20 05:35 MCH 28.1 pg (27.0-34.0) 07/02/20 05:35 MCHC 33.5 g/dL (33.0-35.0) 07/02/20 05:35 RDW 12.9 % (11.6-16.5) 07/02/20 05:35 Plt Count 196 X10^3/uL (150.0-450.0) 07/02/20 05:35 Plt Count Comment Adequate (ADEQUATE) 07/02/20 05:35 MPV 8.4 fL (7.4-11.0) 07/02/20 05:35 Neut % (Auto) 91.6 % (42.0-75.0) H 07/02/20 05:35 Lymph % (Auto) 4.0 % (21.0-51.0) L 07/02/20 05:35 [place] % (Auto) 4.2 % (0.0-13.0) 07/02/20 05:35 Eos % (Auto) 0.1 % (0.9-2.9) L 07/02/20 05:35 Baso % (Auto) 0.1 % (0.2-1.0) L 07/02/20 05:35 Neut # (Auto) 10.9 x10^3/uL (2.2-4.8) H 07/02/20 05:35 Lymph # (Auto) 0.5 X10^3/uL (1.3-2.9) L 07/02/20 05:35 [place] # (Auto) 0.5 x10^3/uL (0.3-0.8) 07/02/20 05:35 Eos # (Auto) 0.0 x10^3/uL (0.0-0.2) 07/02/20 05:35 Baso # (Auto) 0.0 X10^3/uL (0.0-0.1) 07/02/20 05:35 Absolute Nucleated RBC 0.0 /100WBC 07/02/20 05:35 Total Counted 100 07/02/20 05:35 Neutrophils % (Manual) 86 % (39-76) H 07/02/20 05:35 Band Neutrophils % 6 % (0-10) 07/01/20 05:10 Lymphocytes % (Manual) 11 % (13-43) L 07/02/20 05:35 Monocytes % (Manual) 3 % (4-9) L 07/02/20 05:35 Eosinophils % (Manual) 4 % (0-6) 06/29/20 05:10 Plt Morphology Comment Normal (NORMAL) 07/02/20 05:35 RBC Morphology Normal (NORMAL) 07/02/20 05:35 Sample Site Rrad 07/02/20 06:05 ABG pH 7.500 (7.35-7.45) H 07/02/20 06:05 ABG pCO2 58.0 mmHg (35.0-45.0) H* 07/02/20 06:05 ABG pO2 56.0 mmHg (80.0-100.0) L 07/02/20 06:05 ABG HCO3 45.2 mmol/L (22-26) H* 07/02/20 06:05 ABG O2 Saturation 91.0 % (90-100) 07/02/20 06:05 ABG Base Excess 19.0 mmol/L (-2.0-2.0) H 07/02/20 06:05 Luis F Test Pos 07/02/20 06:05 A-a Gradient 192.0 mmHg 07/02/20 06:05 FiO2 45.0 07/02/20 06:05 Blood Gas Comments Ghislaine abg well-mtf 07/02/20 06:05 Sodium 138 mmol/L (136-145) 07/02/20 05:35 Corrected Sodium 142 mmol/L (136-145) 07/02/20 05:35 Potassium 4.2 mmol/L (3.5-5.1) 07/02/20 05:35 Chloride 101 mmol/L (98-107) 07/02/20 05:35 Carbon Dioxide 36.5 mmol/L (21-32) H 07/02/20 05:35 BUN 16 mg/dL (7-18) 07/02/20 05:35 Creatinine 0.65 mg/dL (0.55-1.02) 07/02/20 05:35 Est GFR (MDRD) Af Amer > 60 (>60) 07/02/20 05:35 Est GFR (MDRD) Non-Af > 60 (>60) 07/02/20 05:35 Glucose 269 mg/dL (65-99) H 07/02/20 05:35 Calcium 7.7 mg/dL (8.5-10.1) L 07/02/20 05:35 Corrected Calcium 9.3 mg/dL (8.5-10.1) 07/02/20 05:35 Magnesium 2.3 mg/dL (1.7-2.9) 06/25/20 04:47 Ferritin 390 ng/mL (8-252) H 07/02/20 05:35 Total Bilirubin 1.00 mg/dL (0.2-1.0) 07/02/20 05:35 AST 41 Units/L (15-37) H 07/02/20 05:35 ALT 20 Units/L (12-78) 07/02/20 05:35 Alkaline Phosphatase 61 Units/L (46-116) 07/02/20 05:35 Troponin I < 0.02 ng/mL (0-1.5) 06/23/20 18:57 C-Reactive Protein 2.20 mg/L (0-3.0) 07/02/20 05:35 Total Protein 4.8 g/dL (6.4-8.2) L 07/02/20 05:35 Albumin 2.0 g/dL (3.4-5.0) L 07/02/20 05:35 Globulin 2.8 g/dL (2.5-4.5) 07/02/20 05:35 Albumin/Globulin Ratio 0.7 Ratio (1.1-2.1) L 07/02/20 05:35 Specimen Type Clean catch urine 06/28/20 01:20 Urine Color Yellow (YELLOW) 06/28/20 01:20 Urine Appearance Clear (CLEAR) 06/28/20 01:20 Urine pH 5.0 (5.0 - 8.0) 06/28/20 01:20 Ur Specific [place] 1.020 (1.000-1.030) 06/28/20 01:20 Urine Protein 1+ (NEGATIVE) 06/28/20 01:20 Urine Glucose (UA) Negative (NEGATIVE) 06/28/20 01:20 Urine Ketones Negative (NEGATIVE) 06/28/20 01:20 Urine Occult Blood Negative (NEGATIVE) 06/28/20 01:20 Urine Nitrite Negative (NEGATIVE) 06/28/20 01:20 Urine Bilirubin Negative (NEGATIVE) 06/28/20 01:20 Urine Urobilinogen Normal (NORMAL) 06/28/20 01:20 Ur Leukocyte Esterase Negative (NEGATIVE) 06/28/20 01:20 Urine RBC None seen /HPF (0-3) 06/28/20 01:20 Urine WBC 0-2 /HPF (0-5) 06/28/20 01:20 Ur Squamous Epith Cells Rare /HPF (NEGATIVE) 06/28/20 01:20 Urine Bacteria Negative /HPF (NEGATIVE) 06/28/20 01:20 Urine Mucus Few /HPF (NEGATIVE) 06/28/20 01:20 Ur Culture Indicated? No/not indicated 06/28/20 01:20 SARS-CoV-2 (PCR) Positive (NEGATIVE) A 06/25/20 14:55 Blood Type A POSITIVE 06/25/20 11:00 Antibody Screen Cancelled 06/25/20 11:00 - Plan (1) Pneumonia Status: Acute Qualifiers: Pneumonia type: due to unspecified organism Laterality: left Lung location: lower lobe of lung Qualified Code(s): J18.9 - Pneumonia, unspecified organism Plan: NS AT KVO, SOLU-MEDROL 125MG IV Q8H, LOVENOX 30MG SC BID, DUONEBS TID, PULMICORT NEBS BID, THE POTASSIUM AND MAGNESIUM PROTOCOL, ASCORBIC ACID 1500MG IV Q6H, VITAMIN A DAILY, ZINC 220MG PO BID, AND A ZOFRAN COCKTAIL, PLASMA WHEN AVAILABLE (2) Suspected COVID-19 virus infection Status: Acute
[2020-07-02] MEDS ORDERED: BENADRYL INJ 50 MG VIAL IVP ONE (15:02)
[2020-07-02] MEDS: TYLENOL 325 MG TAB PO PRN (15:25)
[2020-07-02] MEDS: CRESTOR TAB 10 MG PO SCH (20:47)
[2020-07-02] MEDS: COLACE CAP 100 MG PO SCH (20:47)
[2020-07-02] MEDS: XANAX PO PRN (20:48)
[2020-07-02] MEDS: SNACK - Diabetic Appropriate PO SCH (22:29)
[2020-07-03] MEDS: ASCORBIC ACID INJ MULTI-DOSE VIAL 1,500 MG in NS 50 ML IV 50 ML IV SCH ×4 (04:00→20:51)
[2020-07-03] MEDS: SALINE 0.9% 3 ML NEB TX NEB PRN (05:40)
[2020-07-03] MEDS: MORPHINE SULFATE JET NEB NEB SCH ×4 (05:40→21:30)
[2020-07-03] MEDS: TESSALON PERLES PO SCH ×3 (05:44→22:00)
[2020-07-03] MEDS: SOLU-Medrol 125 MG VIAL IVP SCH ×3 (05:44→22:00)
[2020-07-03 05:47] LABS: ABG BASE EXCESS 15.1 mmol/L (-2.0-2.0)
[2020-07-03 05:49] LABS: ABG ALLEN TEST POS
--- NOTE | 2020-07-03 06:07 | RAD ---
HISTORYSOBSTUDYCHEST, 1 VIEWCOMPARISONOne day priorTECHNIQUEAP view of the chestFINDINGSRight IJ central line terminates likely just within the right atrium. Cardiac mediastinal contours are stable. Stable bilateral airspace disease. Suspect small pleural effusions. No pneumothorax.IMPRESSIONNo significant change. Consider 2 cm retraction right IJ central line.Electronically signed by: Donal Starks (Jul 03, 2020 06:07:22)
[2020-07-03] MEDS: HumuLIN R SUBCUT PRN ×4 (06:34→23:00)
[2020-07-03 06:56] LABS: BASOPHILS % (AUTO) 0 % (0.2-1.0); HEMATOCRIT 34.4 % (36.0-47.0); HEMOGLOBIN 11.7 g/dL (12.0-16.0); LYMPHOCYTES # (AUTO) 0.3 X10^3/uL (1.3-2.9); LYMPHOCYTES % (AUTO) 2.5 % (21.0-51.0); MEAN CORPUSCULAR HEMOGLOBIN 28.4 pg (27.0-34.0); MEAN CORPUSCULAR HGB CONC 33.9 g/dL (33.0-35.0); MEAN CORPUSCULAR VOLUME 83.9 fL (80.0-100.0); MEAN PLATELET VOLUME 8.7 fL (7.4-11.0); MONOCYTES # (AUTO) 0.4 x10^3/uL (0.3-0.8); NEUTROPHILS # (AUTO) 10.4 x10^3/uL (2.2-4.8); NEUTROPHILS % (AUTO) 93.5 % (42.0-75.0); PLATELET COUNT 174 X10^3/uL (150.0-450.0); RED BLOOD COUNT 4.11 X10^6/uL (3.5-5.4); WHITE BLOOD COUNT 11.1 X10^3/uL (3.6-10.0)
[2020-07-03 07:11] LABS: ALANINE AMINOTRANSFERASE 25 Units/L (12-78); ALBUMIN 2.3 g/dL (3.4-5.0); ALKALINE PHOSPHATASE 64 Units/L (46-116); ASPARTATE AMINO TRANSFERASE 41 Units/L (15-37); BLOOD UREA NITROGEN 14 mg/dL (7-18); CALCIUM 8.1 mg/dL (8.5-10.1); CARBON DIOXIDE 36.3 mmol/L (21-32); CHLORIDE 99 mmol/L (98-107); COR CA(FOR HYPOALB) 9.5 mg/dL (8.5-10.1); COR NA(FOR HYPERGLY) 143 mmol/L (136-145); CREATININE 0.62 mg/dL (0.55-1.02); SODIUM 137 mmol/L (136-145); TOTAL PROTEIN 5.2 g/dL (6.4-8.2); eGFR NON BLACK RACES > 60 (>60)
[2020-07-03] MEDS: ELIQUIS PO SCH ×2 (08:08→21:00)
[2020-07-03] MEDS: LEVAQUIN PREMIX IV 750 MG 750 MG/150 ML BAG IV SCH (08:09)
[2020-07-03] MEDS: FLONASE NASAL SPRAY ENOSTRIL SCH ×2 (08:09→20:53)
[2020-07-03] MEDS: JANUVIA PO SCH (08:09)
[2020-07-03] MEDS: MILK OF MAGNESIA PO SCH (08:09)
[2020-07-03] MEDS: SINGULAIR TAB 10 MG PO SCH (08:10)
[2020-07-03] MEDS: NEBIVOLOL 2.5 MG PO SCH (08:10)
[2020-07-03] MEDS: TUSSIONEX PENNKINETIC SUSP PO SCH ×2 (08:10→20:53)
[2020-07-03] MEDS: VITAMIN A PO SCH (08:10)
[2020-07-03] MEDS: VITAMIN D3 125 mcg (5,000 UNITS) PO SCH (08:11)
[2020-07-03] MEDS: ZINC SULFATE PO SCH ×2 (08:11→20:52)
[2020-07-03 08:38] LABS: PLATELET MORPHOLOGY COMMENT NORMAL (NORMAL)
[2020-07-03] MEDS: DUONEB 0.5 MG/3 MG (3 mL) NEB SCH ×4 (09:20→21:30)
[2020-07-03] MEDS: PULMICORT NEB TX 0.5 MG NEB SCH ×2 (09:20→21:30)
[2020-07-03] MEDS: NS 1000 ML 1,000 ML IV SCH (19:00)
[2020-07-03] MEDS: SNACK - Diabetic Appropriate PO SCH (20:00)
[2020-07-03] MEDS: COLACE CAP 100 MG PO SCH (20:52)
[2020-07-03] MEDS: CRESTOR TAB 10 MG PO SCH (20:54)
[2020-07-03] MEDS: XANAX PO PRN (20:55)
[2020-07-04] MEDS: ASCORBIC ACID INJ MULTI-DOSE VIAL 1,500 MG in NS 50 ML IV 50 ML IV SCH ×4 (04:08→22:57)
[2020-07-04] MEDS: MORPHINE SULFATE JET NEB NEB SCH ×4 (04:50→22:00)
[2020-07-04] MEDS: SALINE 0.9% 3 ML NEB TX NEB PRN ×2 (04:50→10:22)
[2020-07-04 05:04] LABS: ABG BASE EXCESS 12.9 mmol/L (-2.0-2.0)
[2020-07-04 05:05] LABS: ABG HCO3 38.1 mmol/L (22-26)
[2020-07-04 05:06] LABS: BASOPHILS % (AUTO) 0.1 % (0.2-1.0); HEMATOCRIT 33.6 % (36.0-47.0); HEMOGLOBIN 11.4 g/dL (12.0-16.0); LYMPHOCYTES # (AUTO) 0.3 X10^3/uL (1.3-2.9); LYMPHOCYTES % (AUTO) 2.3 % (21.0-51.0); MEAN CORPUSCULAR HEMOGLOBIN 28.7 pg (27.0-34.0); MEAN CORPUSCULAR HGB CONC 33.7 g/dL (33.0-35.0); MEAN CORPUSCULAR VOLUME 84.9 fL (80.0-100.0); MEAN PLATELET VOLUME 9.2 fL (7.4-11.0); MONOCYTES # (AUTO) 0.5 x10^3/uL (0.3-0.8); MONOCYTES % (AUTO) 3.5 % (0.0-13.0); NEUTROPHILS # (AUTO) 13.8 x10^3/uL (2.2-4.8); NEUTROPHILS % (AUTO) 94.1 % (42.0-75.0); PLATELET COUNT 171 X10^3/uL (150.0-450.0); RED BLOOD COUNT 3.96 X10^6/uL (3.5-5.4); WHITE BLOOD COUNT 14.7 X10^3/uL (3.6-10.0)
[2020-07-04 05:12] LABS: ALANINE AMINOTRANSFERASE 29 Units/L (12-78); ALBUMIN 2.4 g/dL (3.4-5.0); ALKALINE PHOSPHATASE 57 Units/L (46-116); ASPARTATE AMINO TRANSFERASE 43 Units/L (15-37); BLOOD UREA NITROGEN 14 mg/dL (7-18); CALCIUM 7.9 mg/dL (8.5-10.1); CARBON DIOXIDE 34.8 mmol/L (21-32); CHLORIDE 100 mmol/L (98-107); COR CA(FOR HYPOALB) 9.2 mg/dL (8.5-10.1); COR NA(FOR HYPERGLY) 143 mmol/L (136-145); CREATININE 0.62 mg/dL (0.55-1.02); SODIUM 137 mmol/L (136-145); TOTAL PROTEIN 5.2 g/dL (6.4-8.2); eGFR NON BLACK RACES > 60 (>60)
[2020-07-04] MEDS: SOLU-Medrol 125 MG VIAL IVP SCH ×3 (05:42→22:58)
[2020-07-04] MEDS: TESSALON PERLES PO SCH ×3 (05:43→22:58)
--- NOTE | 2020-07-04 06:06 | RAD ---
HISTORYShortness of breathSTUDYChest AP [id number]/25/2020FINDINGSThere is a right IJ line with its tip within the right atrium. Th e heart is enlarged. The lungs remain mildly hypoinflated. Bilateral interstitial, ground-glass and p atchy alveolar infiltrates are unchanged in degree or distribution from the prior examination. No ple ural effusions are identified. Bony thorax is unremarkable.IMPRESSIONContinued mild cardiomegaly with out congestive heart failureNo change bilateral interstitial, patchy alveolar and patchy ground-glass infiltrates when compared to the prior examinationElectronically signed by: DUNIA KNIGHT (Jul 04 06:05:48)
[2020-07-04 06:16] LABS: PLATELET MORPHOLOGY COMMENT NORMAL (NORMAL)
[2020-07-04] MEDS: HumuLIN R SUBCUT PRN ×4 (06:24→23:15)
[2020-07-04] MEDS: DUONEB 0.5 MG/3 MG (3 mL) NEB SCH ×4 (08:00→21:00)
[2020-07-04] MEDS: PULMICORT NEB TX 0.5 MG NEB SCH ×2 (08:00→21:00)
--- NOTE | 2020-07-04 08:47 | PCM.PROG ---
Progress Note - Progress Note for Day of Date of Exam: 07/03/20 - Subjective Subjective: IS BEING TREATED FOR PNEUMONIA DUE TO COVID-19 AND RESPIRATORY DISTRESS. TODAY, SHE IS ALERT AND ORIENTED, LYING IN BED ON MORNING ROUNDS. SHE CONTINUES WITH COMPLAINTS OF COUGH, SHORNTESS OF BREATH, WEAKNESS, AND BODY ACHES. SHE IS CURRENTLY UTILIZING OXYGEN VIA NASAL CANNULA AT 6 L/MIN. SHE REPORTS SLIGHT IMPROVEMENT IN SYMPTOMS SINCE YESTERDAY. ON EXAMINATION, HEART IS REGULAR IN RATE AND RHYTHM. BILATERAL LUNGS ARE NOTED WITH SCATTERED WHEEZING THROUGHOUT. ABDOMEN IS ROUND, SOFT, AND NON-TENDER WITH NORMAL BOWEL SOUNDS NOTED IN ALL QUADRANTS. HER VITALS THIS MORNING ARE: 98.1-76-20-89%NC-130/60. LABS WERE OBTAINED. ABNORMAL LAB VALUES INCLUDE THE FOLLOWING: WBC 11.1, HGB 11.7, HCT 34.4, CARBON DIOXIDE 36.3, GLUCOSE 364, CALCIUM 8.1, FERRITIN 396, TOTAL BILI 1.20, AST 41, TOTAL PROTEIN 5.2, ALBUMIN 2.3. AN ABG WAS OBTAINED AND REVEALED: PH 7.480, PC02 55, P02 61, HC03 41, 02 SAT 93, FI02 45. A CHEST XRAY WAS OBTAINED AND REVEALED: Cardiac mediastinal contours are stable. Stable bilateral airspace disease. Suspect small pleural effusions. No pneumothorax. SHE IS CURRENTLY RECEIVING NS AT KVO, SOLU-MEDROL 125MG IV Q8H, LOVENOX 30MG SC BID, DUONEBS TID, PULMICORT NEBS BID, MORPHINE 2MG TO NEB [place] Q6H, THE POTASSIUM AND MAGNESIUM PROTOCOL, ASCORBIC ACID 1500MG IV Q6H, VITAMIN A DAILY, ZINC 220MG PO BID, AND A ZOFRAN COCKTAIL. SHE HAS RECEIVED TWO UNITS OF CONVALESCENT PLASMA AND WILL RECEIVE ANOTHER WHEN IT BECOMES AVAILABLE. WE WILL CONTINUE WITH CURRENT PLAN OF CARE TODAY. OTHERWISE, WE PLAN TO FOLLOW UP WITH AM LABS, CHEST XRAY, AND ABG AND CONTINUE TO MONITOR. - Past Medical Family Social History Past Med/Fam/Surg Hx: No changes since H&P Allergies: Allergies Sulfa (Sulfonamide Antibiotics) [SULFA] Allergy (Verified 06/23/20 12:40) - Review of Systems ROS: No change since H&P - Vital Signs and I&O's Vital Signs: Temperature 98.2 F Pulse Rate [Right Brachial] 72 Pulse Rate 100 Respiratory Rate 17 Blood Pressure [Right Arm] 129/61 Blood Pressure 120/55 O2 Sat by Pulse Oximetry 92 Intake and Output: Intake & Output 07/01/20 07/02/20 07/03/20 07/04/20 11:59 11:59 11:59 11:59 Intake Total 2030 2513 / 2513 1700 / 1700 2825 / 2825 Output Total 1200 / 1200 1400 / 1400 3300 / 3300 1900 / 1900 Balance 831 / 831 1113 / 1113 -1600 / -1600 925 / 925 - Physical Exam Oriented: Normal Eyes: Normal Ear: Normal Nose: Normal Throat: Normal Respiratory: Generalized, Diminished, Wheezes Cardiovascular: Normal : Normal Auscultation: Bowel Sounds: Normal Tenderness: Normal Skin: Normal Musculoskeletal: Normal Psychiatric: Normal Mood Description: Calm Affect: Normal Speech Pattern: Clear, Appropriate - Laboratory and Diagnostics Result Diagrams: 07/04/20 04:20 07/04/20 04:20 Labs: Laboratory WBC 14.7 X10^3/uL (3.6-10.0) H 07/04/20 04:20 RBC 3.96 X10^6/uL (3.5-5.4) 07/04/20 04:20 Hgb 11.4 g/dL (12.0-16.0) L 07/04/20 04:20 Hct 33.6 % (36.0-47.0) L 07/04/20 04:20 MCV 84.9 fL (80.0-100.0) 07/04/20 04:20 MCH 28.7 pg (27.0-34.0) 07/04/20 04:20 MCHC 33.7 g/dL (33.0-35.0) 07/04/20 04:20 RDW 13.0 % (11.6-16.5) 07/04/20 04:20 Plt Count 171 X10^3/uL (150.0-450.0) 07/04/20 04:20 Plt Count Comment Adequate (ADEQUATE) 07/04/20 04:20 MPV 9.2 fL (7.4-11.0) 07/04/20 04:20 Neut % (Auto) 94.1 % (42.0-75.0) H 07/04/20 04:20 Lymph % (Auto) 2.3 % (21.0-51.0) L 07/04/20 04:20 [place] % (Auto) 3.5 % (0.0-13.0) 07/04/20 04:20 Eos % (Auto) 0.0 % (0.9-2.9) L 07/04/20 04:20 Baso % (Auto) 0.1 % (0.2-1.0) L 07/04/20 04:20 Neut # (Auto) 13.8 x10^3/uL (2.2-4.8) H 07/04/20 04:20 Lymph # (Auto) 0.3 X10^3/uL (1.3-2.9) L 07/04/20 04:20 [place] # (Auto) 0.5 x10^3/uL (0.3-0.8) 07/04/20 04:20 Eos # (Auto) 0.0 x10^3/uL (0.0-0.2) 07/04/20 04:20 Baso # (Auto) 0.0 X10^3/uL (0.0-0.1) 07/04/20 04:20 Absolute Nucleated RBC 0.0 /100WBC 07/04/20 04:20 Total Counted 100 07/04/20 04:20 Neutrophils % (Manual) 97 % (39-76) H 07/04/20 04:20 Band Neutrophils % 6 % (0-10) 07/01/20 05:10 Lymphocytes % (Manual) 1 % (13-43) L 07/04/20 04:20 Monocytes % (Manual) 2 % (4-9) L 07/04/20 04:20 Eosinophils % (Manual) 4 % (0-6) 06/29/20 05:10 Plt Morphology Comment Normal (NORMAL) 07/04/20 04:20 RBC Morphology Normal (NORMAL) 07/04/20 04:20 Sample Site Lb 07/04/20 04:58 ABG pH 7.490 (7.35-7.45) H 07/04/20 04:58 ABG pCO2 50.0 mmHg (35.0-45.0) H 07/04/20 04:58 ABG pO2 70.0 mmHg (80.0-100.0) L 07/04/20 04:58 ABG HCO3 38.1 mmol/L (22-26) H* 07/04/20 04:58 ABG O2 Saturation 95.0 % (90-100) 07/04/20 04:58 ABG Base Excess 12.9 mmol/L (-2.0-2.0) H 07/04/20 04:58 Luis F Test N/a 07/04/20 04:58 A-a Gradient 181.0 mmHg 07/04/20 04:58 FiO2 44.0 07/04/20 04:58 Blood Gas Comments Ghislaine well ae 07/04/20 04:58 Sodium 137 mmol/L (136-145) 07/04/20 04:20 Corrected Sodium 143 mmol/L (136-145) 07/04/20 04:20 Potassium 4.4 mmol/L (3.5-5.1) 07/04/20 04:20 Chloride 100 mmol/L (98-107) 07/04/20 04:20 Carbon Dioxide 34.8 mmol/L (21-32) H 07/04/20 04:20 BUN 14 mg/dL (7-18) 07/04/20 04:20 Creatinine 0.62 mg/dL (0.55-1.02) 07/04/20 04:20 Est GFR (MDRD) Af Amer > 60 (>60) 07/04/20 04:20 Est GFR (MDRD) Non-Af > 60 (>60) 07/04/20 04:20 Glucose 357 mg/dL (65-99) H 07/04/20 04:20 Calcium 7.9 mg/dL (8.5-10.1) L 07/04/20 04:20 Corrected Calcium 9.2 mg/dL (8.5-10.1) 07/04/20 04:20 Magnesium 2.3 mg/dL (1.7-2.9) 06/25/20 04:47 Ferritin 422 ng/mL (8-252) H 07/04/20 04:20 Total Bilirubin 1.30 mg/dL (0.2-1.0) H 07/04/20 04:20 AST 43 Units/L (15-37) H 07/04/20 04:20 ALT 29 Units/L (12-78) 07/04/20 04:20 Alkaline Phosphatase 57 Units/L (46-116) 07/04/20 04:20 Troponin I < 0.02 ng/mL (0-1.5) 06/23/20 18:57 C-Reactive Protein 0.60 mg/L (0-3.0) 07/04/20 04:20 Total Protein 5.2 g/dL (6.4-8.2) L 07/04/20 04:20 Albumin 2.4 g/dL (3.4-5.0) L 07/04/20 04:20 Globulin 2.8 g/dL (2.5-4.5) 07/04/20 04:20 Albumin/Globulin Ratio 0.9 Ratio (1.1-2.1) L 07/04/20 04:20 Specimen Type Clean catch urine 06/28/20 01:20 Urine Color Yellow (YELLOW) 06/28/20 01:20 Urine Appearance Clear (CLEAR) 06/28/20 01:20 Urine pH 5.0 (5.0 - 8.0) 06/28/20 01:20 Ur Specific [place] 1.020 (1.000-1.030) 06/28/20 01:20 Urine Protein 1+ (NEGATIVE) 06/28/20 01:20 Urine Glucose (UA) Negative (NEGATIVE) 06/28/20 01:20 Urine Ketones Negative (NEGATIVE) 06/28/20 01:20 Urine Occult Blood Negative (NEGATIVE) 06/28/20 01:20 Urine Nitrite Negative (NEGATIVE) 06/28/20 01:20 Urine Bilirubin Negative (NEGATIVE) 06/28/20 01:20 Urine Urobilinogen Normal (NORMAL) 06/28/20 01:20 Ur Leukocyte Esterase Negative (NEGATIVE) 06/28/20 01:20 Urine RBC None seen /HPF (0-3) 06/28/20 01:20 Urine WBC 0-2 /HPF (0-5) 06/28/20 01:20 Ur Squamous Epith Cells Rare /HPF (NEGATIVE) 06/28/20 01:20 Urine Bacteria Negative /HPF (NEGATIVE) 06/28/20 01:20 Urine Mucus Few /HPF (NEGATIVE) 06/28/20 01:20 Ur Culture Indicated? No/not indicated 06/28/20 01:20 SARS-CoV-2 (PCR) Positive (NEGATIVE) A 06/25/20 14:55 Miscellaneous Test Covid 19 06/26/20 11:10 Blood Type A POSITIVE 06/25/20 11:00 Antibody Screen Cancelled 06/25/20 11:00 - Plan (1) Pneumonia Status: Acute Qualifiers: Pneumonia type: due to unspecified organism Laterality: left Lung lo cation: lower lobe of lung Qualified Code(s): J18.9 - Pneumonia, unspecified organism Plan: NS AT KVO, SOLU-MEDROL 125MG IV Q8H, LOVENOX 30MG SC BID, DUONEBS TID, PULMICORT NEBS BID, THE POTASSIUM AND MAGNESIUM PROTOCOL, ASCORBIC ACID 1500MG IV Q6H, VITAMIN A DAILY, ZINC 220MG PO BID, AND A ZOFRAN COCKTAIL, PLASMA WHEN AVAILABLE (2) Suspected COVID-19 virus infection Status: Acute
[2020-07-04] MEDS: ELIQUIS PO SCH ×2 (09:16→23:01)
[2020-07-04] MEDS: FLONASE NASAL SPRAY ENOSTRIL SCH ×2 (09:17→23:00)
[2020-07-04] MEDS: MILK OF MAGNESIA PO SCH (09:19)
[2020-07-04] MEDS: SINGULAIR TAB 10 MG PO SCH (09:19)
[2020-07-04] MEDS: LEVAQUIN PREMIX IV 750 MG 750 MG/150 ML BAG IV SCH (09:19)
[2020-07-04] MEDS: JANUVIA PO SCH (09:19)
[2020-07-04] MEDS: NEBIVOLOL 2.5 MG PO SCH (09:22)
[2020-07-04] MEDS: TUSSIONEX PENNKINETIC SUSP PO SCH ×2 (09:22→22:58)
[2020-07-04] MEDS: VITAMIN A PO SCH (09:23)
[2020-07-04] MEDS: ZINC SULFATE PO SCH ×2 (09:24→22:58)
[2020-07-04] MEDS: VITAMIN D3 125 mcg (5,000 UNITS) PO SCH (09:24)
[2020-07-04] MEDS: LEVSIN/MAALOX/LIDOC VISC PO SCH ×4 (12:06→22:59)
[2020-07-04] MEDS: PEPCID 20 MG IV PREMIX* 20 MG/50 ML BAG IV SCH ×2 (12:07→22:59)
[2020-07-04] MEDS: PROTONIX INJ 40 MG VIAL IVP SCH ×2 (12:07→22:58)
[2020-07-04] MEDS: COLACE CAP 100 MG PO SCH (22:57)
[2020-07-04] MEDS: SNACK - Diabetic Appropriate PO SCH (23:00)
[2020-07-04] MEDS: CRESTOR TAB 10 MG PO SCH (23:01)
[2020-07-05] MEDS: NS 1000 ML 1,000 ML IV SCH ×3 (00:34→21:29)
[2020-07-05] MEDS: ASCORBIC ACID INJ MULTI-DOSE VIAL 1,500 MG in NS 50 ML IV 50 ML IV SCH ×4 (02:36→21:26)
[2020-07-05 04:40] LABS: BASOPHILS % (AUTO) 0.1 % (0.2-1.0); HEMATOCRIT 34.2 % (36.0-47.0); HEMOGLOBIN 11.5 g/dL (12.0-16.0); LYMPHOCYTES # (AUTO) 0.3 X10^3/uL (1.3-2.9); LYMPHOCYTES % (AUTO) 2.2 % (21.0-51.0); MEAN CORPUSCULAR HEMOGLOBIN 28.6 pg (27.0-34.0); MEAN CORPUSCULAR HGB CONC 33.5 g/dL (33.0-35.0); MEAN CORPUSCULAR VOLUME 85.5 fL (80.0-100.0); MEAN PLATELET VOLUME 9.4 fL (7.4-11.0); MONOCYTES # (AUTO) 0.4 x10^3/uL (0.3-0.8); MONOCYTES % (AUTO) 3.5 % (0.0-13.0); NEUTROPHILS # (AUTO) 11.8 x10^3/uL (2.2-4.8); NEUTROPHILS % (AUTO) 94.2 % (42.0-75.0); PLATELET COUNT 153 X10^3/uL (150.0-450.0); RED CELL DISTRIBUTION WIDTH 12.8 % (11.6-16.5); WHITE BLOOD COUNT 12.5 X10^3/uL (3.6-10.0)
[2020-07-05 04:51] LABS: ALANINE AMINOTRANSFERASE 28 Units/L (12-78); ALBUMIN 2.5 g/dL (3.4-5.0); ALKALINE PHOSPHATASE 62 Units/L (46-116); ASPARTATE AMINO TRANSFERASE 36 Units/L (15-37); BLOOD UREA NITROGEN 13 mg/dL (7-18); CALCIUM 8.1 mg/dL (8.5-10.1); CARBON DIOXIDE 33.9 mmol/L (21-32); CHLORIDE 100 mmol/L (98-107); COR CA(FOR HYPOALB) 9.3 mg/dL (8.5-10.1); COR NA(FOR HYPERGLY) 141 mmol/L (136-145); CREATININE 0.74 mg/dL (0.55-1.02); SODIUM 135 mmol/L (136-145); TOTAL PROTEIN 5.2 g/dL (6.4-8.2); eGFR NON BLACK RACES > 60 (>60)
[2020-07-05 05:02] LABS: PLATELET MORPHOLOGY COMMENT NORMAL (NORMAL)
[2020-07-05] MEDS: SOLU-Medrol 125 MG VIAL IVP SCH ×3 (05:33→21:26)
[2020-07-05] MEDS: TESSALON PERLES PO SCH ×3 (05:33→21:26)
[2020-07-05] MEDS: HumuLIN R SUBCUT PRN ×3 (06:10→17:13)
--- NOTE | 2020-07-05 06:17 | RAD ---
HISTORYSOBSTUDYCHEST, 1 VIEWCOMPARISONOne day priorTECHNIQUEAP view of the chestFINDINGSRight IJ central line in good position. The cardiac and mediastinal contours are stable. No significant change in bilateral airspace and interstitial opacities. Suspect small pleural effusions. No pneumothorax.IMPRESSIONNo significant change.Electronically signed by: Donal Starks (Jul 05, 2020 06:16:09)
[2020-07-05 06:23] LABS: ABG BASE EXCESS 11.4 mmol/L (-2.0-2.0)
[2020-07-05 06:24] LABS: ABG ALLEN TEST POS; ABG HCO3 36.5 mmol/L (22-26)
[2020-07-05] MEDS: FLONASE NASAL SPRAY ENOSTRIL SCH ×2 (09:40→21:28)
[2020-07-05] MEDS: ELIQUIS PO SCH ×2 (09:40→21:28)
[2020-07-05] MEDS: LEVAQUIN PREMIX IV 750 MG 750 MG/150 ML BAG IV SCH (09:41)
[2020-07-05] MEDS: LEVSIN/MAALOX/LIDOC VISC PO SCH ×4 (09:41→21:28)
[2020-07-05] MEDS: JANUVIA PO SCH (09:41)
[2020-07-05] MEDS: MILK OF MAGNESIA PO SCH (09:42)
[2020-07-05] MEDS: TUSSIONEX PENNKINETIC SUSP PO SCH ×2 (09:43→21:27)
[2020-07-05] MEDS: VITAMIN D3 125 mcg (5,000 UNITS) PO SCH (09:43)
[2020-07-05] MEDS: SINGULAIR TAB 10 MG PO SCH (09:43)
[2020-07-05] MEDS: ZINC SULFATE PO SCH ×2 (09:44→21:26)
[2020-07-05] MEDS: MORPHINE SULFATE JET NEB NEB SCH ×3 (10:30→21:22)
[2020-07-05] MEDS: DUONEB 0.5 MG/3 MG (3 mL) NEB SCH ×4 (10:30→21:22)
[2020-07-05] MEDS: PULMICORT NEB TX 0.5 MG NEB SCH ×2 (10:30→21:22)
[2020-07-05] MEDS: VITAMIN A PO SCH (10:31)
[2020-07-05] MEDS: NEBIVOLOL 2.5 MG PO SCH (10:31)
[2020-07-05] MEDS: PROTONIX INJ 40 MG VIAL IVP SCH ×2 (10:31→21:27)
[2020-07-05] MEDS: PEPCID 20 MG IV PREMIX* 20 MG/50 ML BAG IV SCH ×2 (10:32→21:27)
--- NOTE | 2020-07-05 10:41 | PCM.PROG ---
Progress Note - Progress Note for Day of Date of Exam: 07/04/20 - Subjective Subjective: IS BEING TREATED FOR PNEUMONIA DUE TO COVID-19 AND RESPIRATORY DISTRESS. TODAY, SHE IS ALERT AND ORIENTED, LYING IN BED ON MORNING ROUNDS. SHE CONTINUES WITH COMPLAINTS OF COUGH, SHORNTESS OF BREATH, WEAKNESS, AND BODY ACHES. SHE IS CURRENTLY UTILIZING OXYGEN VIA NASAL CANNULA AT 4-5 L/MIN. SHE REPORTS SLIGHT IMPROVEMENT IN SYMPTOMS SINCE YESTERDAY. ON EXAMINATION, HEART IS REGULAR IN RATE AND RHYTHM. BILATERAL LUNGS ARE NOTED WITH SCATTERED WHEEZING THROUGHOUT. ABDOMEN IS ROUND, SOFT, AND NON-TENDER WITH NORMAL BOWEL SOUNDS NOTED IN ALL QUADRANTS. HER VITALS THIS MORNING ARE: 98.7-84-21-90%NC-130/60. LABS WERE OBTAINED. ABNORMAL LAB VALUES INCLUDE THE FOLLOWING: WBC 14.7, HGB 11.4, HCT 33.6, CARBON DIOXIDE 34.8, GLUCOSE 257, CALCIUM 7.9, FERRITIN 422, TOTAL BILI 1.30, AST 43, TOTAL PROTEIN 5.2, ALBUMIN 2.4. AN ABG WAS OBTAINED AND REVEALED: PH 7.490, PC02 50, P02 70, HC03 38.1, 02 SAT 95, BASE EXCESS 12.69, FI02 44. A CHEST XRAY WAS OBTAINED AND REVEALED: Continued mild cardiomegaly without congestive heart failure. No change bilateral interstitial, patchy alveolar and patchy ground-glass infiltrates when compared to the prior examination. SHE IS CURRENTLY RECEIVING NS AT KVO, SOLU- MEDROL 125MG IV Q8H, LOVENOX 30MG SC BID, DUONEBS TID, PULMICORT NEBS BID, MOR PHINE 2MG TO NEB [place] Q6H, THE POTASSIUM AND MAGNESIUM PROTOCOL, ASCORBIC ACID 1500MG IV Q6H, VITAMIN A DAILY, ZINC 220MG PO BID, AND A ZOFRAN COCKTAIL. SHE HAS RECEIVED THREE UNITS OF CONVALESCENT PLASMA. WE WILL CONTINUE WITH CURRENT PLAN OF CARE TODAY. OTHERWISE, WE PLAN TO FOLLOW UP WITH AM LABS, CHEST XRAY, AND ABG AND CONTINUE TO MONITOR. - Past Medical Family Social History Past Med/Fam/Surg Hx: No changes since H&P Allergies: Allergies Sulfa (Sulfonamide Antibiotics) [SULFA] Allergy (Verified 06/23/20 12:40) - Review of Systems ROS: No change since H&P - Vital Signs and I&O's Vital Signs: Temperature 98.4 F Pulse Rate [Right Brachial] 67 Pulse Rate 72 Respiratory Rate 22 Blood Pressure [Right Arm] 138/65 Blood Pressure 120/55 O2 Sat by Pulse Oximetry 3 Intake and Output: Intake & Output 07/02/20 07/03/20 07/04/20 07/05/20 11:59 11:59 11:59 11:59 Intake Total 2513 / 2513 1700 / 1700 2825 / 2825 1974 Output Total 1400 / 1400 3300 / 3300 1900 / 1900 2550 / 2550 Balance 1113 / 1113 -1600 / -1600 925 / 925 -575 / -575 - Physical Exam Oriented: Normal Eyes: Normal Ear: Normal Nose: Normal Throat: Normal Respiratory: Generalized, Diminished, Wheezes Cardiovascular: Normal : Normal Auscultation: Bowel Sounds: Normal Palpation: Normal Tenderness: Normal Skin: Normal Musculoskeletal: Normal Psychiatric: Normal Mood Description: Calm Affect: Normal Speech Pattern: Clear, Appropriate - Laboratory and Diagnostics Result Diagrams: 07/05/20 04:15 07/05/20 04:15 Labs: Laboratory WBC 12.5 X10^3/uL (3.6-10.0) H 07/05/20 04:15 RBC 4.00 X10^6/uL (3.5-5.4) 07/05/20 04:15 Hgb 11.5 g/dL (12.0-16.0) L 07/05/20 04:15 Hct 34.2 % (36.0-47.0) L 07/05/20 04:15 MCV 85.5 fL (80.0-100.0) 07/05/20 04:15 MCH 28.6 pg (27.0-34.0) 07/05/20 04:15 MCHC 33.5 g/dL (33.0-35.0) 07/05/20 04:15 RDW 12.8 % (11.6-16.5) 07/05/20 04:15 Plt Count 153 X10^3/uL (150.0-450.0) 07/05/20 04:15 Plt Count Comment Adequate (ADEQUATE) 07/05/20 04:15 MPV 9.4 fL (7.4-11.0) 07/05/20 04:15 Neut % (Auto) 94.2 % (42.0-75.0) H 07/05/20 04:15 Lymph % (Auto) 2.2 % (21.0-51.0) L 07/05/20 04:15 [place] % (Auto) 3.5 % (0.0-13.0) 07/05/20 04:15 Eos % (Auto) 0.0 % (0.9-2.9) L 07/05/20 04:15 Baso % (Auto) 0.1 % (0.2-1.0) L 07/05/20 04:15 Neut # (Auto) 11.8 x10^3/uL (2.2-4.8) H 07/05/20 04:15 Lymph # (Auto) 0.3 X10^3/uL (1.3-2.9) L 07/05/20 04:15 [place] # (Auto) 0.4 x10^3/uL (0.3-0.8) 07/05/20 04:15 Eos # (Auto) 0.0 x10^3/uL (0.0-0.2) 07/05/20 04:15 Baso # (Auto) 0.0 X10^3/uL (0.0-0.1) 07/05/20 04:15 Absolute Nucleated RBC 0.1 /100WBC 07/05/20 04:15 Total Counted 100 07/05/20 04:15 Neutrophils % (Manual) 96 % (39-76) H 07/05/20 04:15 Band Neutrophils % 6 % (0-10) 07/01/20 05:10 Lymphocytes % (Manual) 2 % (13-43) L 07/05/20 04:15 Monocytes % (Manual) 2 % (4-9) L 07/05/20 04:15 Eosinophils % (Manual) 4 % (0-6) 06/29/20 05:10 Plt Morphology Comment Normal (NORMAL) 07/05/20 04:15 RBC Morphology Normal (NORMAL) 07/05/20 04:15 Sample Site Rr 07/05/20 06:18 ABG pH 7.480 (7.35-7.45) H 07/05/20 06:18 ABG pCO2 49.0 mmHg (35.0-45.0) H 07/05/20 06:18 ABG pO2 68.0 mmHg (80.0-100.0) L 07/05/20 06:18 ABG HCO3 36.5 mmol/L (22-26) H* 07/05/20 06:18 ABG O2 Saturation 95.0 % (90-100) 07/05/20 06:18 ABG Base Excess 11.4 mmol/L (-2.0-2.0) H 07/05/20 06:18 Luis F Test Pos 07/05/20 06:18 A-a Gradient 99.0 mmHg 07/05/20 06:18 FiO2 32.0 07/05/20 06:18 Blood Gas Comments Ghislaine well gmb 07/05/20 06:18 Sodium 135 mmol/L (136-145) L 07/05/20 04:15 Corrected Sodium 141 mmol/L (136-145) 07/05/20 04:15 Potassium 4.4 mmol/L (3.5-5.1) 07/05/20 04:15 Chloride 100 mmol/L (98-107) 07/05/20 04:15 Carbon Dioxide 33.9 mmol/L (21-32) H 07/05/20 04:15 BUN 13 mg/dL (7-18) 07/05/20 04:15 Creatinine 0.74 mg/dL (0.55-1.02) 07/05/20 04:15 Est GFR (MDRD) Af Amer > 60 (>60) 07/05/20 04:15 Est GFR (MDRD) Non-Af > 60 (>60) 07/05/20 04:15 Glucose 357 mg/dL (65-99) H 07/05/20 04:15 Calcium 8.1 mg/dL (8.5-10.1) L 07/05/20 04:15 Corrected Calcium 9.3 mg/dL (8.5-10.1) 07/05/20 04:15 Magnesium 2.3 mg/dL (1.7-2.9) 06/25/20 04:47 Ferritin 422 ng/mL (8-252) H 07/04/20 04:20 Total Bilirubin 1.30 mg/dL (0.2-1.0) H 07/05/20 04:15 AST 36 Units/L (15-37) 07/05/20 04:15 ALT 28 Units/L (12-78) 07/05/20 04:15 Alkaline Phosphatase 62 Units/L (46-116) 07/05/20 04:15 Troponin I < 0.02 ng/mL (0-1.5) 06/23/20 18:57 C-Reactive Protein < 0.50 mg/L (0-3.0) 07/05/20 04:15 Total Protein 5.2 g/dL (6.4-8.2) L 07/05/20 04:15 Albumin 2.5 g/dL (3.4-5.0) L 07/05/20 04:15 Globulin 2.7 g/dL (2.5-4.5) 07/05/20 04:15 Albumin/Globulin Ratio 0.9 Ratio (1.1-2.1) L 07/05/20 04:15 Specimen Type Clean catch urine 06/28/20 01:20 Urine Color Yellow (YELLOW) 06/28/20 01:20 Urine Appearance Clear (CLEAR) 06/28/20 01:20 Urine pH 5.0 (5.0 - 8.0) 06/28/20 01:20 Ur Specific [place] 1.020 (1.000-1.030) 06/28/20 01:20 Urine Protein 1+ (NEGATIVE) 06/28/20 01:20 Urine Glucose (UA) Negative (NEGATIVE) 06/28/20 01:20 Urine Ketones Negative (NEGATIVE) 06/28/20 01:20 Urine Occult Blood Negative (NEGATIVE) 06/28/20 01:20 Urine Nitrite Negative (NEGATIVE) 06/28/20 01:20 Urine Bilirubin Negative (NEGATIVE) 06/28/20 01:20 Urine Urobilinogen Normal (NORMAL) 06/28/20 01:20 Ur Leukocyte Esterase Negative (NEGATIVE) 06/28/20 01:20 Urine RBC None seen /HPF (0-3) 06/28/20 01:20 Urine WBC 0-2 /HPF (0-5) 06/28/20 01:20 Ur Squamous Epith Cells Rare /HPF (NEGATIVE) 06/28/20 01:20 Urine Bacteria Negative /HPF (NEGATIVE) 06/28/20 01:20 Urine Mucus Few /HPF (NEGATIVE) 06/28/20 01:20 Ur Culture Indicated? No/not indicated 06/28/20 01:20 SARS-CoV-2 (PCR) Positive (NEGATIVE) A 06/25/20 14:55 Miscellaneous Test Covid 19 06/26/20 11:10 Blood Type A POSITIVE 06/25/20 11:00 Antibody Screen Cancelled 06/25/20 11:00 - Plan (1) Pneumonia Status: Acute Qualifiers: Pneumonia type: due to unspecified organism Laterality: left Lung location: lower lobe of lung Qualified Code(s): J18.9 - Pneumonia, unspecified organism Plan: NS AT KVO, SOLU-MEDROL 125MG IV Q8H, LOVENOX 30MG SC BID, DUONEBS TID, PULMICORT NEBS BID, THE POTASSIUM AND MAGNESIUM PROTOCOL, ASCORBIC ACID 1500MG IV Q6H, VITAMIN A DAILY, ZINC 220MG PO BID, AND A ZOFRAN COCKTAIL (2) Suspected COVID-19 virus infection Status: Acute
--- NOTE | 2020-07-05 11:54 | PCM.PROG ---
Progress Note - Progress Note for Day of Date of Exam: 07/05/20 - Subjective Subjective: IS BEING TREATED FOR PNEUMONIA DUE TO COVID-19 AND RESPIRATORY DISTRESS. TODAY, SHE IS ALERT AND ORIENTED, LYING IN BED ON MORNING ROUNDS. SHE CONTINUES WITH COMPLAINTS OF SHORTNESS OF BREATH AND WEAKNESS TODAY. SHE IS CURRENTLY UTILIZING OXYGEN VIA NASAL CANNULA AT 3 L/MIN. ON EXAMINATION, HEART IS REGULAR IN RATE AND RHYTHM. BILATERAL LUNGS ARE NOTED WITH DIMINISHED LUNG SOUNDS THROUGHOUT. ABDOMEN IS ROUND, SOFT, AND NON-TENDER WITH NORMAL BOWEL SOUNDS NOTED IN ALL QUADRANTS. HER VITALS THIS MORNING ARE: 98.4-67-14-93%NC-138/65. LABS WERE OBTAINED. ABNORMAL LAB VALUES INCLUDE THE FOLLOWING: WBC 12.5, HGB 11.5, HCT 34.2, SODIUM 135, CARBON DIOXIDE 33.9, GLUCOSE 357, CALCIUM 8.1, TOTAL BILI 1.30, TOTAL PROTEIN 5.2, ALBUMIN 2.5. AN ABG WAS OBTAINED AND REVEALED: PH 7.480, PC02 49.0, P02 68, HC03 36.5, 02 SAT 95, BASE EXCESS 11.4, FI02 32. A CHEST XRAY WAS OBTAINED AND REVEALED: Right IJ central line in good position. The cardiac and mediastinal contours are stable. No significant change in bilateral airspace and interstitial opacities. Suspect small pleural effusions. No pneumothorax. SHE IS CURRENTLY RECEIVING NS AT KVO, SOLU-MEDROL 125MG IV Q8H, LOVENOX 30MG SC BID, DUONEBS TID, PULMICORT NEBS BID, MORPHINE 2MG TO NEB [place] Q6H, THE POTASSIUM AND MAGNESIUM PROTOCOL, ASCORBIC ACID 1500MG IV Q6H, VITAMIN A DAILY, ZINC 220MG PO BID, AND A ZOFRAN COCKTAIL. SHE HAS RECEIVED THREE UNITS OF CONVALESCENT PLASMA. WE WILL CONTINUE WITH CURRENT PLAN OF CARE TODAY. WE WILL ARRANGE FOR HOME OXYGEN WHEN PATIENT IS READY FOR DISCHARGE. OTHERWISE, WE PLAN TO FOLLOW UP WITH AM LABS, CHEST XRAY, AND ABG AND CONTINUE TO MONITOR. - Past Medical Family Social History Past Med/Fam/Surg Hx: No changes since H&P Allergies: Allergies Sulfa (Sulfonamide Antibiotics) [SULFA] Allergy (Verified 06/23/20 12:40) - Review of Systems ROS: No change since H&P - Vital Signs and I&O's Vital Signs: Temperature 98.4 F Pulse Rate [Right Brachial] 67 Pulse Rate 78 Respiratory Rate 22 Blood Pressure [Right Arm] 138/65 Blood Pressure 120/55 O2 Sat by Pulse Oximetry 95 Intake and Output: Intake & Output 07/02/20 07/03/20 07/04/20 07/05/20 11:59 11:59 11:59 11:59 Intake Total 2513 / 2513 1700 / 1700 2825 / 2825 1974 / 1974 Output Total 1400 / 1400 3300 / 3300 1900 / 1900 2550 / 2550 Balance 1113 / 1113 -1600 / -1600 925 / 925 -575 / -575 - Physical Exam Oriented: Normal Eyes: Normal Ear: Normal Nose: Normal Throat: Normal Respiratory: Generalized, Diminished, Wheezes Cardiovascular: Normal : Normal Auscultation: Bowel Sounds: Normal Tenderness: Normal Skin: Normal Musculoskeletal: Normal Psychiatric: Normal Mood Description: Calm Affect: Normal Speech Pattern: Clear, Appropriate - Laboratory and Diagnostics Result Diagrams: 07/05/20 04:15 07/05/20 04:15 Labs: Laboratory WBC 12.5 X10^3/uL (3.6-10.0) H 07/05/20 04:15 RBC 4.00 X10^6/uL (3.5-5.4) 07/05/20 04:15 Hgb 11.5 g/dL (12.0-16.0) L 07/05/20 04:15 Hct 34.2 % (36.0-47.0) L 07/05/20 04:15 MCV 85.5 fL (80.0-100.0) 07/05/20 04:15 MCH 28.6 pg (27.0-34.0) 07/05/20 04:15 MCHC 33.5 g/dL (33.0-35.0) 07/05/20 04:15 RDW 12.8 % (11.6-16.5) 07/05/20 04:15 Plt Count 153 X10^3/uL (150.0-450.0) 07/05/20 04:15 Plt Count Comment Adequate (ADEQUATE) 07/05/20 04:15 MPV 9.4 fL (7.4-11.0) 07/05/20 04:15 Neut % (Auto) 94.2 % (42.0-75.0) H 07/05/20 04:15 Lymph % (Auto) 2.2 % (21.0-51.0) L 07/05/20 04:15 [place] % (Auto) 3.5 % (0.0-13.0) 07/05/20 04:15 Eos % (Auto) 0.0 % (0.9-2.9) L 07/05/20 04:15 Baso % (Auto) 0.1 % (0.2-1.0) L 07/05/20 04:15 Neut # (Auto) 11.8 x10^3/uL (2.2-4.8) H 07/05/20 04:15 Lymph # (Auto) 0.3 X10^3/uL (1.3-2.9) L 07/05/20 04:15 [place] # (Auto) 0.4 x10^3/uL (0.3-0.8) 07/05/20 04:15 Eos # (Auto) 0.0 x10^3/uL (0.0-0.2) 07/05/20 04:15 Baso # (Auto) 0.0 X10^3/uL (0.0-0.1) 07/05/20 04:15 Absolute Nucleated RBC 0.1 /100WBC 07/05/20 04:15 Total Counted 100 07/05/20 04:15 Neutrophils % (Manual) 96 % (39-76) H 07/05/20 04:15 Band Neutrophils % 6 % (0-10) 07/01/20 05:10 Lymphocytes % (Manual) 2 % (13-43) L 07/05/20 04:15 Monocytes % (Manual) 2 % (4-9) L 07/05/20 04:15 Eosinophils % (Manual) 4 % (0-6) 06/29/20 05:10 Plt Morphology Comment Normal (NORMAL) 07/05/20 04:15 RBC Morphology Normal (NORMAL) 07/05/20 04:15 Sample Site Rr 07/05/20 06:18 ABG pH 7.480 (7.35-7.45) H 07/05/20 06:18 ABG pCO2 49.0 mmHg (35.0-45.0) H 07/05/20 06:18 ABG pO2 68.0 mmHg (80.0-100.0) L 07/05/20 06:18 ABG HCO3 36.5 mmol/L (22-26) H* 07/05/20 06:18 ABG O2 Saturation 95.0 % (90-100) 07/05/20 06:18 ABG Base Excess 11.4 mmol/L (-2.0-2.0) H 07/05/20 06:18 Luis F Test Pos 07/05/20 06:18 A-a Gradient 99.0 mmHg 07/05/20 06:18 FiO2 32.0 07/05/20 06:18 Blood Gas Comments Ghislaine well g[facility] 07/05/20 06:18 Sodium 135 mmol/L (136-145) L 07/05/20 04:15 Corrected Sodium 141 mmol/L (136-145) 07/05/20 04:15 Potassium 4.4 mmol/L (3.5-5.1) 07/05/20 04:15 Chloride 100 mmol/L (98-107) 07/05/20 04:15 Carbon Dioxide 33.9 mmol/L (21-32) H 07/05/20 04:15 BUN 13 mg/dL (7-18) 07/05/20 04:15 Creatinine 0.74 mg/dL (0.55-1.02) 07/05/20 04:15 Est GFR (MDRD) Af Amer > 60 (>60) 07/05/20 04:15 Est GFR (MDRD) Non-Af > 60 (>60) 07/05/20 04:15 Glucose 357 mg/dL (65-99) H 07/05/20 04:15 Calcium 8.1 mg/dL (8.5-10.1) L 07/05/20 04:15 Corrected Calcium 9.3 mg/dL (8.5-10.1) 07/05/20 04:15 Magnesium 2.3 mg/dL (1.7-2.9) 06/25/20 04:47 Ferritin 422 ng/mL (8-252) H 07/04/20 04:20 Total Bilirubin 1.30 mg/dL (0.2-1.0) H 07/05/20 04:15 AST 36 Units/L (15-37) 07/05/20 04:15 ALT 28 Units/L (12-78) 07/05/20 04:15 Alkaline Phosphatase 62 Units/L (46-116) 07/05/20 04:15 Troponin I < 0.02 ng/mL (0-1.5) 06/23/20 18:57 C-Reactive Protein < 0.50 mg/L (0-3.0) 07/05/20 04:15 Total Protein 5.2 g/dL (6.4-8.2) L 07/05/20 04:15 Albumin 2.5 g/dL (3.4-5.0) L 07/05/20 04:15 Globulin 2.7 g/dL (2.5-4.5) 07/05/20 04:15 Albumin/Globulin Ratio 0.9 Ratio (1.1-2.1) L 07/05/20 04:15 Specimen Type Clean catch urine 06/28/20 01:20 Urine Color Yellow (YELLOW) 06/28/20 01:20 Urine Appearance Clear (CLEAR) 06/28/20 01:20 Urine pH 5.0 (5.0 - 8.0) 06/28/20 01:20 Ur Specific [place] 1.020 (1.000-1.030) 06/28/20 01:20 Urine Protein 1+ (NEGATIVE) 06/28/20 01:20 Urine Glucose (UA) Negative (NEGATIVE) 06/28/20 01:20 Urine Ketones Negative (NEGATIVE) 06/28/20 01:20 Urine Occult Blood Negative (NEGATIVE) 06/28/20 01:20 Urine Nitrite Negative (NEGATIVE) 06/28/20 01:20 Urine Bilirubin Negative (NEGATIVE) 06/28/20 01:20 Urine Urobilinogen Normal (NORMAL) 06/28/20 01:20 Ur Leukocyte Esterase Negative (NEGATIVE) 06/28/20 01:20 Urine RBC None seen /HPF (0-3) 06/28/20 01:20 Urine WBC 0-2 /HPF (0-5) 06/28/20 01:20 Ur Squamous Epith Cells Rare /HPF (NEGATIVE) 06/28/20 01:20 Urine Bacteria Negative /HPF (NEGATIVE) 06/28/20 01:20 Urine Mucus Few /HPF (NEGATIVE) 06/28/20 01:20 Ur Culture Indicated? No/not indicated 06/28/20 01:20 SARS-CoV-2 (PCR) Positive (NEGATIVE) A 06/25/20 14:55 Miscellaneous Test Covid 19 06/26/20 11:10 Blood Type A POSITIVE 06/25/20 11:00 Antibody Screen Cancelled 06/25/20 11:00 - Plan (1) Pneumonia Status: Acute Qualifiers: Pneumonia type: due to unspecified organism Laterality: left Lung location: lower lobe of lung Qualified Code(s): J18.9 - Pneumonia, unspecified organism Plan: NS AT KVO, SOLU-MEDROL 125MG IV Q8H, LOVENOX 30MG SC BID, DUONEBS TID, PULMICORT NEBS BID, THE POTASSIUM AND MAGNESIUM PROTOCOL, ASCORBIC ACID 1500MG IV Q6H, VITAMIN A DAILY, ZINC 220MG PO BID, AND A ZOFRAN COCKTAIL (2) Suspected COVID-19 virus infection Status: Acute
[2020-07-05] MEDS: SNACK - Diabetic Appropriate PO SCH (21:26)
[2020-07-05] MEDS: COLACE CAP 100 MG PO SCH (21:29)
[2020-07-05] MEDS: CRESTOR TAB 10 MG PO SCH (21:29)
[2020-07-06] MEDS: ASCORBIC ACID INJ MULTI-DOSE VIAL 1,500 MG in NS 50 ML IV 50 ML IV SCH ×2 (03:10→10:13)
[2020-07-06 05:17] LABS: BASOPHILS % (AUTO) 0.1 % (0.2-1.0); HEMOGLOBIN 11.2 g/dL (12.0-16.0); LYMPHOCYTES # (AUTO) 0.4 X10^3/uL (1.3-2.9); LYMPHOCYTES % (AUTO) 2.8 % (21.0-51.0); MEAN CORPUSCULAR HEMOGLOBIN 28.3 pg (27.0-34.0); MEAN CORPUSCULAR HGB CONC 32.9 g/dL (33.0-35.0); MEAN CORPUSCULAR VOLUME 86.1 fL (80.0-100.0); MEAN PLATELET VOLUME 9.8 fL (7.4-11.0); MONOCYTES # (AUTO) 0.6 x10^3/uL (0.3-0.8); MONOCYTES % (AUTO) 4.5 % (0.0-13.0); NEUTROPHILS # (AUTO) 12.1 x10^3/uL (2.2-4.8); NEUTROPHILS % (AUTO) 92.6 % (42.0-75.0); PLATELET COUNT 150 X10^3/uL (150.0-450.0); RED BLOOD COUNT 3.95 X10^6/uL (3.5-5.4); WHITE BLOOD COUNT 13.1 X10^3/uL (3.6-10.0)
[2020-07-06 05:26] LABS: ALANINE AMINOTRANSFERASE 24 Units/L (12-78); ALBUMIN 2.5 g/dL (3.4-5.0); ALKALINE PHOSPHATASE 54 Units/L (46-116); ASPARTATE AMINO TRANSFERASE 28 Units/L (15-37); BLOOD UREA NITROGEN 14 mg/dL (7-18); CALCIUM 8.1 mg/dL (8.5-10.1); CHLORIDE 98 mmol/L (98-107); COR CA(FOR HYPOALB) 9.3 mg/dL (8.5-10.1); COR NA(FOR HYPERGLY) 138 mmol/L (136-145); CREATININE 0.68 mg/dL (0.55-1.02); SODIUM 132 mmol/L (136-145); TOTAL PROTEIN 5.1 g/dL (6.4-8.2); eGFR NON BLACK RACES > 60 (>60)
[2020-07-06 06:09] LABS: BAND NEUTROPHILS % 2 % (0-10); PLATELET MORPHOLOGY COMMENT NORMAL (NORMAL)
--- NOTE | 2020-07-06 06:09 | RAD ---
HISTORYSOBSTUDYCHEST, 1 VIEWCOMPARISONOne day priorTECHNIQUEAP view of the chestFINDINGSCardiac silhouette is stably enlarged. Right IJ central line likely just to the right atrium. Diffuse bilateral airspace interstitial opacities appear similar. No pneumothorax suspect small pleural effusions.IMPRESSIONNo significant change in pulmonary opacities. Right IJ central line just in the right atrium. Considered 3 cm retraction.Electronically signed by: Donal Starks (Jul 06, 2020 06:08:21)
[2020-07-06] MEDS: TESSALON PERLES PO SCH (06:11)
[2020-07-06] MEDS: SOLU-Medrol 125 MG VIAL IVP SCH (06:11)
[2020-07-06] MEDS: HumuLIN R SUBCUT PRN ×2 (06:12→13:08)
[2020-07-06 06:32] LABS: ABG ALLEN TEST POS; ABG BASE EXCESS 10.7 mmol/L (-2.0-2.0); ABG HCO3 35.7 mmol/L (22-26)
[2020-07-06] MEDS ORDERED: MUCOMYST 20% 200 MG/ML NEB SCH (10:15)
[2020-07-06] MEDS: ELIQUIS PO SCH (10:15)
[2020-07-06] MEDS: FLONASE NASAL SPRAY ENOSTRIL SCH (10:16)
[2020-07-06] MEDS: JANUVIA PO SCH (10:16)
[2020-07-06] MEDS: LEVAQUIN PREMIX IV 750 MG 750 MG/150 ML BAG IV SCH (10:17)
[2020-07-06] MEDS: LEVSIN/MAALOX/LIDOC VISC PO SCH (10:18)
[2020-07-06] MEDS: SINGULAIR TAB 10 MG PO SCH (10:18)
[2020-07-06] MEDS: MILK OF MAGNESIA PO SCH (10:19)
[2020-07-06] MEDS: PEPCID 20 MG IV PREMIX* 20 MG/50 ML BAG IV SCH (10:19)
[2020-07-06] MEDS: NEBIVOLOL 2.5 MG PO SCH (10:19)
[2020-07-06] MEDS: PROTONIX INJ 40 MG VIAL IVP SCH (10:20)
[2020-07-06] MEDS: TUSSIONEX PENNKINETIC SUSP PO SCH (10:21)
[2020-07-06] MEDS: VITAMIN A PO SCH (10:21)
[2020-07-06] MEDS: VITAMIN D3 125 mcg (5,000 UNITS) PO SCH (10:22)
[2020-07-06] MEDS: ZINC SULFATE PO SCH (10:22)
[2020-07-06] MEDS: PULMICORT NEB TX 0.5 MG NEB SCH (10:25)
[2020-07-06] MEDS: MORPHINE SULFATE JET NEB NEB SCH (10:25)
[2020-07-06] MEDS: DUONEB 0.5 MG/3 MG (3 mL) NEB SCH ×2 (10:25→14:00)
[2020-07-06 12:29] VITALS: BP 129/60
== END 2020-07-06 14:35 | disposition home or self-care (01) | DRG 177 ==
LOC: ER 12:36 → MED/SURG 20:19 → ICU 06-29 16:03
PROVIDERS: ADMIT Internal Medicine; ATTEND Internal Medicine